=== PATIENT | female | born 1965 | race Caucasian/White ===

== ENCOUNTER → 2016-10-09 | Outpatient (CLI) | payer MEDICARE ==
[~2016-10-09] MED LIST: ACET500C OR; ASPI81TA3 OR; ATARAX OR; CALCI50TA PO; CALCTAB7 PO; CLAR1TAB2 PO; DULO30CA PO; ENDOCET OR; FIOR1CAP PO; FIORCAP3; FIORCAP3 OR; FIORICET; FIORICET PO; FIORTAB PO; FLEXERIL; FLEXERIL OR; FLEXERIL PO; KEFL250C6 PO; LASI20TA OR; MAXA10TA17; OMEP40CA2 PO; OXYC-208 PO; OXYC15TA76 PO; OXYC1SOL PO; PARO40TA87 PO; PAXI40TA OR; PERC10TA17 PO; PERC5TAB8; PERC7.5T PO; PHEN 25 OR; PRIL40CA OR; ROBA750T OR; SIMV40TA2 OR; SIMV80TA PO; SLEEP AIDE PO; THERGRAN OR; TIZA4TAB; TOPI25TA2 OR; TRAM50TA2 OR; TYL325; TYLENOL PM OR; Tricor OR; VITA-171 PO; VITA100066 PO; VITA500046 PO; VITA50TA12 OR; XANA1TAB2; XANA1TAB2 OR; XANA1TAB2 PO; ZANA4CAP; ZANT150T PO; ZITHTAB2 OR; [UNRECOGNIZED DRUG - OTHER]; [UNRECOGNIZED DRUG - OTHER] OR; [UNRECOGNIZED DRUG - OTHER] PO; augmentin PO; caltrate OR; claritan PO; endocet; flexeril OR
--- NOTE | 2016-10-20 01:10 | ECWPNPC ---
PATIENT NAME: FEDERICO MCFARLAND : 1965 GENDER: FEMALE VISIT DATE: 10/09/2016 DISCHARGE DATE: 10/09/16 1110 VISIT LOCKED DATE TIME: PHYSICIAN: SHANDA TSANG RESOURCE: SHANDA TSANG REASON FOR APPOINTMENT 1. BACK HISTORY OF PRESENT ILLNESS HISTORY OF PRESENT ILLNESS: PAIN THE PATIENT DESCRIBES THE PAIN... FALL RISK SCREENING: SCREENING :NO FALLS IN THE PAST YEAR TODAY'S VISIT: NOTES: RATES PAIN TODAY 8/10. DESCRIBES PAIN ACHING, BURNING, SHARP AND STABBING, TENDER, THROBBING AND SHOOTING AND SORE.IS REPORTING HAVING LOTS OF PAIN IN NECK AND SHOULDERS AND RADIATING DOWN SPINE. HAD A FEW BAD HEADACHES BUT BUT NOT MANY BEFORE. HAS ABLE TO WALK EVERY 2 HOURS ON RECENT TRIP. STATES HAS STARTED SMOKING AGAIN DUE TO PAIN. WANTS TO QUIT SMOKING. HAS NOTED SIGNIFICANT IMPROVEMENT IN HEADACHES SINCE STOPPING SIMVASTATIN. CURRENT MEDICATIONS TAKING XANAX 1 MG TABLET 1 TABLET ORALLY TID TAKING CLARITIN 10 MG TABLET 1 TABLET ORALLY ONCE A DAY TAKING OMEPRAZOLE 40 MG CAPSULE DELAYED RELEASE 1 CAPSULE ORALLY BID TAKING OYSTER SHELL CALCIUM 625 MG TABLET ORALLY BID TAKING PAXIL 40 MG TABLET 1 TABLET IN THE MORNING ORALLY ONCE A DAY TAKING GABAPENTIN 300 MG CAPSULE 1 CAPSULE ORALLY BID TAKING BUSPAR 15 MG TABLET ORALLY BID TAKING TIZANIDINE HCL 4 MG TABLET 1/2 -1 TABLET ORALLY EVERY 8 HRS TAKING TRAZODONE HCL 50 MG TABLET 1 -2 TABLET AT BEDTIME NEEDED ORALLY ONCE A DAY TAKING PHENERGAN 25 MG TABLET 1 TABLET ORALLY Q 8 HRS PRN NAUSEA TAKING HYSINGLA ER 30 MG TABLET ER 24 HOUR ABUSE-DETERRENT 1 TABLET ORALLY ONCE A DAY MDD 1 CHRONIC PAIN NOT-TAKING SIMVASTATIN 80 MG TABLET 1 TABLET IN THE EVENING ORALLY ONCE A DAY NOT-TAKING TESSALON PERLES 100 MG CAPSULE 1 CAPSULE NEEDED ORALLY THREE TIMES A DAY NOT-TAKING DRISDOL 98436 UNIT CAPSULE 1 CAPSULE ORALLY WEEKLY NOT-TAKING TRICOR 145 MG TABLET 1 TABLET ORALLY ONCE A DAY NOT-TAKING CYCLOBENZAPRINE HCL 10 MG TABLET 1 TABLET ORALLY THREE TIMES A DAY NOT-TAKING SLEEP AID 50 MG CAPSULE 1 CAPSULE AT BEDTIME ORALLY ONCE A DAY NOT-TAKING FIORICET 50-300-40 MG CAPSULE 1 CAPSULE NEEDED ORALLY EVERY 4 HRS PRN MIGRAINE MDD=2 UNKNOWN GABAPENTIN 300 MG CAPSULE 1 CAPSULE ORALLY BID MEDICATION LIST REVIEWED AND RECONCILED WITH THE PATIENT ALLERGIES CODEINE SULFATE: RASH: ALLERGY PENICILLIN (FOR ALLERGIES USE ONLY): RASH: ALLERGY FENTANYL: NAUSEA/VOMITING: ALLERGY TRAMADOL: HEADACHE: ALLERGY QUINOLONES: N/V AND LEG CRAMPS: ALLERGY NSAIDS: ANAPHYLAXIS: ALLERGY VARENICLINE TARTRATE: NAUSEA: ALLERGY CYMBALTA: ANXIETY/ALT MENTAL STATUS: SIDE EFFECTS MORPHINE SULFATE: RASH NAUSEA: ALLERGY SOCIAL HISTORY TOBACCO USE ARE YOU A:NONSMOKER LEARNING BARRIERS / SPECIAL NEEDS ORIENTED TO PLAN OF CARE: PATIENT, PAIN MANAGEMENT PATIENT, ORIENTED TO PLAN OF CARE: PATIENT, PAIN MANAGEMENT PATIENT. NEW PATIENT PAIN DIARY TODAY'S VISITNOTES FROM 0-10, WHAT LEVEL IS YOUR PAIN TODAY?0 PAIN CLINIC PFS, CLERGY, PUBLIC HEALTH REFERRALS PFS REFERRAL NEEDED?NO CLERGY REFERRAL NEEDED?NO PUBLIC HEALTH REFERRAL NEEDED?NO WAS THE PROVIDER NOTIFIED OF ANY PERTINENT INFO?NO PFS REFERRAL NEEDED?NO CLERGY REFERRAL NEEDED?NO PUBLIC HEALTH REFERRAL NEEDED?NO WAS THE PROVIDER NOTIFIED OF ANY PERTINENT INFO?NO REVIEW OF SYSTEMS CONSTITUTIONAL: ANY CHANGE IN YOUR MEDICAL CONDITION? NO . CHILLS NO . FEVER NO . INFECTION: DO YOU HAVE NEW INFECTIONS? NO . DO YOU HAVE HISTORY OF MRSA? NO . MUSCULOSKELETAL: ANY NEW PATTERNS OF PAIN OR NUMBNESS? NO . GASTROENTEROLOGY: GENERAL IS TAKING PHENERGAN DAILY FOR NAUSEA. BOWELS IMPROVED WITH DAILY EVACUATION. . ANY NEW CHANGE IN BOWEL CONTROL? NO . GENITOURINARY: ANY NEW CHANGE IN BLADDER CONTROL? NO . IS THERE A CHANCE YOU COULD BE ? NO . HEMATOLOGY/LYMPH: DO YOU TAKE ANY BLOOD THINNERS? (FOR EXAMPLE- COUMADIN, PLAVIX, AGGRENOX, PLATEL, PRADAXA, OR XARELTO) NO . WHEN WAS YOUR LAST DOSE? DATE: TIME: . NEUROLOGY: HAVE YOU FALLEN IN THE PAST 6 MONTHS? NO . ANY NEW EXTREMITY NUMBNESS OR WEAKNESS? NO . CARDIOLOGY: DO YOU HAVE A PACEMAKER OR DEFIBRILLATOR? NO . RESPIRATORY: HAVE YOU BEEN SICK IN THE PAST WEEK? NO . FEVER NO . FLU LIKE SYMPTOMS? NO . COUGH NO . INTEGUMENTARY: DO YOU HAVE ANY RASHES OR OPEN SORES? NO . ALLERGIC/IMMUNO: ARE YOU ALLERGIC TO SHELLFISH OR IV DYE? NO . ANY NEW ALLERGIES? NO . PSYCHIATRIC: DO YOU HAVE THOUGHTS OF HURTING YOURSELF OR SOMEONE ELSE? NO . ARE YOU ABUSED, NEGLECTED, OR IN AN UNSAFE ENVIRONMENT? NO . ENDOCRINOLOGY: ARE YOU DIABETIC? NO . OTHER: DO YOU NEED ANY PRESCRIPTIONS? NO . IF YES, PLEASE LIST: ____ . ANY NEW PROBLEMS WITH YOUR MEDICATIONS? NO . WHEN DID YOU LAST EAT? ____ . WHEN DID YOU LAST DRINK? ____ . WHAT DID YOU LAST DRINK? ____ . NAME OF PERSON DRIVING YOU HOME? ____ . DO YOU HAVE ANY OTHER QUESTIONS OR CONCERNS NO . PSYCHOLOGY: ANXIETY CONTINUES TO TREAT WITH XANAX NEEDED . SLEEP DISTURBANCES IMPROVING WITH TRZADONE AND TIZANIDINE . REVIEWED BY: PROVIDER: SHANDA GALAVIZ . VITAL SIGNS WT 237 LBS, HT 68 IN, BMI 36.03 INDEX, BP 138/79 MM HG, HR 93 /MIN, RR 18 /MIN, TEMP 98.0 F, OXYGEN SAT % 97%, NA INITIALS SC 10:24, REVIEWED BY: KG. EXAMINATION GENERAL EXAMINATION: PSYCHALERT , ORIENTED X 3 LESS ANXIOUS THAN AT LAST VISIT. LUNGS:CLEAR TO AUSCULTATION BILATERALLY. INTERMITTANT HARSH DRY COUGH WITHOUT PRODUCTION. HEART:HEART RATE REGULAR. MUSCULOSKELETAL:TENDER FROM BASE OF NECK TO SACRUM., WELL OVER ARMS. ABLE TO RISE EASILY TO STANDING POSITION. POSTURE UPRIGHT, GAIT NONANTALGIC. MUSCLE STRENGTH 5/5 DISTALLY AND PROXIMALLY IN UPPER AND LOWER EXTREMITIES. ASSESSMENTS DISC DISPLACEMENT, CERVICAL - M50.20 (PRIMARY) CHRONIC PRESCRIPTION OPIATE USE - Z79.899 MYALGIA - M79.1 CHRONIC PRESCRIPTION OPIATE USE - Z79.891 TREATMENT DISC DISPLACEMENT, CERVICAL LAB: COMPREHENSIVE METABOLIC PROFILE GLUCOSE 94 (70-105 - MG/DL) BUN 8 (7-18 - MG/DL) CREATININE 0.78 (0.55-1.02 - MG/DL) GLOMERULAR FILTRATION RATE > 60.0 (>58 - ) SODIUM 137 (136-145 - MEQ/L) POTASSIUM 4.7 (3.5-5.1 - MEQ/L) CHLORIDE 103 (98-107 - MEQ/L) CARBON DIOXIDE 25 (21-32 - MEQ/L) CALCIUM 8.7 (8.5-10.1 - MG/DL) AST/SGOT 10 (15-37 - U/L) ALT/SGPT 19 (12-78 - U/L) ALK PHOS 88 (45-117 - U/L) BILIRUBIN,TOTAL 0.2 (0.2-1.0 - MG/DL) TOTAL PROTEIN 7.1 (6.4-8.2 - GM/DL) ALBUMIN 3.8 (3.2-5.2 - GM/DL) ALB/GLOB RATIO 1.15 (1.00-1.93 - ) LAB: VITAMIN D 25-HYDROXY VITAMIN D 25 OH 10.9 (30.0-100.0 - NG/ML) LAB: LIPID PANEL (CARDIAC RISK) TRIGLYCERIDES 298 (<150 - MG/DL) CHOLESTEROL 271 (<200 - MG/DL) HDL CHOLESTEROL 43 (>40 - MG/DL) LDL CHOLESTEROL 168.4 (<100 - MG/DL) DWJ-[id number] 228 ( - MG/DL) CHOL/HDL RATIO 6.302 (<5 - ) NOTES: KEEP WALKING. REST WHEN NEEDED.START PHYSICAL THERAPY.CONTINUE CURRENT MEDS. CLINICAL NOTES: ISTOP REGISTRY REVIEWED AND DEMNOSTRATES COMPLLIANCE. BRINGS IN MEDICATIONS WHICH IS APPROPRIATE FOR WHAT WAS DISPENSED. RECENT URINE TOXICOLOGY REVIEWED. NO UNAUTHORIZED MEDICATIONS. NO ILLICIT SUBSTANCES AND PRESCRIBED MEDICATIONS WERE PRESENT. , REVIEWED WITH PATIENT THE POTENTIAL RISK OF INCREASED SEDATION, RESPIRATORY SUPPRESSION AND WITH THE COMBINATION OF BENZODIAZAPINE AND OPIOD MEDICATIONS. PATIENT STATES HE UNDERSTANDS THIS RISK AND WISHES TO CONTINUE WITH THERAPY. FOLLOW UP 26-28 DAYS ELECTRONICALLY SIGNED BY ARLIN DUARTE ON 10/19/2016 AT 10:52 AM EST DISCLAIMER : THIS IS A VISIT SUMMARY EXTRACTED FROM THE [employer] CHART. IT IS NOT A COPY OF THE [employer] PROGRESS NOTE. MANI
== END ==
LOC: M PAIN 10:20
PROVIDERS: ATTEND Nurse Practitioner Family
DX: Z09 Encounter for follow-up examination after completed treatment for conditions other than malignant neoplasm (principal); M50.20 Other cervical disc displacement, unspecified cervical region; M79.1 Myalgia; F17.200 Nicotine dependence, unspecified, uncomplicated; Z79.891 Long term (current) use of opiate analgesic; Z79.899 Other long term (current) drug therapy

== ENCOUNTER → 2016-10-09 | Outpatient (CLI) | payer OTHER ==
[2016-10-09 14:05] LABS: ALBUMIN 3.8 GM/DL (3.2-5.2); ALBUMIN/GLOBULIN RATIO 1.15 (1.00-1.93); ALKALINE PHOSPHATASE 88 U/L (45-117); ALT/SGPT 19 U/L (12-78); ANION GAP 9 MEQ/L (8-16); AST/SGOT 10 U/L (15-37); BILIRUBIN,TOTAL 0.2 MG/DL (0.2-1.0); BLOOD UREA NITROGEN 8 MG/DL (7-18); CALCIUM LEVEL 8.7 MG/DL (8.5-10.1); CARBON DIOXIDE LEVEL 25 MEQ/L (21-32); CHLORIDE LEVEL 103 MEQ/L (98-107); CHOLESTEROL LEVEL 271 MG/DL (<200); CREATININE FOR GFR 0.78 MG/DL (0.55-1.02); GLOMERULAR FILTRATION RATE > 60.0 (>58); GLUCOSE, FASTING 94 MG/DL (70-105); POTASSIUM SERUM 4.7 MEQ/L (3.5-5.1); SODIUM LEVEL 137 MEQ/L (136-145); TOTAL PROTEIN 7.1 GM/DL (6.4-8.2); TRIGLYCERIDES LEVEL 298 MG/DL (<150)
== END ==
LOC: M LAB 11:52
PROVIDERS: ATTEND Nurse Practitioner Family
DX: M50.20 Other cervical disc displacement, unspecified cervical region (principal)

== ENCOUNTER → 2016-12-06 | Outpatient (CLI) | payer MEDICARE ==
--- NOTE | 2016-12-06 23:21 | ECWPNPC ---
PATIENT NAME: FEDERICO MCFARLAND : 1965 GENDER: FEMALE VISIT DATE: 12/06/2016 DISCHARGE DATE: 12/06/16 1508 VISIT LOCKED DATE TIME: PHYSICIAN: SHANDA TSANG RESOURCE: SHANDA TSANG REASON FOR APPOINTMENT 1. BACK/NECK HISTORY OF PRESENT ILLNESS HISTORY OF PRESENT ILLNESS: PAIN THE PATIENT DESCRIBES THE PAIN... FALL RISK SCREENING: SCREENING :NO FALLS IN THE PAST YEAR TODAY'S VISIT: NOTES: RATES PAIN TODAY 8-9/10. STATES HAS HAD THE GI BUG AND HAD REALLY BAD FALL DOWN STEPS 3-4 WEEKS AGO. (5 STEPS). HAD LOTS OF BRUISES. NO APPARENT FRACTURES. STATES NECK HURTS MORE THAN BEFORE SURERY. ALL JOINTS ARE HURTING. . CURRENT MEDICATIONS TAKING XANAX 1 MG TABLET 1 TABLET ORALLY TID TAKING CLARITIN 10 MG TABLET 1 TABLET ORALLY ONCE A DAY TAKING OMEPRAZOLE 40 MG CAPSULE DELAYED RELEASE 1 CAPSULE ORALLY BID TAKING OYSTER SHELL CALCIUM 625 MG TABLET ORALLY BID TAKING PAXIL 40 MG TABLET 1 TABLET IN THE MORNING ORALLY ONCE A DAY TAKING GABAPENTIN 300 MG CAPSULE 1 CAPSULE ORALLY BID TAKING BUSPAR 15 MG TABLET ORALLY BID TAKING PHENERGAN 25 MG TABLET 1 TABLET ORALLY Q 8 HRS PRN NAUSEA TAKING TIZANIDINE HCL 4 MG TABLET 1/2 -1 TABLET ORALLY EVERY 8 HRS TAKING TRAZODONE HCL 50 MG TABLET 1 -2 TABLET AT BEDTIME NEEDED ORALLY ONCE A DAY TAKING HYSINGLA ER 30 MG TABLET ER 24 HOUR ABUSE-DETERRENT 1 TABLET ORALLY ONCE A DAY MDD 1 CHRONIC PAIN NOT-TAKING SIMVASTATIN 80 MG TABLET 1 TABLET IN THE EVENING ORALLY ONCE A DAY NOT-TAKING TESSALON PERLES 100 MG CAPSULE 1 CAPSULE NEEDED ORALLY THREE TIMES A DAY NOT-TAKING DRISDOL 20091 UNIT CAPSULE 1 CAPSULE ORALLY WEEKLY NOT-TAKING TRICOR 145 MG TABLET 1 TABLET ORALLY ONCE A DAY NOT-TAKING CYCLOBENZAPRINE HCL 10 MG TABLET 1 TABLET ORALLY THREE TIMES A DAY NOT-TAKING SLEEP AID 50 MG CAPSULE 1 CAPSULE AT BEDTIME ORALLY ONCE A DAY NOT-TAKING FIORICET 50-300-40 MG CAPSULE 1 CAPSULE NEEDED ORALLY EVERY 4 HRS PRN MIGRAINE MDD=2 UNKNOWN GABAPENTIN 300 MG CAPSULE 1 CAPSULE ORALLY BID MEDICATION LIST REVIEWED AND RECONCILED WITH THE PATIENT ALLERGIES CODEINE SULFATE: RASH: ALLERGY PENICILLIN (FOR ALLERGIES USE ONLY): RASH: ALLERGY FENTANYL: NAUSEA/VOMITING: ALLERGY TRAMADOL: HEADACHE: ALLERGY QUINOLONES: N/V AND LEG CRAMPS: ALLERGY NSAIDS: ANAPHYLAXIS: ALLERGY VARENICLINE TARTRATE: NAUSEA: ALLERGY CYMBALTA: ANXIETY/ALT MENTAL STATUS: SIDE EFFECTS MORPHINE SULFATE: RASH NAUSEA: ALLERGY SOCIAL HISTORY GENERAL: TOBACCO USE ARE YOU A:NONSMOKER LEARNING BARRIERS / SPECIAL NEEDS ORIENTED TO PLAN OF CARE: PATIENT, PAIN MANAGEMENT PATIENT, ORIENTED TO PLAN OF CARE: PATIENT, PAIN MANAGEMENT PATIENT. NEW PATIENT PAIN DIARY TODAY'S VISITNOTES FROM 0-10, WHAT LEVEL IS YOUR PAIN TODAY?0 PAIN CLINIC PFS, CLERGY, PUBLIC HEALTH REFERRALS PFS REFERRAL NEEDED?NO CLERGY REFERRAL NEEDED?NO PUBLIC HEALTH REFERRAL NEEDED?NO WAS THE PROVIDER NOTIFIED OF ANY PERTINENT INFO?NO PFS REFERRAL NEEDED?NO CLERGY REFERRAL NEEDED?NO PUBLIC HEALTH REFERRAL NEEDED?NO WAS THE PROVIDER NOTIFIED OF ANY PERTINENT INFO?NO REVIEW OF SYSTEMS CONSTITUTIONAL: ANY CHANGE IN YOUR MEDICAL CONDITION? PAIN IS BEEN INCREASING . CHILLS NO . FEVER NO . INFECTION: DO YOU HAVE NEW INFECTIONS? NO . DO YOU HAVE HISTORY OF MRSA? NO . MUSCULOSKELETAL: ANY NEW PATTERNS OF PAIN OR NUMBNESS? YES PAIN IS INCREASING . GASTROENTEROLOGY: ANY NEW CHANGE IN BOWEL CONTROL? YES DIARRHEA . GENITOURINARY: ANY NEW CHANGE IN BLADDER CONTROL? NO . IS THERE A CHANCE YOU COULD BE ? NO . HEMATOLOGY/LYMPH: DO YOU TAKE ANY BLOOD THINNERS? (FOR EXAMPLE- COUMADIN, PLAVIX, AGGRENOX, PLATEL, PRADAXA, OR XARELTO) NO . WHEN WAS YOUR LAST DOSE? DATE: TIME: . NEUROLOGY: HAVE YOU FALLEN IN THE PAST 6 MONTHS? NO . ANY NEW EXTREMITY NUMBNESS OR WEAKNESS? NO . CARDIOLOGY: DO YOU HAVE A PACEMAKER OR DEFIBRILLATOR? NO . RESPIRATORY: HAVE YOU BEEN SICK IN THE PAST WEEK? NO . FEVER NO . FLU LIKE SYMPTOMS? NO . COUGH NO . INTEGUMENTARY: DO YOU HAVE ANY RASHES OR OPEN SORES? NO . ALLERGIC/IMMUNO: ARE YOU ALLERGIC TO SHELLFISH OR IV DYE? NO . ANY NEW ALLERGIES? NO . PSYCHIATRIC: DO YOU HAVE THOUGHTS OF HURTING YOURSELF OR SOMEONE ELSE? NO . ARE YOU ABUSED, NEGLECTED, OR IN AN UNSAFE ENVIRONMENT? NO . ENDOCRINOLOGY: ARE YOU DIABETIC? NO . OTHER: DO YOU NEED ANY PRESCRIPTIONS? YES DO NOT FEEL THE MEDICATION IS HELPING WITH THE PAIN . IF YES, PLEASE LIST: ____ . ANY NEW PROBLEMS WITH YOUR MEDICATIONS? NO . WHEN DID YOU LAST EAT? ____ . WHEN DID YOU LAST DRINK? ____ . WHAT DID YOU LAST DRINK? ____ . NAME OF PERSON DRIVING YOU HOME? ____ . DO YOU HAVE ANY OTHER QUESTIONS OR CONCERNS NO . PSYCHOLOGY: ANXIETY ASSOCIATED WITH FAMILY ISSUES, PAIN . REVIEWED BY: PROVIDER: SHANDA GALAVIZ . VITAL SIGNS WT 248.0 LBS, HT 68 IN, BMI 37.70 INDEX, BP 140/82 MM HG, HR 85 /MIN, RR 16 /MIN, TEMP 97.7 F, OXYGEN SAT % 98, NA INITIALS TL 1411, REVIEWED BY: KG. EXAMINATION GENERAL EXAMINATION: PSYCHALERT , ORIENTED X 3 LESS ANXIOUS THAN AT LAST VISIT. LUNGS:CLEAR TO AUSCULTATION BILATERALLY.NO WHEEZES, RALES OR RHONCHI. HEART:HEART RATE REGULAR. MUSCULOSKELETAL:TENDER FROM BASE OF NECK TO SACRUM., WELL OVER ARMS. ABLE TO RISE EASILY TO STANDING POSITION. POSTURE UPRIGHT, GAIT NONANTALGIC. MUSCLE STRENGTH 5/5 DISTALLY AND PROXIMALLY IN UPPER AND LOWER EXTREMITIES. ASSESSMENTS DISC DISPLACEMENT, CERVICAL - M50.20 (PRIMARY) CHRONIC PRESCRIPTION OPIATE USE - Z79.899 MYALGIA - M79.1 CHRONIC PRESCRIPTION OPIATE USE - Z79.891 TREATMENT DISC DISPLACEMENT, CERVICAL STOP HYSINGLA ER TABLET ER 24 HOUR ABUSE-DETERRENT, 30 MG, 1 TABLET, ORALLY, ONCE A DAY MDD 1 CHRONIC PAIN START OXYCODONE HCL TABLET, 5 MG, 1 TABLET, ORALLY, EVERY 8-12 HOURS PRN PAIN MDD=2, 30 DAY(S), 60, REFILLS 0 REFILL PHENERGAN TABLET, 25 MG, 1 TABLET, ORALLY, Q 8 HRS PRN NAUSEA, 30 DAYS, 30, REFILLS 5 START TRAZODONE HCL TABLET, 150 MG, 1 TABLET AT BEDTIME NEEDED, ORALLY, ONCE A DAY, 30 DAY(S), 30, REFILLS 2 NOTES: CALL FOR APPOINTMENT WITH DR JOSELYN FREEMAN [phone] START PHYSICAL THERAPY, REVIEWED WITH PATIENT THE POTENTIAL RISK OF INCREASED SEDATION, RESPIRATORY SUPPRESSION AND WITH THE COMBINATION OF BENZODIAZAPINE AND OPIOD MEDICATIONS. PATIENT STATES HE UNDERSTANDS THIS RISK AND WISHES TO CONTINUE WITH THERAPY. CLINICAL NOTES: ISTOP REGISTRY REVIEWED AND DEMNOSTRATES COMPLLIANCE. BRINGS IN MEDICATIONS WHICH IS APPROPRIATE FOR WHAT WAS DISPENSED. RECENT URINE TOXICOLOGY REVIEWED. NO UNAUTHORIZED MEDICATIONS. NO ILLICIT SUBSTANCES AND PRESCRIBED MEDICATIONS WERE PRESENT. PROCEDURE CODES FA211 ESTABILISHED PATIENT [facility] CHARGE DISPOSITION & COMMUNICATION FOLLOW UP 1 MONTH ELECTRONICALLY SIGNED BY ARLIN DUARTE ON 12/06/2016 AT 05:20 PM EST DISCLAIMER : THIS IS A VISIT SUMMARY EXTRACTED FROM THE [facility] CHART. IT IS NOT A COPY OF THE [employer] PROGRESS NOTE. MTDD
== END ==
LOC: M PAIN 14:20
PROVIDERS: ATTEND Nurse Practitioner Family
DX: Z09 Encounter for follow-up examination after completed treatment for conditions other than malignant neoplasm (principal); G89.29 Other chronic pain; M50.20 Other cervical disc displacement, unspecified cervical region; M79.1 Myalgia; R19.7 Diarrhea, unspecified; Z88.5 Allergy status to narcotic agent; Z88.0 Allergy status to penicillin; Z88.8 Allergy status to other drugs, medicaments and biological substances; Z88.6 Allergy status to analgesic agent; Z79.891 Long term (current) use of opiate analgesic; Z79.899 Other long term (current) drug therapy

== ENCOUNTER → 2017-01-04 | Outpatient (CLI) | payer MEDICARE ==
--- NOTE | 2017-01-18 00:09 | ECWPNPC ---
PATIENT NAME: FEDERICO MCFARLAND : 1965 GENDER: FEMALE VISIT DATE: 01/04/2017 DISCHARGE DATE: 01/04/17 1316 VISIT LOCKED DATE TIME: PHYSICIAN: SHANDA TSANG RESOURCE: SHANDA TSANG REASON FOR APPOINTMENT 1. NECK,BACK HISTORY OF PRESENT ILLNESS HISTORY OF PRESENT ILLNESS: PAIN THE PATIENT DESCRIBES THE PAIN... FALL RISK SCREENING: SCREENING :NO FALLS IN THE PAST YEAR TODAY'S VISIT: NOTES: RATES PAIN TODAY 8/10. REPORTS SHE CAN NOT TOLERATE THE PAIN.IS HOPING TO GET PT STARTED SOON. HAS SHOOTING PAINS ACROSS BACK OF NECK TO SHOULDER BLADES.. CURRENT MEDICATIONS TAKING XANAX 1 MG TABLET 1 TABLET ORALLY TID TAKING CLARITIN 10 MG TABLET 1 TABLET ORALLY ONCE A DAY TAKING OMEPRAZOLE 40 MG CAPSULE DELAYED RELEASE 1 CAPSULE ORALLY BID TAKING OYSTER SHELL CALCIUM 625 MG TABLET ORALLY BID TAKING PAXIL 40 MG TABLET 1 TABLET IN THE MORNING ORALLY ONCE A DAY TAKING GABAPENTIN 300 MG CAPSULE 1 CAPSULE ORALLY BID TAKING BUSPAR 15 MG TABLET ORALLY BID TAKING TIZANIDINE HCL 4 MG TABLET 1/2 -1 TABLET ORALLY EVERY 8 HRS TAKING OXYCODONE HCL 5 MG TABLET 1 TABLET ORALLY EVERY 8-12 HOURS PRN PAIN MDD=2 TAKING TRAZODONE HCL 150 MG TABLET 1 TABLET AT BEDTIME NEEDED ORALLY ONCE A DAY TAKING PHENERGAN 25 MG TABLET 1 TABLET ORALLY Q 8 HRS PRN NAUSEA NOT-TAKING SLEEP AID 50 MG CAPSULE 1 CAPSULE AT BEDTIME ORALLY ONCE A DAY DISCONTINUED TRAZODONE HCL 50 MG TABLET 1 -2 TABLET AT BEDTIME NEEDED ORALLY ONCE A DAY DISCONTINUED SIMVASTATIN 80 MG TABLET 1 TABLET IN THE EVENING ORALLY ONCE A DAY DISCONTINUED TESSALON PERLES 100 MG CAPSULE 1 CAPSULE NEEDED ORALLY THREE TIMES A DAY DISCONTINUED DRISDOL 07376 UNIT CAPSULE 1 CAPSULE ORALLY WEEKLY DISCONTINUED TRICOR 145 MG TABLET 1 TABLET ORALLY ONCE A DAY DISCONTINUED CYCLOBENZAPRINE HCL 10 MG TABLET 1 TABLET ORALLY THREE TIMES A DAY DISCONTINUED FIORICET 50-300-40 MG CAPSULE 1 CAPSULE NEEDED ORALLY EVERY 4 HRS PRN MIGRAINE MDD=2 DISCONTINUED GABAPENTIN 300 MG CAPSULE 1 CAPSULE ORALLY BID MEDICATION LIST REVIEWED AND RECONCILED WITH THE PATIENT ALLERGIES CODEINE SULFATE: RASH: ALLERGY PENICILLIN (FOR ALLERGIES USE ONLY): RASH: ALLERGY FENTANYL: NAUSEA/VOMITING: ALLERGY TRAMADOL: HEADACHE: ALLERGY QUINOLONES: N/V AND LEG CRAMPS: ALLERGY NSAIDS: ANAPHYLAXIS: ALLERGY VARENICLINE TARTRATE: NAUSEA: ALLERGY CYMBALTA: ANXIETY/ALT MENTAL STATUS: SIDE EFFECTS MORPHINE SULFATE: RASH NAUSEA: ALLERGY SOCIAL HISTORY GENERAL: PAIN CLINIC PFS, CLERGY, PUBLIC HEALTH REFERRALS CLERGY REFERRAL NEEDED?NO WAS THE PROVIDER NOTIFIED OF ANY PERTINENT INFO?NO PFS REFERRAL NEEDED?NO PUBLIC HEALTH REFERRAL NEEDED?NO PATIENT: ____. REVIEW OF SYSTEMS CONSTITUTIONAL: ANY CHANGE IN YOUR MEDICAL CONDITION? NO . CHILLS NO . FEVER NO . INFECTION: DO YOU HAVE NEW INFECTIONS? NO . DO YOU HAVE HISTORY OF MRSA? NO . MUSCULOSKELETAL: ANY NEW PATTERNS OF PAIN OR NUMBNESS? NO . GASTROENTEROLOGY: ANY NEW CHANGE IN BOWEL CONTROL? NO . GENITOURINARY: ANY NEW CHANGE IN BLADDER CONTROL? NO . IS THERE A CHANCE YOU COULD BE ? NO . HEMATOLOGY/LYMPH: DO YOU TAKE ANY BLOOD THINNERS? (FOR EXAMPLE- COUMADIN, PLAVIX, AGGRENOX, PLATEL, PRADAXA, OR XARELTO) NO . WHEN WAS YOUR LAST DOSE? DATE: TIME: . NEUROLOGY: HAVE YOU FALLEN IN THE PAST 6 MONTHS? NO . ANY NEW EXTREMITY NUMBNESS OR WEAKNESS? NO . CARDIOLOGY: DO YOU HAVE A PACEMAKER OR DEFIBRILLATOR? NO . CHEST PAIN PATIENT DENIES . RESPIRATORY: HAVE YOU BEEN SICK IN THE PAST WEEK? NO . FEVER NO . FLU LIKE SYMPTOMS? NO . COUGH NO . INTEGUMENTARY: DO YOU HAVE ANY RASHES OR OPEN SORES? NO . ALLERGIC/IMMUNO: ARE YOU ALLERGIC TO SHELLFISH OR IV DYE? NO . ANY NEW ALLERGIES? NO . PSYCHIATRIC: DO YOU HAVE THOUGHTS OF HURTING YOURSELF OR SOMEONE ELSE? NO . ARE YOU ABUSED, NEGLECTED, OR IN AN UNSAFE ENVIRONMENT? NO . ENDOCRINOLOGY: ARE YOU DIABETIC? NO . OTHER: DO YOU NEED ANY PRESCRIPTIONS? YES . IF YES, PLEASE LIST: WHAT EVER YOU ARE GOING TO GIVE ME FOR PAIN. TIZANIDINE ALSO . ANY NEW PROBLEMS WITH YOUR MEDICATIONS? NO . WHEN DID YOU LAST EAT? ____ . WHEN DID YOU LAST DRINK? ____ . WHAT DID YOU LAST DRINK? ____ . NAME OF PERSON DRIVING YOU HOME? ____ . DO YOU HAVE ANY OTHER QUESTIONS OR CONCERNS NEED SOMETHING MORE FOR PAIN.&QUOT; PAIN IS SO BAD I CAN'T STAND IT&QUOT;&NBSP;. REVIEWED BY: PROVIDER: SHANDA GALAVIZ . VITAL SIGNS WT 248 LBS, HT 68 IN, BMI 37.70 INDEX, BP 159/79 MM HG, HR 67 /MIN, RR 16 /MIN, TEMP 98.3 F, OXYGEN SAT % 97%, REVIEWED BY: MELINDA. EXAMINATION GENERAL EXAMINATION: PSYCHALERT , ORIENTED X 3 LESS ANXIOUS THAN AT LAST VISIT. LUNGS:CLEAR TO AUSCULTATION BILATERALLY.NO WHEEZES, RALES OR RHONCHI. HEART:HEART RATE REGULAR. MUSCULOSKELETAL:TENDER FROM BASE OF NECK TO SACRUM., WELL OVER ARMS. ABLE TO RISE EASILY TO STANDING POSITION. POSTURE UPRIGHT, GAIT NONANTALGIC. MUSCLE STRENGTH 5/5 DISTALLY AND PROXIMALLY IN UPPER AND LOWER EXTREMITIES. ASSESSMENTS DISC DISPLACEMENT, CERVICAL - M50.20 (PRIMARY) CHRONIC PRESCRIPTION OPIATE USE - Z79.899 MYALGIA - M79.1 CHRONIC PRESCRIPTION OPIATE USE - Z79.891 TREATMENT DISC DISPLACEMENT, CERVICAL REFILL TIZANIDINE HCL TABLET, 4 MG, 1/2 -1 TABLET, ORALLY, EVERY 8 HRS, 30 DAY(S), 90, REFILLS 2 REFILL OXYCODONE HCL TABLET, 5 MG, 1 TABLET, ORALLY, EVERY 8-12 HOURS PRN PAIN MDD=2, 30 DAY(S), 60, REFILLS 0 REFILL GABAPENTIN CAPSULE, 400 MG, 1 CAPSULE, ORALLY, BID, 30 DAYS, 60, REFILLS 5 CLINICAL NOTES: ISTOP REGISTRY REVIEWED AND DEMNOSTRATES COMPLLIANCE. BRINGS IN MEDICATIONS WHICH IS APPROPRIATE FOR WHAT WAS DISPENSED. RECENT URINE TOXICOLOGY REVIEWED. NO UNAUTHORIZED MEDICATIONS. NO ILLICIT SUBSTANCES AND PRESCRIBED MEDICATIONS WERE PRESENT. PROCEDURE CODES FA211 ESTABILISHED PATIENT [facility] CHARGE DISPOSITION & COMMUNICATION FOLLOW UP 6 WEEKS ELECTRONICALLY SIGNED BY ARLIN DUARTE ON 01/16/2017 AT 06:29 PM EDT DISCLAIMER : THIS IS A VISIT SUMMARY EXTRACTED FROM THE [employer] CHART. IT IS NOT A COPY OF THE [employer] PROGRESS NOTE. MANI
== END ==
LOC: M PAIN 11:20
PROVIDERS: ATTEND Nurse Practitioner Family
DX: Z09 Encounter for follow-up examination after completed treatment for conditions other than malignant neoplasm (principal); G89.29 Other chronic pain; M50.20 Other cervical disc displacement, unspecified cervical region; M79.1 Myalgia; Z88.5 Allergy status to narcotic agent; Z88.0 Allergy status to penicillin; Z88.8 Allergy status to other drugs, medicaments and biological substances; Z88.6 Allergy status to analgesic agent; Z79.891 Long term (current) use of opiate analgesic; Z79.899 Other long term (current) drug therapy

== ENCOUNTER → 2017-01-16 | Outpatient (CLI) | payer OTHER ==
[2017-01-16 10:11] LABS: BASO % 0.5 % (0.0-1.0); EOS # 0.2 K/mm3 (0.0-0.50); EOS % 3.3 % (0.0-3.0); LYMPH # 2.4 K/mm3 (1.5-4.5); LYMPH % 32.9 % (24.0-44.0); MEAN CORPUSCULAR HEMOGLOBIN 27.2 pg (27.0-33.0); MEAN CORPUSCULAR HGB CONC 31.9 g/dl (32.0-36.5); MEAN CORPUSCULAR VOLUME 85.3 fl (80.0-96.0); MONO # 0.3 K/mm3 (0.0-0.8); MONO % 4.6 % (0.0-5.0); NEUTROPHILS # 4.2 K/mm3 (1.8-7.7); NEUTROPHILS % 57.9 % (36.0-66.0); RED CELL DISTRIBUTION WIDTH 14.8 % (11.5-14.5); WHITE BLOOD COUNT 7.2 K/mm3 (4.0-10.0)
[2017-01-16 10:49] LABS: ALBUMIN 3.6 GM/DL (3.2-5.2); ALBUMIN/GLOBULIN RATIO 1.06 (1.00-1.93); ALKALINE PHOSPHATASE 88 U/L (45-117); ALT/SGPT 15 U/L (12-78); ANION GAP 8 MEQ/L (8-16); AST/SGOT 8 U/L (15-37); BILIRUBIN,TOTAL 0.2 MG/DL (0.2-1.0); BLOOD UREA NITROGEN 7 MG/DL (7-18); CALCIUM LEVEL 8.9 MG/DL (8.5-10.1); CARBON DIOXIDE LEVEL 29 MEQ/L (21-32); CHLORIDE LEVEL 103 MEQ/L (98-107); CHOLESTEROL LEVEL 232 MG/DL (<200); CREATININE FOR GFR 0.69 MG/DL (0.55-1.02); GLOMERULAR FILTRATION RATE > 60.0 (>51); GLUCOSE, FASTING 105 MG/DL (70-105); POTASSIUM SERUM 4.4 MEQ/L (3.5-5.1); SODIUM LEVEL 140 MEQ/L (136-145); TRIGLYCERIDES LEVEL 320 MG/DL (<150)
== END ==
LOC: M LAB 09:25
PROVIDERS: ATTEND Physician Assistant Medical
DX: E78.2 Mixed hyperlipidemia (principal); F41.1 Generalized anxiety disorder; E55.9 Vitamin D deficiency, unspecified

== ENCOUNTER → 2017-01-22 | Outpatient (CLI) | payer OTHER ==
--- NOTE | 2017-01-22 14:26 | REPMRS ---
Patient History The patient states she has not had a clinical breast exam in over a year. Family history of ovarian cancer in sister at age 30, colorectal cancer in 2 maternal aunts, and colorectal cancer in brother at age 39. Digital Mammo Screening Bilat: January 22, 2017 - Exam #: [id number] Bilateral CC and MLO view(s) were taken. Technologist: Lashaun Post, Technologist FINDINGS: There are scattered fibroglandular densities. There is no evidence of dominant mass, architectural distortion, or clustered microcalcification typical of malignancy. ASSESSMENT: BI-RADS/ACR category 1 mammogram. Negative. Recommendation Routine screening mammogram of both breasts in 1 year (for women over age 40). This mammogram was interpreted with the aid of an FDA-approved computer-aided dectection system. Electronically Signed By: Emmett Hardwick MD 01/22/17 9422
== END ==
LOC: M RAD 13:07
PROVIDERS: ATTEND Physician Assistant Medical
DX: Z12.31 Encounter for screening mammogram for malignant neoplasm of breast (principal)

== ENCOUNTER → 2017-02-28 | Outpatient (CLI) | payer OTHER ==
[~2017-02-28] MED LIST changes: +GASTROGRAFIN SOLUTION 30ML (Q9963) As Ordered ONE; +ISOVUE-370 76% 100ML VIAL (Q9967) As Ordered ONE
--- NOTE | 2017-02-28 15:59 | REP ---
Clinical: Abdominal pain. Technique: Axial contrast enhanced images from the lung bases to the pubic symphysis using oral oral and 100 ml Isovue 370 intravenous contrast material with precontrast images of the abdomen as well as coronal and sagittal re-formations. Findings: Lung bases are clear. Visualized heart and pericardium are normal. Liver, spleen, pancreas, bilateral adrenal glands and kidneys are normal. The patient is status post cholecystectomy. The enteric system is without obstruction or acute inflammatory process and a normal terminal ileum and appendix are identified in the right lower quadrant. 1 cm fat containing periumbilical hernia noted. Pelvis demonstrates normal bladder and age-appropriate uterus/adnexa. No free air. No free fluid. No significant adenopathy. Vasculature is normal. Surrounding musculoskeletal structures demonstrate age-related degenerative changes without focal osseous abnormality. Impression: 1. 1 cm fat containing periumbilical hernia. 2. Otherwise normal abdominopelvic CT. Signed by Alex Álvarez MD 02/28/2017 03:51 P
== END ==
LOC: M RAD 13:28
PROVIDERS: ATTEND Physician Assistant Medical
DX: K42.9 Umbilical hernia without obstruction or gangrene (principal)
CPT/HCPCS: 74178; Q9963; Q9967

== ENCOUNTER → 2017-04-05 | Outpatient (CLI) | payer MEDICAID, MEDICARE, OTHER ==
[~2017-04-05] MED LIST changes: -GASTROGRAFIN SOLUTION 30ML (Q9963) As Ordered ONE; -ISOVUE-370 76% 100ML VIAL (Q9967) As Ordered ONE; +KEFL250C11 PO; -KEFL250C6 PO; +PARO40TA3 PO; -PARO40TA87 PO; -PERC10TA17 PO; +PERC10TA26 PO
--- NOTE | 2017-04-17 00:15 | ECWPNPC ---
PATIENT NAME: FEDERICO MCFARLAND : 1965 GENDER: FEMALE VISIT DATE: 04/05/2017 DISCHARGE DATE: 04/05/17 1106 VISIT LOCKED DATE TIME: PHYSICIAN: SHANDA TSANG RESOURCE: SHANDA TSANG REASON FOR APPOINTMENT 1. BACK HISTORY OF PRESENT ILLNESS HISTORY OF PRESENT ILLNESS: PAIN THE PATIENT DESCRIBES THE PAIN... FALL RISK SCREENING: SCREENING :NO FALLS IN THE PAST YEAR TODAY'S VISIT: NOTES: RATES PAIN TODAY 8-9/10. DESCRIBES PAIN CONSTANT, ACHING, BURNING, SHARP AND STABBING, SHOOTING TENDER AND THROBBING. IS NOTING PAIN FROM TOP OF HEAD TO LOW BACK AND BOTH HIPS WELL AT KNEES. NOTES CONSTANTANT THROBBING MIGRAINOUS HEADACHE WITH ASSOCIATED NAUEA AND OCCASIONAL VOMITING. HEAACHES HAVE BEEN PERSISTANT FOR MORE THAN 10 YEARS AND SEEM TO BE WORSE LATELY. INTENSE HEADACHE CAN LAST MORE THAN 24 HOURS AND RECURRS ALMOST DAILY. HAS USED MANY MEDS FOR HEADPAIN OVER THE YEARS WITH NO EFFECT. HEADACHE MEDS USED HAVE BEEN SUMATRIPTAN (ADVERSE EFFECT.NO EFFECT), FIORICET/SUBOPTIMAL EFFECT, TOPAMAX/ADVERSE EFFECT, AMITRIPTYLINE/ADVERSE EFECT, GABAPENTIN/ADVERSE EFFECT, CYMBALTA/ADVERSE EFFECT, MULTIPLE NSAIDS INCLUDING NAPROXEN, IBUPROPHEN/ADVERSE AND SUBOPTIMAL EFFECT. CURRENT MEDICATIONS TAKING XANAX 1 MG TABLET 1 TABLET ORALLY TID, NOTES: 04/05/17 AT 0800 TAKING CLARITIN 10 MG TABLET 1 TABLET ORALLY ONCE A DAY TAKING OMEPRAZOLE 40 MG CAPSULE DELAYED RELEASE 1 CAPSULE ORALLY BID TAKING OYSTER SHELL CALCIUM 625 MG TABLET ORALLY BID TAKING PAXIL 40 MG TABLET 1 TABLET IN THE MORNING ORALLY ONCE A DAY TAKING BUSPAR 15 MG TABLET ORALLY BID TAKING PHENERGAN 25 MG TABLET 1 TABLET ORALLY Q 8 HRS PRN NAUSEA TAKING GABAPENTIN 400 MG CAPSULE 1 CAPSULE ORALLY BID, NOTES: 04/05/17 AT 0800 TAKING TIZANIDINE HCL 4 MG TABLET 1/2 -1 TABLET ORALLY EVERY 8 HRS TAKING TRAZODONE HCL 150 MG TABLET 1 TABLET AT BEDTIME NEEDED ORALLY ONCE A DAY TAKING OXYCODONE HCL 5 MG TABLET 1 TABLET ORALLY EVERY 8-12 HOURS PRN PAIN MDD=2, NOTES: 04/04/17 AT 1400 TAKING ZOCOR 40 MG TABLET 1 TABLET IN THE EVENING ORALLY ONCE A DAY NOT-TAKING SLEEP AID 50 MG CAPSULE 1 CAPSULE AT BEDTIME ORALLY ONCE A DAY MEDICATION LIST REVIEWED AND RECONCILED WITH THE PATIENT ALLERGIES CODEINE SULFATE: RASH: ALLERGY PENICILLIN (FOR ALLERGIES USE ONLY): RASH: ALLERGY FENTANYL: NAUSEA/VOMITING: ALLERGY TRAMADOL: HEADACHE: ALLERGY QUINOLONES: N/V AND LEG CRAMPS: ALLERGY NSAIDS: ANAPHYLAXIS: ALLERGY VARENICLINE TARTRATE: NAUSEA: ALLERGY CYMBALTA: ANXIETY/ALT MENTAL STATUS: SIDE EFFECTS MORPHINE SULFATE: RASH NAUSEA: ALLERGY SOCIAL HISTORY GENERAL: PAIN CLINIC PFS, CLERGY, PUBLIC HEALTH REFERRALS PFS REFERRAL NEEDED?NO CLERGY REFERRAL NEEDED?NO PUBLIC HEALTH REFERRAL NEEDED?NO WAS THE PROVIDER NOTIFIED OF ANY PERTINENT INFO?NO HAS THE PATIENT BEEN EDUCATED REGARDING HIS/HER PLAN OF CARE?YES HAS THE PATIENT BEEN EDUCATED REGARDING PAIN, THE RISK FOR PAIN, THE IMPORTANCE OF EFFECTIVE PAIN MANAGEMENT, AND THE PAIN ASSESSMENT PROCESS?YES PATIENT: ____. REVIEW OF SYSTEMS REVIEWED BY: PROVIDER: SHANDA GALAVIZ . CONSTITUTIONAL: ANY CHANGE IN YOUR MEDICAL CONDITION? NO . CHILLS NO . FEVER NO . INFECTION: DO YOU HAVE NEW INFECTIONS? NO - REPORTS HAD "FLU" FOR 7 WEEKS. WHOLE FAMILY WAS SICK. THIS HAS RESOLVED BUT STILL CONGESTED IN AM. . DO YOU HAVE HISTORY OF MRSA? NO . MUSCULOSKELETAL: ANY NEW PATTERNS OF PAIN OR NUMBNESS? YES, INCREASED PAIN . GASTROENTEROLOGY: ANY NEW CHANGE IN BOWEL CONTROL? NO . GENITOURINARY: ANY NEW CHANGE IN BLADDER CONTROL? YES . IS THERE A CHANCE YOU COULD BE ? NO . HEMATOLOGY/LYMPH: DO YOU TAKE ANY BLOOD THINNERS? (FOR EXAMPLE- COUMADIN, PLAVIX, AGGRENOX, PLATEL, PRADAXA, OR XARELTO) NO . WHEN WAS YOUR LAST DOSE? DATE: TIME: . NEUROLOGY: HAVE YOU FALLEN IN THE PAST 6 MONTHS? YES . ANY NEW EXTREMITY NUMBNESS OR WEAKNESS? NO . DIZZINESS STOOD, HAD WEAKNESS OF LEGS, SEVERE DIZZINESS AND LOSS OF CONSCIOUSNESS. . HEADACHE MARKED INCREASED FREQ IN HEADACHES OVER THE LAST SEVVERAL WEEKS. PCP DID CT OF BRAIN. . CARDIOLOGY: DO YOU HAVE A PACEMAKER OR DEFIBRILLATOR? NO . RESPIRATORY: HAVE YOU BEEN SICK IN THE PAST WEEK? YES . FEVER NO . FLU LIKE SYMPTOMS? NO . COUGH NO . INTEGUMENTARY: DO YOU HAVE ANY RASHES OR OPEN SORES? NO . ALLERGIC/IMMUNO: ARE YOU ALLERGIC TO SHELLFISH OR IV DYE? NO . ANY NEW ALLERGIES? NO . PSYCHIATRIC: DO YOU HAVE THOUGHTS OF HURTING YOURSELF OR SOMEONE ELSE? NO . ARE YOU ABUSED, NEGLECTED, OR IN AN UNSAFE ENVIRONMENT? NO . ENDOCRINOLOGY: ARE YOU DIABETIC? NO . OTHER: DO YOU NEED ANY PRESCRIPTIONS? YES . IF YES, PLEASE LIST: ____ . ANY NEW PROBLEMS WITH YOUR MEDICATIONS? NO . WHEN DID YOU LAST EAT? ____ . WHEN DID YOU LAST DRINK? ____ . WHAT DID YOU LAST DRINK? ____ . NAME OF PERSON DRIVING YOU HOME? ____ . DO YOU HAVE ANY OTHER QUESTIONS OR CONCERNS NO . VITAL SIGNS WT 226 LBS, HT 68 IN, BMI 34.36 INDEX, BP 150/74 MM HG, HR 86 /MIN, RR 16 /MIN, TEMP 97.8 F, OXYGEN SAT % 96%, NA INITIALS AW 1000, REVIEWED BY: CS. EXAMINATION GENERAL EXAMINATION: PSYCHALERT , ORIENTED X 3 LESS ANXIOUS THAN AT LAST VISIT. LUNGS:CLEAR TO AUSCULTATION BILATERALLY.NO WHEEZES, RALES OR RHONCHI. HEART:HEART RATE REGULAR. MUSCULOSKELETAL:TENDER FROM BASE OF NECK TO SACRUM., WELL OVER ARMS. ABLE TO RISE EASILY TO STANDING POSITION. POSTURE UPRIGHT, GAIT NONANTALGIC. MUSCLE STRENGTH 5/5 DISTALLY AND PROXIMALLY IN UPPER AND LOWER EXTREMITIES. EXQUISITE TENDERENSS OVER BILATERAL TEMPLES, OCCIPITAL NOTCH REGION. NEUROLOGIC EXAM:EOM'S INTACT WITH FEW BEATS NYSTAGMUS WITH RIGHT GAZE. GAZE DISCONJUGATE WITH RIGHT GAZE. SPEACH NONDYSARTHRIC. TONGUE PROTRUDES AT MIDLINE. FINGER TO FINGER COORDINATION NONDYSMETRIC. NO ATAXIA. HYPERSENSITIVITY TO NECK, UPPER SHOULDERS TO LIGHT TOUCH.. ASSESSMENTS DISC DISPLACEMENT, CERVICAL - M50.20 (PRIMARY) CHRONIC PRESCRIPTION OPIATE USE - Z79.899 MYALGIA - M79.1 CHRONIC PRESCRIPTION OPIATE USE - Z79.891 TREATMENT DISC DISPLACEMENT, CERVICAL REFILL OXYCODONE HCL TABLET, 5 MG, 1 TABLET, ORALLY, EVERY 8-12 HOURS PRN PAIN MDD=2, 30 DAY(S), 60, REFILLS 0 REFILL PHENERGAN TABLET, 25 MG, 1 TABLET, ORALLY, Q 8 HRS PRN NAUSEA, 30 DAYS, 30, REFILLS 5 START SOMA TABLET, 350 MG, 1 TABLET NEEDED, ORALLY, BID, 30 DAY(S), 60 TABLET, REFILLS 1 [facility] MRI SPINE, CERVICAL WITH [id number],SUSAN M 04/05/2017 10:40:01 AM > POST CERVICAL FUSION WITH CONTINUED PAIN CHEMODENERVATION (BOTOX) MISC-MIGRAINE HEADACHES NOTES: UTOX TODAY. PREVENTIVE MEDICINE PAIN CLINIC TEACHING: MEDICATIONS SOMA TEACHING DONE.. PROCEDURE TEACHING PRE-PROCEDURE INSTRUCTIONS DONE. QUESTIONS ANSWERED AND PATIENT VERBALIZES UNDERSTANDING.. PROCEDURE CODES FA211 ESTABILISHED PATIENT FORMERLY [facility] CHARGE DISPOSITION & COMMUNICATION FOLLOW UP 1 MONTH (REASON: CHECK AUTH FOR MRI W CONTRAT CERVICAL SPINR AND BOTOX) ELECTRONICALLY SIGNED BY ARLIN DUARTE ON 04/16/2017 AT 09:02 AM EDT DISCLAIMER : THIS IS A VISIT SUMMARY EXTRACTED FROM THE [employer] CHART. IT IS NOT A COPY OF THE [employer] PROGRESS NOTE. MANI
== END ==
LOC: M PAIN 10:00
PROVIDERS: ATTEND Nurse Practitioner Family
DX: G89.29 Other chronic pain (principal); M50.20 Other cervical disc displacement, unspecified cervical region; M79.1 Myalgia; Z88.5 Allergy status to narcotic agent; Z88.0 Allergy status to penicillin; Z88.6 Allergy status to analgesic agent; Z88.8 Allergy status to other drugs, medicaments and biological substances; Z79.891 Long term (current) use of opiate analgesic; Z79.899 Other long term (current) drug therapy

== ENCOUNTER → 2017-05-06 | Outpatient (CLI) | payer OTHER ==
--- NOTE | 2017-05-06 15:44 | REP ---
MR CERVICAL SPINE WITHOUT AND WITH CONTRAST: HISTORY: Neck pain. CONTRAST: ProHance 18 mL. COMPARISON: 10/14/2015. A disc bugle is present at the C3-4 level. There is mild effacement of the thecal sac without spinal cord compression. Bilateral uncinate process and left facet hypertrophy are present. These findings produce mild and minimal narrowing of the right and left C3 neural foramina respectively. A disc bulge and small central disc extrusion are present at the C4-5 level. There is inferior migration of disc material. There is minimal spinal cord compression. Uncinate process hypertrophy is present on the left. This produces mild narrowing of the left C4 neural foramen. The right C4 neural foramen is patent. The patient is status post C5-7 anterior spinal fusion. A fixation plate and bone graft material are present. Posterior osteophytes are present at the C5-6 level. There is moderate effacement of the thecal sac without spinal cord compression. Bilateral uncinate process hypertrophy is present. This produces moderate and mild narrowing of the right and left C5 neural foramina respectively. Posterior osteophytes are present at the C6-7 level. There is mild effacement of the thecal sac without spinal cord compression. Bilateral uncinate process hypertrophy is present. This produces minimal narrowing of the C6 neural foramina. A disc bulge is present at the T1-2 level. There is minimal effacement of the thecal sac without spinal cord compression. The T1 neural foramina are patent on sagittal images. A small central disc protrusion is present at the T3-4 level. There is minimal effacement of the thecal sac without spinal cord compression. The T3 neural foramina are patent on sagittal images. There is no other disc bulge or herniation. The remaining neural foramen are patent. The spinal cord is small in size at the C5-6 level. A small focus of increased signal intensity is present in the spinal cord. These findings are consistent with myelomalacia. The C4-5 through C6-7 intervertebral discs are decreased in height consistent with disc degeneration. Normal signal intensity is present in the cervical vertebral bodies. There is no subluxation. IMPRESSION: 1. The patient is status post C5 to 7 anterior spinal fusion. There is anatomic alignment of the cervical spine. 2. There is cervical spondylolisthesis at the C3-4 through C7-T1 levels, most significant at the C4-5 level where there is mild spinal cord compression. The disc protrusion at the C4-5 level is increased in size. The degree of spinal cord compression at this level has progressed. There is no other significant change. Signed by Mayito Major MD 05/06/2017 03:52 P
== END ==
LOC: M RAD 13:36
PROVIDERS: ATTEND Nurse Practitioner Family
DX: M50.20 Other cervical disc displacement, unspecified cervical region (principal); Z98.1 Arthrodesis status; M43.12 Spondylolisthesis, cervical region; M48.02 Spinal stenosis, cervical region

== ENCOUNTER → 2017-05-14 | Outpatient (CLI) | payer OTHER, MEDICAID ==
--- NOTE | 2017-06-01 23:20 | ECWPNPC ---
PATIENT NAME: FEDERICO MCFARLAND : 1965 GENDER: FEMALE VISIT DATE: 05/14/2017 DISCHARGE DATE: 05/14/17 1407 VISIT LOCKED DATE TIME: PHYSICIAN: SHANDA TSANG RESOURCE: SHANDA TSANG REASON FOR APPOINTMENT 1. BACK HISTORY OF PRESENT ILLNESS HISTORY OF PRESENT ILLNESS: PAIN THE PATIENT DESCRIBES THE PAIN... FALL RISK SCREENING: SCREENING :NO FALLS IN THE PAST YEAR TODAY'S VISIT: NOTES: RATES PAIN TODAY 8/10, PAIN ICENTERED AT BASE OF NECK AND DRADIATES UP OVER THE BACK OF THE HEAD AND ALL THE WAY DOWN SPINE . GENERALLY DOES NOT FEEL WELL. CURRENT MEDICATIONS TAKING XANAX 1 MG TABLET 1 TABLET ORALLY TID, NOTES: 04/05/17 AT 0800 TAKING CLARITIN 10 MG TABLET 1 TABLET ORALLY ONCE A DAY TAKING OMEPRAZOLE 40 MG CAPSULE DELAYED RELEASE 1 CAPSULE ORALLY BID TAKING OYSTER SHELL CALCIUM 625 MG TABLET ORALLY BID TAKING PAXIL 40 MG TABLET 1 TABLET IN THE MORNING ORALLY ONCE A DAY TAKING BUSPAR 15 MG TABLET ORALLY BID TAKING GABAPENTIN 400 MG CAPSULE 1 CAPSULE ORALLY BID, NOTES: 04/05/17 AT 0800 TAKING TRAZODONE HCL 150 MG TABLET 1 TABLET AT BEDTIME NEEDED ORALLY ONCE A DAY TAKING ZOCOR 40 MG TABLET 1 TABLET IN THE EVENING ORALLY ONCE A DAY TAKING PHENERGAN 25 MG TABLET 1 TABLET ORALLY Q 8 HRS PRN NAUSEA TAKING SOMA 350 MG TABLET 1 TABLET NEEDED ORALLY BID TAKING OXYCODONE HCL 5 MG TABLET 1 TABLET ORALLY EVERY 8-12 HOURS PRN PAIN MDD=2 NOT-TAKING TIZANIDINE HCL 4 MG TABLET 1/2 -1 TABLET ORALLY EVERY 8 HRS NOT-TAKING PROMETHAZINE HCL 25 MG TABLET 1 TABLET NEEDED ORALLY EVERY 12 HRS NOT-TAKING SLEEP AID 50 MG CAPSULE 1 CAPSULE AT BEDTIME ORALLY ONCE A DAY MEDICATION LIST REVIEWED AND RECONCILED WITH THE PATIENT ALLERGIES CODEINE SULFATE: RASH: ALLERGY PENICILLIN (FOR ALLERGIES USE ONLY): RASH: ALLERGY FENTANYL: NAUSEA/VOMITING: ALLERGY TRAMADOL: HEADACHE: ALLERGY QUINOLONES: N/V AND LEG CRAMPS: ALLERGY NSAIDS: ANAPHYLAXIS: ALLERGY VARENICLINE TARTRATE: NAUSEA: ALLERGY CYMBALTA: ANXIETY/ALT MENTAL STATUS: SIDE EFFECTS MORPHINE SULFATE: RASH NAUSEA: ALLERGY REVIEW OF SYSTEMS REVIEWED BY: PROVIDER: SHANDA TSANG ALTERATION TAILOR APPRENTICE . CONSTITUTIONAL: ANY CHANGE IN YOUR MEDICAL CONDITION? NO . CHILLS NO . FEVER NO . INFECTION: DO YOU HAVE NEW INFECTIONS? NO . DO YOU HAVE HISTORY OF MRSA? NO . MUSCULOSKELETAL: ANY NEW PATTERNS OF PAIN OR NUMBNESS? NO . GASTROENTEROLOGY: ANY NEW CHANGE IN BOWEL CONTROL? NO . GENITOURINARY: ANY NEW CHANGE IN BLADDER CONTROL? NO . IS THERE A CHANCE YOU COULD BE ? NO . HEMATOLOGY/LYMPH: DO YOU TAKE ANY BLOOD THINNERS? (FOR EXAMPLE- COUMADIN, PLAVIX, AGGRENOX, PLATEL, PRADAXA, OR XARELTO) NO . WHEN WAS YOUR LAST DOSE? DATE: TIME: . NEUROLOGY: HAVE YOU FALLEN IN THE PAST 6 MONTHS? NO . ANY NEW EXTREMITY NUMBNESS OR WEAKNESS? NO . CARDIOLOGY: DO YOU HAVE A PACEMAKER OR DEFIBRILLATOR? NO . RESPIRATORY: HAVE YOU BEEN SICK IN THE PAST WEEK? NO . FEVER NO . FLU LIKE SYMPTOMS? NO . COUGH NO . INTEGUMENTARY: DO YOU HAVE ANY RASHES OR OPEN SORES? NO . ALLERGIC/IMMUNO: ARE YOU ALLERGIC TO SHELLFISH OR IV DYE? NO . ANY NEW ALLERGIES? NO . PSYCHIATRIC: DO YOU HAVE THOUGHTS OF HURTING YOURSELF OR SOMEONE ELSE? NO . ARE YOU ABUSED, NEGLECTED, OR IN AN UNSAFE ENVIRONMENT? NO . ENDOCRINOLOGY: ARE YOU DIABETIC? NO . OTHER: DO YOU NEED ANY PRESCRIPTIONS? NO . IF YES, PLEASE LIST: ____ . ANY NEW PROBLEMS WITH YOUR MEDICATIONS? NO . WHEN DID YOU LAST EAT? ____ . WHEN DID YOU LAST DRINK? ____ . WHAT DID YOU LAST DRINK? ____ . NAME OF PERSON DRIVING YOU HOME? ____ . DO YOU HAVE ANY OTHER QUESTIONS OR CONCERNS NO . VITAL SIGNS WT 250.8 LBS, HT 68 IN, BMI 38.13 INDEX, BP 147/73 MM HG, HR 107 /MIN, RR 16 /MIN, TEMP 98.7 F, OXYGEN SAT % 95%, NA INITIALS AW 1325. EXAMINATION GENERAL EXAMINATION: PSYCHALERT , ORIENTED X 3 LESS ANXIOUS THAN AT LAST VISIT. LUNGS:CLEAR TO AUSCULTATION BILATERALLY.NO WHEEZES, RALES OR RHONCHI. HEART:HEART RATE REGULAR. MUSCULOSKELETAL:TENDER FROM BASE OF NECK TO SACRUM., WELL OVER ARMS. ABLE TO RISE EASILY TO STANDING POSITION. POSTURE UPRIGHT, GAIT NONANTALGIC. MUSCLE STRENGTH 5/5 DISTALLY AND PROXIMALLY IN UPPER AND LOWER EXTREMITIES. EXQUISITE TENDERENSS OVER BILATERAL TEMPLES, OCCIPITAL NOTCH REGION. NEUROLOGIC EXAM:EOM'S INTACT WITH FEW BEATS NYSTAGMUS WITH RIGHT GAZE. GAZE DISCONJUGATE WITH RIGHT GAZE. SPEACH NONDYSARTHRIC. TONGUE PROTRUDES AT MIDLINE. FINGER TO FINGER COORDINATION NONDYSMETRIC. NO ATAXIA. HYPERSENSITIVITY TO NECK, UPPER SHOULDERS TO LIGHT TOUCH.. ASSESSMENTS DISC DISPLACEMENT, CERVICAL - M50.20 (PRIMARY) CERVICAL RADICULOPATHY - M54.12 CERVICAL POST-LAMINECTOMY SYNDROME - M96.1 TREATMENT DISC DISPLACEMENT, CERVICAL REFILL OXYCODONE HCL TABLET, 5 MG, 1-2 TABLET, ORALLY, EVERY 6-8 HOURS PRN PAIN MDD=2, 30 DAY(S), 150, REFILLS 0 REFILL SOMA TABLET, 350 MG, 1 TABLET NEEDED, ORALLY, BID, 30 DAY(S), 60 TABLET, REFILLS 1 REFILL TRAZODONE HCL TABLET, 150 MG, 1 TABLET AT BEDTIME NEEDED, ORALLY, ONCE A DAY, 30 DAY(S), 30, REFILLS 2 NOTES: OK TO MOW LAWN WITH TRACTOR. CONSIDER FORWARD WITH BOTOX FOR MIGRAINE PREVENTION. CLINICAL NOTES: ISTOP REGISTRY REVIEWED AND DEMNOSTRATES COMPLLIANCE. BRINGS IN MEDICATIONS WHICH IS APPROPRIATE FOR WHAT WAS DISPENSED. RECENT URINE TOXICOLOGY REVIEWED. NO UNAUTHORIZED MEDICATIONS. NO ILLICIT SUBSTANCES AND PRESCRIBED MEDICATIONS WERE PRESENT. REFERRAL TO:JEREMY MCCARTNEY ([facility])NEUROSURGERY REASON:INCREASED CERVICAL CORD COMPRESSION AT C4-5 AND SPONDYLOLITHESIS PROCEDURE CODES FA211 ESTABILISHED PATIENT [facility] FACILITY CHARGE DISPOSITION & COMMUNICATION FOLLOW UP SCHED FOR BOTOX FOR MIGRAINE AND F/U EARLY JUN (REASON: NECK PAIN) ELECTRONICALLY SIGNED BY ARLIN DUARTE ON 06/01/2017 AT 04:03 PM EDT DISCLAIMER : THIS IS A VISIT SUMMARY EXTRACTED FROM THE [employer] CHART. IT IS NOT A COPY OF THE [employer] PROGRESS NOTE. MANI
== END ==
LOC: M PAIN 13:30
PROVIDERS: ATTEND Nurse Practitioner Family
DX: M96.1 Postlaminectomy syndrome, not elsewhere classified (principal); M50.20 Other cervical disc displacement, unspecified cervical region; M54.12 Radiculopathy, cervical region; Z88.5 Allergy status to narcotic agent; Z88.0 Allergy status to penicillin; Z88.6 Allergy status to analgesic agent; Z88.8 Allergy status to other drugs, medicaments and biological substances; Z79.891 Long term (current) use of opiate analgesic; Z79.899 Other long term (current) drug therapy

== ENCOUNTER → 2017-06-11 | Outpatient (CLI) | payer MEDICAID, OTHER ==
[~2017-06-11] MED LIST changes: +BOTULINUM INJ 100 UNITS (J0585) IM ONE; +BUSP15TA47 PO; +CARI350T PO; +GABA-283 PO; +OXYC-403 PO; +diazePAM 5 MG TAB As Ordered ONE; +oxyCODONE 5MG TAB As Ordered ONE
--- NOTE | 2017-06-12 01:06 | ECWPNPC ---
PATIENT NAME: FEDERICO MCFARLAND : 1965 GENDER: FEMALE VISIT DATE: 06/11/2017 DISCHARGE DATE: 06/11/17 1541 VISIT LOCKED DATE TIME: PHYSICIAN: SOUMYA KRISHNA RESOURCE: SOUMYA KRISHNA REASON FOR APPOINTMENT 1. BOTOX HISTORY OF PRESENT ILLNESS HISTORY OF PRESENT ILLNESS: PAIN THE PATIENT DESCRIBES THE PAIN... FALL RISK SCREENING: SCREENING :NO FALLS IN THE PAST YEAR CURRENT MEDICATIONS TAKING XANAX 1 MG TABLET 1 TABLET ORALLY TID, NOTES: 06/11/17 1340 TAKING CLARITIN 10 MG TABLET 1 TABLET ORALLY ONCE A DAY, NOTES: 06/10/17 08 TAKING OMEPRAZOLE 40 MG CAPSULE DELAYED RELEASE 1 CAPSULE ORALLY BID, NOTES: 06/10/171999 TAKING OYSTER SHELL CALCIUM 625 MG TABLET ORALLY BID, NOTES: 06/10/17 08 TAKING PAXIL 40 MG TABLET 1 TABLET IN THE MORNING ORALLY ONCE A DAY, NOTES: 06/10/17799 TAKING BUSPAR 15 MG TABLET ORALLY BID, NOTES: 06/10/171999 TAKING GABAPENTIN 400 MG CAPSULE 1 CAPSULE ORALLY BID, NOTES: 06/10/171999 TAKING ZOCOR 40 MG TABLET 1 TABLET IN THE EVENING ORALLY ONCE A DAY, NOTES: 06/10/171999 TAKING PHENERGAN 25 MG TABLET 1 TABLET ORALLY Q 8 HRS PRN NAUSEA, NOTES: 06/10/171999 TAKING SOMA 350 MG TABLET 1 TABLET NEEDED ORALLY BID, NOTES: 2 WEEKS AGO TAKING TRAZODONE HCL 150 MG TABLET 1 TABLET AT BEDTIME NEEDED ORALLY ONCE A DAY, NOTES: 06/10/171999 TAKING OXYCODONE HCL 5 MG TABLET 1-2 TABLET ORALLY 1-2 TAB Q6-8H PRN MDD5, NOTES: 06/10/171999 NOT-TAKING TIZANIDINE HCL 4 MG TABLET 1/2 -1 TABLET ORALLY EVERY 8 HRS NOT-TAKING PROMETHAZINE HCL 25 MG TABLET 1 TABLET NEEDED ORALLY EVERY 12 HRS NOT-TAKING SLEEP AID 50 MG CAPSULE 1 CAPSULE AT BEDTIME ORALLY ONCE A DAY MEDICATION LIST REVIEWED AND RECONCILED WITH THE PATIENT PAST MEDICAL HISTORY ANXIETY DEPRESSION GERD ENVIRONMENTAL ALLERGIES ALLERGIES CODEINE SULFATE: RASH: ALLERGY PENICILLIN (FOR ALLERGIES USE ONLY): RASH: ALLERGY FENTANYL: NAUSEA/VOMITING: ALLERGY TRAMADOL: HEADACHE: ALLERGY QUINOLONES: N/V AND LEG CRAMPS: ALLERGY NSAIDS: ANAPHYLAXIS: ALLERGY VARENICLINE TARTRATE: NAUSEA: ALLERGY CYMBALTA: ANXIETY/ALT MENTAL STATUS: SIDE EFFECTS MORPHINE SULFATE: RASH NAUSEA: ALLERGY SURGICAL HISTORY TUBAL LIGATION CHOLECYSTECTOMY BILAT CARPAL TUNNEL RELEASE CERVICAL DISCECTOMY 2016 REVIEW OF SYSTEMS REVIEWED BY: PROVIDER: SOUMYA KRISHNA MD . CONSTITUTIONAL: ANY CHANGE IN YOUR MEDICAL CONDITION? NO . CHILLS NO . FEVER NO . INFECTION: DO YOU HAVE NEW INFECTIONS? NO . DO YOU HAVE HISTORY OF MRSA? NO . MUSCULOSKELETAL: ANY NEW PATTERNS OF PAIN OR NUMBNESS? NO . GASTROENTEROLOGY: ANY NEW CHANGE IN BOWEL CONTROL? NO . GENITOURINARY: ANY NEW CHANGE IN BLADDER CONTROL? NO . IS THERE A CHANCE YOU COULD BE ? NO . HEMATOLOGY/LYMPH: DO YOU TAKE ANY BLOOD THINNERS? (FOR EXAMPLE- COUMADIN, PLAVIX, AGGRENOX, PLATEL, PRADAXA, OR XARELTO) NO . WHEN WAS YOUR LAST DOSE? DATE: TIME: . NEUROLOGY: HAVE YOU FALLEN IN THE PAST 6 MONTHS? NO . ANY NEW EXTREMITY NUMBNESS OR WEAKNESS? NO . CARDIOLOGY: DO YOU HAVE A PACEMAKER OR DEFIBRILLATOR? NO . RESPIRATORY: HAVE YOU BEEN SICK IN THE PAST WEEK? NO . FEVER NO . FLU LIKE SYMPTOMS? NO . COUGH NO . INTEGUMENTARY: DO YOU HAVE ANY RASHES OR OPEN SORES? NO . ALLERGIC/IMMUNO: ARE YOU ALLERGIC TO SHELLFISH OR IV DYE? NO . ANY NEW ALLERGIES? NO . PSYCHIATRIC: DO YOU HAVE THOUGHTS OF HURTING YOURSELF OR SOMEONE ELSE? NO . ARE YOU ABUSED, NEGLECTED, OR IN AN UNSAFE ENVIRONMENT? NO . ENDOCRINOLOGY: ARE YOU DIABETIC? NO . OTHER: DO YOU NEED ANY PRESCRIPTIONS? NO . IF YES, PLEASE LIST: ____ . ANY NEW PROBLEMS WITH YOUR MEDICATIONS? NO . WHEN DID YOU LAST EAT? 02-07-17 EVENING . WHEN DID YOU LAST DRINK? 06-11-17 1100 . WHAT DID YOU LAST DRINK? SPRITE . NAME OF PERSON DRIVING YOU HOME? SISTER- NICOLETTE . DO YOU HAVE ANY OTHER QUESTIONS OR CONCERNS NO . VITAL SIGNS WT 254.8 LBS, HT 68 IN, BMI 38.74 INDEX, BP 135/60 MM HG, HR 94 /MIN, RR 18 /MIN, TEMP 98.6 F, OXYGEN SAT % 96%, NA INITIALS CM 1338. ASSESSMENTS CHRONIC MIGRAINE WITHOUT AURA, NOT INTRACTABLE, WITHOUT STATUS MIGRAINOSUS - G43.709 (PRIMARY) PROCEDURES PN BOTOX INJECTIONS FIRST INJECTION PRE PROCEDURE DIAGNOSIS CHRONIC MIGRAINE HEADACHES POST PROCEDURE DIAGNOSIS CHRONIC MIGRAINE HEADACHES PROCEDURE BOTOX INJECTION AT THE HEAD AND SHOULDERS SURGEON DR. SOUMYA KRISHNA MANAGER OF FINANCIAL PLANNING NONE ANESTHESIA NONE PRE PROCEDURE NOTE THE PATIENT WITH HISTORY OF CHRONIC MIGRAINE HEADACHES. I EVALUATE THE PATIENT AND REVIEWED THE CHART. I WENT OVER THE RISKS, ALTERNATIVES, AND BENEFITS ASSOCIATED WITH THIS PROCEDURE. THE PATIENT WOULD LIKE TO PROCEED AND GIVE CONSENT TO PERFORMED THE PROCEDURE. THE PATIENT DENIES UNEXPLAINABLE WEIGHT LOSS, FEVER, CHILLS, OR NEW CHANGES IN URINARY OR BOWEL CONTROL. THE PATIENT EXPRESSED SUFFERING OF HEADACHES 30 DAYS OF THE MONTH. THESE HEADACHES LAST MORE THAN 4 HOURS PER DAY. THE PATIENT HAS USED THE MEDICATIONS LISTED IN THE CHART TO TREAT THE HEADACHES FOR MANY MONTHS AND THE HEADACHES PERSIST DESCRIBED ABOVE DESCRIPTION OF PROCEDURE THE PATIENTS WAS BROUGHT TO THE PROCEDURE ROOM AND PLACED IN THE SUPINE POSITION. I CHECKED LATERALITY AND THE AREAS WHERE THE PROCEDURE WAS GOING TO BE PERFORMED WITH THE PATIENT AND THE SUPPORTING STAFF AT THE MOMENT OF THE TIME OUT IN THE PROCEDURE ROOM. FOR THE PROCEDURE I USED A SOLUTION OF 5 UNITS OF BOTOX PER EACH 0.1 ML OF THE SOLUTION. I USED A 30-GAUGE NEEDLE TO INJECT THE SOLUTION AT THE SELECTED LOCATIONS. I INJECTED FIRST THE RIGHT AND LEFT STRINGS TEACHER MUSCLES. THE LANDMARK FOR BOTH INJECTIONS WAS APPROXIMATELY 1 CM ABOVE THE SUPERIOR MEDIAL EDGE OF THE EYEBROW. AFTER THESE TWO INJECTIONS, I INJECTED THE PROCERUS MUSCLE AT THE MIDLINE POINT BETWEEN THESE FIRST TWO INJECTIONS. THEN I PROCEEDED TO INJECT THE RIGHT AND LEFT FRONTALIS MUSCLE. TWO INJECTIONS WERE DONE IN EACH SIDE. THE FIRST INJECTION WAS DONE APPROXIMATELY 2 CM ABOVE THE FIRST INJECTION OF THE STRINGS TEACHER. THE SECOND INJECTION WAS DONE APPROXIMATELY 1.5 CM LATERAL TO THIS FIST INJECTION OF THE FRONTALIS OF EACH SIDE. AFTER THE INJECTIONS OVER THE FOREHEAD WERE DONE, THE PATIENT'S HEAD WAS TURNED TO THE LEFT SIDE AND WE STARTED TO WORK WITH THE RIGHT TEMPORALIS MUSCLE. FIRST INJECTION WAS DONE IN A VERTICAL LINE OF THE TRAGUS APPROXIMATELY 3 CM ABOVE THE TRAGUS. THE SECOND INJECTION WAS DONE APPROXIMATELY 2 CM ABOVE THE FIRST INJECTION. THE THIRD INJECTION WAS DONE APPROXIMATELY 1 CM FRONT MOSER FROM THIS VERTICAL LINE CREATED AT THE LEVEL OF THE TRAGUS, INTERMEDIATE BETWEEN THESE TWO INJECTIONS. THE FOURTH INJECTION WAS DONE APPROXIMATELY 1.5 CM BACK FROM THE SECOND INJECTION TO THE TEMPORALIS IN LINE TO THE MIDPORTION OF THE EAR. THEN, WE PROCEEDED TO INJECT THE LEFT TEMPORALIS MUSCLE. WE CLEANED THE AREA WITH ALCOHOL AND PROCEEDED TO PERFORM THE SAME FOR INJECTIONS DESCRIBED ABOVE BUT IN THE LEFT TEMPORALIS MUSCLE USING THE SAME LANDMARKS. AFTER THESE INJECTIONS WERE DONE, THE PATIENT WAS SEATED. FIRST, WE STARTED TO INJECT THE LEFT AND RIGHT OCCIPITALIS MUSCLE. I INJECTED AT THE FOLLOWING PLACES IN THE RIGHT AND LEFT MUSCLE. THE FIRST INJECTION WAS DONE AT THE MIDPOINT POSITION BETWEEN THE MASTOID PROCESS AND THE INION OF THE OCCIPITAL PROTUBERANCE. THE SECOND INJECTION WAS DONE APPROXIMATELY 1.5 CM SUPERIOR AND LATERAL OF THIS POINT. THE THIRD INJECTION WAS DONE APPROXIMATELY 1.5 CM SUPERIOR AND MEDIAL TO THIS FIRST INJECTION. THEN, I PROCEEDED TO INJECT THE RIGHT AND LEFT PARASPINAL MUSCLES. LANDMARK OF THE INJECTION WERE APPROXIMATELY: FIRST INJECTION 3 CM BELOW THE INION AND 1 CM LATERAL TO THE MIDLINE AND SECOND INJECTION AT EACH SIDE WAS DONE APPROXIMATELY 1.5 CM SUPERIOR AND LATERAL OF THE FIRST INJECTION. THE LAST GROUP OF INJECTIONS WAS DONE OVER THE RIGHT AND LEFT TRAPEZIUS MUSCLE OVER THE SHOULDERS AREA. THE FIRST INJECTION WAS DONE AT THE MIDPOINT BETWEEN THE INFLECTION POINT BETWEEN THE NECK AND SHOULDER AND THE ACROMION. THE SECOND AND THIRD INJECTIONS WERE DONE APPROXIMATELY 2.5 CM LATERAL AND MEDIAL FROM THIS FIRST INJECTION. SAME TARGETS WERE USED IN THE RIGHT AND LEFT SIDE. IN TOTAL, I INJECTED 155 UNITS OF BOTOX. PROCEDURE WAS DONE WITHOUT EVIDENCE OF PARESTHESIA, PNEUMOTHORAX, OR ANY COMPLICATIONS. THE PATIENT TOLERATED THE PROCEDURE VERY WELL. THE PATIENT WAS SENT TO THE RECOVERY ROOM FOR OBSERVATIONS. INJECTIONS WERE DONE AFTER CLEANING WITH ALCOHOL, USING ASEPTIC TECHNIQUES POST PROCEDURE NOTE THE PROCEDURE DONE WAS DISCUSSED WITH THE PATIENT. THE PATIENT WILL BE SEEN IN A FOLLOW UP IN THE NEXT FEW WEEKS. INSTRUCTIONS WERE GIVEN, QUESTIONS WERE ANSWERED, AND THE PATIENT EXPRESSED UNDERSTANDING AND AGREES WITH THE PLAN. I, BELTRAN HUTCHISON, DOCUMENTED THE ABOVE INFORMATION ACTING A SCRIBE FOR DR. KRISHNA. I HAVE REVIEWED THE ABOVE DOCUMENT, WRITTEN BY BELTRAN YAÑEZ AND I VERIFY THAT IT IS ACCURATE. PROCEDURE CODES 98492 [facility] [facility] [place] & COMMUNICATION FOLLOW UP 3 WEEKS ELECTRONICALLY SIGNED BY SOUMYA KRISHNA MD ON 06/11/2017 AT 07:01 PM EDT DISCLAIMER : THIS IS A VISIT SUMMARY EXTRACTED FROM THE [employer] CHART. IT IS NOT A COPY OF THE [employer] PROGRESS NOTE. MTDD
== END ==
LOC: M PAIN 13:00
PROVIDERS: ATTEND Anesthesiology
DX: G43.709 Chronic migraine without aura, not intractable, without status migrainosus (principal); F41.9 Anxiety disorder, unspecified; F32.9 Major depressive disorder, single episode, unspecified; K21.9 Gastro-esophageal reflux disease without esophagitis; J30.2 Other seasonal allergic rhinitis; Z88.5 Allergy status to narcotic agent; Z88.0 Allergy status to penicillin; Z88.8 Allergy status to other drugs, medicaments and biological substances; Z88.6 Allergy status to analgesic agent; Z79.891 Long term (current) use of opiate analgesic; Z79.899 Other long term (current) drug therapy
CPT/HCPCS: 64615; J0585

== ENCOUNTER → 2017-07-17 | Outpatient (CLI) | payer OTHER, MEDICAID ==
[~2017-07-17] MED LIST changes: -BOTULINUM INJ 100 UNITS (J0585) IM ONE; -diazePAM 5 MG TAB As Ordered ONE; -oxyCODONE 5MG TAB As Ordered ONE
--- NOTE | 2017-07-17 23:53 | ECWPNPC ---
PATIENT NAME: FEDERICO MCFARLAND : 1965 GENDER: FEMALE VISIT DATE: 07/17/2017 DISCHARGE DATE: 07/17/17 1212 VISIT LOCKED DATE TIME: PHYSICIAN: SHANDA TSANG RESOURCE: SHANDA TSANG REASON FOR APPOINTMENT 1. POST BOTOX HISTORY OF PRESENT ILLNESS HISTORY OF PRESENT ILLNESS: PAIN THE PATIENT DESCRIBES THE PAIN... FALL RISK SCREENING: SCREENING :NO FALLS IN THE PAST YEAR TODAY'S VISIT: NOTES: RATES PAIN TODAY . IS S/P BOTOX FOR CHRONIC MIGRAINE COMPLETED ON 06/11/17. HAS HAD NO MIGRAINES SINCE THE INJECTION AND THE PRESSURE ACROSS THE SHOULDERS WAS RELIEVED AT 100% IMMED AND THIS HAS STAYED UNDER GOOD CONTROL. REPORTS THE EXPERIENCE WAS VERY PAINFUL AND SHE DOES NOT WANT O DO THIS AGAIN UNLESS THE HEADACHES RETURN EXTREMELY SEVERELY. . CURRENT MEDICATIONS TAKING PROMETHAZINE HCL 25 MG TABLET 1 TABLET NEEDED ORALLY EVERY 12 HRS TAKING XANAX 1 MG TABLET 1 TABLET ORALLY TID TAKING CLARITIN 10 MG TABLET 1 TABLET ORALLY ONCE A DAY TAKING OMEPRAZOLE 40 MG CAPSULE DELAYED RELEASE 1 CAPSULE ORALLY BID TAKING OYSTER SHELL CALCIUM 625 MG TABLET ORALLY BID TAKING PAXIL 40 MG TABLET 1 TABLET IN THE MORNING ORALLY ONCE A DAY TAKING BUSPAR 15 MG TABLET ORALLY BID TAKING GABAPENTIN 400 MG CAPSULE 1 CAPSULE ORALLY BID TAKING ZOCOR 40 MG TABLET 1 TABLET IN THE EVENING ORALLY ONCE A DAY TAKING PHENERGAN 25 MG TABLET 1 TABLET ORALLY Q 8 HRS PRN NAUSEA TAKING SOMA 350 MG TABLET 1 TABLET NEEDED ORALLY BID TAKING TRAZODONE HCL 150 MG TABLET 1 TABLET AT BEDTIME NEEDED ORALLY ONCE A DAY TAKING OXYCODONE HCL 5 MG TABLET 1-2 TABLET ORALLY 1-2 TAB Q6-8H PRN MDD5 TAKING SLEEP AID 50 MG CAPSULE 1 CAPSULE AT BEDTIME ORALLY ONCE A DAY DISCONTINUED TIZANIDINE HCL 4 MG TABLET 1/2 -1 TABLET ORALLY EVERY 8 HRS MEDICATION LIST REVIEWED AND RECONCILED WITH THE PATIENT PAST MEDICAL HISTORY ANXIETY DEPRESSION GERD ENVIRONMENTAL ALLERGIES ALLERGIES CODEINE SULFATE: RASH: ALLERGY PENICILLIN (FOR ALLERGIES USE ONLY): RASH: ALLERGY FENTANYL: NAUSEA/VOMITING: ALLERGY TRAMADOL: HEADACHE: ALLERGY QUINOLONES: N/V AND LEG CRAMPS: ALLERGY NSAIDS: ANAPHYLAXIS: ALLERGY VARENICLINE TARTRATE: NAUSEA: ALLERGY CYMBALTA: ANXIETY/ALT MENTAL STATUS: SIDE EFFECTS MORPHINE SULFATE: RASH NAUSEA: ALLERGY SOCIAL HISTORY GENERAL: TOBACCO USE ARE YOU A:CURRENT SMOKER ARE YOU INTERESTED IN QUITTING?THINKING ABOUT QUITTING COUNSELED THE PATIENT ON SMOKING CESSATION, EDUCATION [id number]/11/2017 PATIENT COUNSELED ON THE DANGERS OF TOBACCO USE AND URGED TO QUIT:07/17/2017 ALCOHOL SCREENING POINTS0 INTERPRETATIONNEGATIVE RECREATIONAL DRUG USE DRUG USE?NO CAFFEINE CAFFEINE USE?YES HOW OFTEN AND HOW MUCH? DAILY PAIN CLINIC PFS, CLERGY, PUBLIC HEALTH REFERRALS PFS REFERRAL NEEDED?NO CLERGY REFERRAL NEEDED?NO PUBLIC HEALTH REFERRAL NEEDED?NO WAS THE PROVIDER NOTIFIED OF ANY PERTINENT INFO?NO HAS THE PATIENT BEEN EDUCATED REGARDING HIS/HER PLAN OF CARE?YES HAS THE PATIENT BEEN EDUCATED REGARDING PAIN, THE RISK FOR PAIN, THE IMPORTANCE OF EFFECTIVE PAIN MANAGEMENT, AND THE PAIN ASSESSMENT PROCESS?YES PATIENT: ____. REVIEW OF SYSTEMS FOLLOW-UP ROS: GASTROENTEROLOGY: CONTINUES TO HAVE PERSISTANT NAUSEA, GI BLOATING AND DISCOMFORT. TO SEE DR MOORE . REVIEWED BY: PROVIDER: SHANDA GALAVIZ . CONSTITUTIONAL: ANY CHANGE IN YOUR MEDICAL CONDITION? NO . CHILLS NO . FEVER NO . INFECTION: DO YOU HAVE NEW INFECTIONS? NO - HAD RECENT INFLUENZA WITH HEADACHE(NOT MIGRAINE), FEVER, CHILLS AND BODY ACHES . DO YOU HAVE HISTORY OF MRSA? NO . MUSCULOSKELETAL: ANY NEW PATTERNS OF PAIN OR NUMBNESS? YES, BOTH FEET AND LOWER LEGS HAVE SWELLING. LEFT GREATER THAN RIGHT. . GASTROENTEROLOGY: ANY NEW CHANGE IN BOWEL CONTROL? NO . GENITOURINARY: ANY NEW CHANGE IN BLADDER CONTROL? NO . IS THERE A CHANCE YOU COULD BE ? NO . HEMATOLOGY/LYMPH: DO YOU TAKE ANY BLOOD THINNERS? (FOR EXAMPLE- COUMADIN, PLAVIX, AGGRENOX, PLATEL, PRADAXA, OR XARELTO) NO . WHEN WAS YOUR LAST DOSE? DATE: TIME: . NEUROLOGY: HAVE YOU FALLEN IN THE PAST 6 MONTHS? NO . ANY NEW EXTREMITY NUMBNESS OR WEAKNESS? NO . CARDIOLOGY: DO YOU HAVE A PACEMAKER OR DEFIBRILLATOR? NO . RESPIRATORY: HAVE YOU BEEN SICK IN THE PAST WEEK? YES, BAD COLD . FEVER NO . FLU LIKE SYMPTOMS? NO . COUGH NO . INTEGUMENTARY: DO YOU HAVE ANY RASHES OR OPEN SORES? NO . ALLERGIC/IMMUNO: ARE YOU ALLERGIC TO SHELLFISH OR IV DYE? NO . ANY NEW ALLERGIES? NO . PSYCHIATRIC: DO YOU HAVE THOUGHTS OF HURTING YOURSELF OR SOMEONE ELSE? NO . ARE YOU ABUSED, NEGLECTED, OR IN AN UNSAFE ENVIRONMENT? NO . ENDOCRINOLOGY: ARE YOU DIABETIC? NO . OTHER: DO YOU NEED ANY PRESCRIPTIONS? YES . IF YES, PLEASE LIST: GABAPENTIN, PROMETHAZINE, OXYCODONE . ANY NEW PROBLEMS WITH YOUR MEDICATIONS? NO . WHEN DID YOU LAST EAT? ____ . WHEN DID YOU LAST DRINK? ____ . WHAT DID YOU LAST DRINK? ____ . NAME OF PERSON DRIVING YOU HOME? ____ . DO YOU HAVE ANY OTHER QUESTIONS OR CONCERNS NO . VITAL SIGNS WT 252 LBS, HT 68 IN, BMI 38.31 INDEX, BP 143/65 MM HG, HR 91 /MIN, RR 18 /MIN, TEMP 97.7 F, OXYGEN SAT % 95%, NA INITIALS SC 11:34, REVIEWED BY: CM. EXAMINATION GENERAL EXAMINATION: PSYCHALERT , ORIENTED X 3 , APPROPRIATE MOOD AND AFFECT , GOOD EYE CONTACT, SMILING. LUNGS:CLEAR TO AUSCULTATION BILATERALLY. HEART:HEART RATE REGULAR. MUSCULOSKELETAL:FEW , TRIGGER POINTS AND TIGHT FIBROUS BANDS OVER TRAPEZIUS MUSCLES AND ALNG THE THORACIC AND LUMBAR PARAVERTEBRAL MUSCLES. IMPROVED NECK ROTATION, FLEXION AND EXTENSION, MUSCLE STRENGTH TESTING 5/5 BILATERAL UPPER AND LOWER ETREMITIES. EXTREMITIES:1+ BILATERAL LOWER EXTREMITY EDEMA. NEUROLOGIC EXAM:CN'S II-XII GROSSLY INTACT. EOM'S INTACT WITHOUT NYSTAGMUS. TONGUE PROTRUDES AT MIDLINE.. ASSESSMENTS CHRONIC MIGRAINE WITHOUT AURA, NOT INTRACTABLE, WITHOUT STATUS MIGRAINOSUS - G43.709 (PRIMARY) DISC DISPLACEMENT, CERVICAL - M50.20 (PRIMARY) CERVICAL RADICULOPATHY - M54.12 CERVICAL POST-LAMINECTOMY SYNDROME - M96.1 TREATMENT CHRONIC MIGRAINE WITHOUT AURA, NOT INTRACTABLE, WITHOUT STATUS MIGRAINOSUS REFILL GABAPENTIN CAPSULE, 400 MG, 1 CAPSULE, ORALLY, BID, 30 DAYS, 60, REFILLS 5 REFILL PHENERGAN TABLET, 25 MG, 1 TABLET, ORALLY, Q 8 HRS PRN NAUSEA, 30 DAYS, 30, REFILLS 0 REFILL OXYCODONE HCL TABLET, 5 MG, 1-2 TABLET, ORALLY, 1-2 TAB Q6-8H PRN MDD5, 30 DAY(S), 150, REFILLS 0 NOTES: FOLLOW UP WITH JORGE A BREWSTER FOR LEG SWELLING. NO FURTHER PHERGAN FROM OUR CLINIC - NEEDS TO GET FURTHER WORKUP FOR CHRONIC NAUSEAWALK EVERY DAYUSE PAIN MEDS INFREQUENTLY. CLINICAL NOTES: [employer] REGISTRY REVIEWED AND DEMNOSTRATES COMPLLIANCE. (REF # [id number]) BRINGS IN MEDICATIONS WHICH IS APPROPRIATE FOR WHAT WAS DISPENSED. RECENT URINE TOXICOLOGY REVIEWED. NO UNAUTHORIZED MEDICATIONS. NO ILLICIT SUBSTANCES AND PRESCRIBED MEDICATIONS WERE PRESENT. PROCEDURE CODES FA211 ESTABILISHED PATIENT [facility] FAC[facility] CHARGE DISPOSITION & COMMUNICATION FOLLOW UP 1 MONTHS (REASON: BACK/NECK/MIGRAINES) ELECTRONICALLY SIGNED BY ARLIN DUARTE ON 07/17/2017 AT 01:31 PM EDT DISCLAIMER : THIS IS A VISIT SUMMARY EXTRACTED FROM THE [employer] CHART. IT IS NOT A COPY OF THE [employer] PROGRESS NOTE. MAIN
== END ==
LOC: M PAIN 11:15
PROVIDERS: ATTEND Nurse Practitioner Family
DX: G43.709 Chronic migraine without aura, not intractable, without status migrainosus (principal); M50.20 Other cervical disc displacement, unspecified cervical region; M54.12 Radiculopathy, cervical region; M96.1 Postlaminectomy syndrome, not elsewhere classified; F41.9 Anxiety disorder, unspecified; F32.9 Major depressive disorder, single episode, unspecified; K21.9 Gastro-esophageal reflux disease without esophagitis; J30.89 Other allergic rhinitis; F17.200 Nicotine dependence, unspecified, uncomplicated; Z88.1 Allergy status to other antibiotic agents; Z88.0 Allergy status to penicillin; Z88.5 Allergy status to narcotic agent; Z88.8 Allergy status to other drugs, medicaments and biological substances; Z88.6 Allergy status to analgesic agent; Z79.891 Long term (current) use of opiate analgesic; Z79.899 Other long term (current) drug therapy

== ENCOUNTER → 2017-07-31 | Outpatient (REF) | payer OTHER ==
[2017-07-31 12:32] LABS: BASO % 0.6 % (0.0-1.0); EOS # 0.1 10^3/uL (0.0-0.50); EOS % 1.8 % (0.0-3.0); IMMATURE GRANULOCYTE % 0.1 % (0-0); LYMPH # 2.1 10^3/uL (1.5-4.5); LYMPH % 31.2 % (24.0-44.0); MEAN CORPUSCULAR HEMOGLOBIN 27.8 pg (27.0-33.0); MEAN CORPUSCULAR HGB CONC 31.5 g/dl (32.0-36.5); MEAN CORPUSCULAR VOLUME 88.4 fl (80.0-96.0); MONO # 0.4 10^3/uL (0.0-0.8); MONO % 5.1 % (0.0-5.0); NEUTROPHILS # 4.2 10^3/uL (1.8-7.7); NEUTROPHILS % 61.2 % (36.0-66.0); PLATELET COUNT, AUTOMATED 394 10^3/uL (150-450); RED CELL DISTRIBUTION WIDTH 15.9 % (11.5-14.5); WHITE BLOOD COUNT 6.8 10^3/uL (4.0-10.0)
[2017-07-31 13:20] LABS: ALBUMIN 3.8 GM/DL (3.2-5.2); ALBUMIN/GLOBULIN RATIO 1.19 (1.00-1.93); ALKALINE PHOSPHATASE 80 U/L (45-117); ALT/SGPT 23 U/L (12-78); ANION GAP 8 MEQ/L (8-16); AST/SGOT 15 U/L (15-37); BILIRUBIN,TOTAL 0.2 MG/DL (0.2-1.0); BLOOD UREA NITROGEN 8 MG/DL (7-18); CALCIUM LEVEL 8.6 MG/DL (8.5-10.1); CARBON DIOXIDE LEVEL 28 MEQ/L (21-32); CHLORIDE LEVEL 101 MEQ/L (98-107); CHOLESTEROL LEVEL 200 MG/DL (<200); CREATININE FOR GFR 0.68 MG/DL (0.55-1.02); GLOMERULAR FILTRATION RATE > 60.0 (>51); GLUCOSE, FASTING 120 MG/DL (70-105); POTASSIUM SERUM 4.2 MEQ/L (3.5-5.1); SODIUM LEVEL 137 MEQ/L (136-145); TRIGLYCERIDES LEVEL 438 MG/DL (<150)
== END ==
LOC: M LABDRWAD 12:03
PROVIDERS: ATTEND Physician Assistant Medical
DX: E78.2 Mixed hyperlipidemia (principal); F41.1 Generalized anxiety disorder; E55.9 Vitamin D deficiency, unspecified

== ENCOUNTER → 2017-09-17 | Outpatient (CLI) | payer OTHER, MEDICAID | LOC: M PAIN 10:30 | DX: G89.29 Other chronic pain (principal); G43.709 Chronic migraine without aura, not intractable, without status migrainosus; M50.20 Other cervical disc displacement, unspecified cervical region; F41.9 Anxiety disorder, unspecified; F32.9 Major depressive disorder, single episode, unspecified; K21.9 Gastro-esophageal reflux disease without esophagitis; J30.89 Other allergic rhinitis; F17.210 Nicotine dependence, cigarettes, uncomplicated; Z79.891 Long term (current) use of opiate analgesic; Z79.899 Other long term (current) drug therapy; Z88.0 Allergy status to penicillin; Z88.5 Allergy status to narcotic agent; Z88.1 Allergy status to other antibiotic agents; Z88.8 Allergy status to other drugs, medicaments and biological substances | CPT/HCPCS: G0463 ==

== ENCOUNTER → 2017-10-15 | Outpatient (REF) | payer OTHER | LOC: M LAB REF 19:03 | DX: R19.7 Diarrhea, unspecified (principal) ==

== ENCOUNTER 2017-10-18 11:58 | Day surgery (SDC) | payer OTHER ==
[2017-10-18] MEDS ORDERED: NS 1,000 ML IV (12:15)
[2017-10-18] MEDS ORDERED: LIDOCAINE 2% INJ 100 MG/5 ML SDV (FOR ANES.) As Ordered (12:49)
[2017-10-18] MEDS ORDERED: PROPOFOL 200 MG/20 ML VIAL As Ordered ×3 (12:49)
== END 2017-10-18 13:40 | disposition home or self-care (01) ==
LOC: M OPP 11:58
DX: R10.84 Generalized abdominal pain (principal); R19.7 Diarrhea, unspecified; K59.00 Constipation, unspecified; D12.3 Benign neoplasm of transverse colon; R11.0 Nausea; E78.5 Hyperlipidemia, unspecified; R00.2 Palpitations; K21.9 Gastro-esophageal reflux disease without esophagitis; R12 Heartburn; R06.02 Shortness of breath; M54.2 Cervicalgia; M54.89 Other dorsalgia; F41.9 Anxiety disorder, unspecified; G43.909 Migraine, unspecified, not intractable, without status migrainosus; G62.9 Polyneuropathy, unspecified; J44.9 Chronic obstructive pulmonary disease, unspecified; M79.1 Myalgia; F17.210 Nicotine dependence, cigarettes, uncomplicated; Z91.041 Radiographic dye allergy status; Z88.5 Allergy status to narcotic agent; Z88.8 Allergy status to other drugs, medicaments and biological substances; Z88.0 Allergy status to penicillin; Z79.899 Other long term (current) drug therapy; Z80.0 Family history of malignant neoplasm of digestive organs
CPT/HCPCS: 45385

== ENCOUNTER 2017-11-08 10:51 | Day surgery (SDC) | payer OTHER ==
[2017-11-08] MEDS: NS 1,000 ML IV (12:30)
[2017-11-08] MEDS ORDERED: PROPOFOL 200 MG/20 ML VIAL As Ordered ×2 (12:57→13:05)
== END 2017-11-08 14:10 | disposition home or self-care (01) ==
LOC: M OPP 10:51
DX: Z12.11 Encounter for screening for malignant neoplasm of colon (principal); Z86.010 Personal history of colon polyps; D12.5 Benign neoplasm of sigmoid colon; D12.3 Benign neoplasm of transverse colon; E78.5 Hyperlipidemia, unspecified; R00.2 Palpitations; R12 Heartburn; K21.9 Gastro-esophageal reflux disease without esophagitis; R06.02 Shortness of breath; M79.1 Myalgia; M54.2 Cervicalgia; M54.89 Other dorsalgia; M51.9 Unspecified thoracic, thoracolumbar and lumbosacral intervertebral disc disorder; F41.0 Panic disorder [episodic paroxysmal anxiety]; G43.909 Migraine, unspecified, not intractable, without status migrainosus; G62.9 Polyneuropathy, unspecified; J44.9 Chronic obstructive pulmonary disease, unspecified; F17.210 Nicotine dependence, cigarettes, uncomplicated; Z91.041 Radiographic dye allergy status; Z88.5 Allergy status to narcotic agent; Z88.8 Allergy status to other drugs, medicaments and biological substances; Z88.0 Allergy status to penicillin; Z79.899 Other long term (current) drug therapy; Z80.0 Family history of malignant neoplasm of digestive organs
CPT/HCPCS: 45385

== ENCOUNTER → 2017-12-02 | Outpatient (CLI) | payer OTHER, MEDICAID | LOC: M PAIN 09:30 | DX: G89.29 Other chronic pain (principal); G43.709 Chronic migraine without aura, not intractable, without status migrainosus; M50.20 Other cervical disc displacement, unspecified cervical region; M79.1 Myalgia; Z79.899 Other long term (current) drug therapy; F41.9 Anxiety disorder, unspecified; F32.9 Major depressive disorder, single episode, unspecified; K21.9 Gastro-esophageal reflux disease without esophagitis; J30.9 Allergic rhinitis, unspecified; F17.210 Nicotine dependence, cigarettes, uncomplicated; Z79.891 Long term (current) use of opiate analgesic; Z88.5 Allergy status to narcotic agent; Z88.1 Allergy status to other antibiotic agents; Z88.6 Allergy status to analgesic agent; Z88.8 Allergy status to other drugs, medicaments and biological substances | CPT/HCPCS: G0463 ==

== ENCOUNTER → 2018-02-03 | Outpatient (CLI) | payer OTHER, MEDICAID | LOC: M PAIN 10:45 | DX: G89.29 Other chronic pain (principal); G43.709 Chronic migraine without aura, not intractable, without status migrainosus; M50.20 Other cervical disc displacement, unspecified cervical region; M79.1 Myalgia; Z79.899 Other long term (current) drug therapy; F41.9 Anxiety disorder, unspecified; F32.9 Major depressive disorder, single episode, unspecified; K21.9 Gastro-esophageal reflux disease without esophagitis; J30.9 Allergic rhinitis, unspecified; F17.210 Nicotine dependence, cigarettes, uncomplicated; Z79.891 Long term (current) use of opiate analgesic; Z88.0 Allergy status to penicillin; Z88.5 Allergy status to narcotic agent; Z88.6 Allergy status to analgesic agent; Z88.1 Allergy status to other antibiotic agents | CPT/HCPCS: G0463 ==

== ENCOUNTER → 2018-03-17 | Outpatient (CLI) | payer OTHER, MEDICAID ==
[2018-03-17 17:13] LABS: TOTAL 25(OH) VITAMIN D 19.9 NG/ML (30.0-100.0)
[2018-03-17 17:14] LABS: ESTIMATED AVERAGE GLUCOSE 157 MG/DL (60-110); HEMOGLOBIN A1c 7.1 %
[2018-03-17 17:26] LABS: ALBUMIN/GLOBULIN RATIO 1.29 (1.00-1.93); ALKALINE PHOSPHATASE 87 U/L (45-117); ALT/SGPT 18 U/L (12-78); ANION GAP 8 MEQ/L (8-16); AST/SGOT 8 U/L (7-37); BILIRUBIN,TOTAL 0.2 MG/DL (0.2-1.0); BLOOD UREA NITROGEN 6 MG/DL (7-18); CALCIUM LEVEL 8.9 MG/DL (8.5-10.1); CARBON DIOXIDE LEVEL 25 MEQ/L (21-32); CHLORIDE LEVEL 105 MEQ/L (98-107); CHOLESTEROL LEVEL 283 MG/DL (<200); CHOLESTEROL RISK RATIO 7.256 (<5); CREATININE FOR GFR 0.77 MG/DL (0.55-1.30); GLOMERULAR FILTRATION RATE > 60.0 (>51); GLUCOSE, FASTING 98 MG/DL (70-100); HDL CHOLESTEROL 39 MG/DL (>40); IRON (FE) 39 UG/DL (50-170); LDL CHOLESTEROL 196.4 MG/DL (<100); NON-HDL-C 244 MG/DL; PERCENT SATURATION 7.5 % (13.2-45.0); SODIUM LEVEL 138 MEQ/L (136-145); TOTAL IRON BINDING CAPACITY 520 UG/DL (250-450); TOTAL PROTEIN 7.1 GM/DL (6.4-8.2); TRIGLYCERIDES LEVEL 238 MG/DL (<150)
[2018-03-17 18:46] LABS: HEMATOCRIT 36.2 % (36.0-47.0); HEMOGLOBIN 11.3 g/dl (12.0-15.5); MEAN CORPUSCULAR HEMOGLOBIN 26.6 pg (27.0-33.0); MEAN CORPUSCULAR HGB CONC 31.2 g/dl (32.0-36.5); MEAN CORPUSCULAR VOLUME 85.2 fl (80.0-96.0); PLATELET COUNT, AUTOMATED 377 10^3/uL (150-450); RED BLOOD COUNT 4.25 10^6/uL (4.00-5.40); RED CELL DISTRIBUTION WIDTH 16.6 % (11.5-14.5); WHITE BLOOD COUNT 7.9 10^3/uL (4.0-10.0)
== END ==
LOC: M ADAMS 15:28
DX: D64.9 Anemia, unspecified (principal); R53.83 Other fatigue; E03.9 Hypothyroidism, unspecified
CPT/HCPCS: 83550

== ENCOUNTER → 2018-04-24 | Outpatient (CLI) | payer OTHER, MEDICAID | LOC: M PAIN 14:15 | DX: G43.709 Chronic migraine without aura, not intractable, without status migrainosus (principal); M50.20 Other cervical disc displacement, unspecified cervical region; M79.1 Myalgia; Z79.899 Other long term (current) drug therapy; F41.9 Anxiety disorder, unspecified; F32.9 Major depressive disorder, single episode, unspecified; K21.9 Gastro-esophageal reflux disease without esophagitis; J30.9 Allergic rhinitis, unspecified; F17.210 Nicotine dependence, cigarettes, uncomplicated; Z79.891 Long term (current) use of opiate analgesic; Z88.5 Allergy status to narcotic agent; Z88.0 Allergy status to penicillin; Z88.8 Allergy status to other drugs, medicaments and biological substances; Z88.6 Allergy status to analgesic agent | CPT/HCPCS: G0463 ==

== ENCOUNTER → 2019-02-02 | Outpatient (CLI) | payer OTHER, MEDICAID ==
[~2019-02-02] MED LIST changes: +CARI1TAB7 PO; -CARI350T PO; -DULO30CA PO; +DULO30CA9 PO; -GABA-283 PO; +GABA-845 PO; -SIMV80TA PO; +SIMV80TA13 PO; +TRAZ1TAB14 PO; +[UNRECOGNIZED DRUG - CODE] OR; -[UNRECOGNIZED DRUG - OTHER] OR
[2019-02-02 14:07] LABS: HEMATOCRIT 39.1 % (36.0-47.0); HEMOGLOBIN 12.9 g/dl (12.0-15.5); MEAN CORPUSCULAR HEMOGLOBIN 30.6 pg (27.0-33.0); MEAN CORPUSCULAR VOLUME 92.7 fl (80.0-96.0); PLATELET COUNT, AUTOMATED 321 10^3/uL (150-450); RED BLOOD COUNT 4.22 10^6/uL (4.00-5.40); WHITE BLOOD COUNT 8.2 10^3/uL (4.0-10.0)
[2019-02-02 14:29] LABS: HEMOGLOBIN A1c 6.1 %
[2019-02-02 14:39] LABS: ALBUMIN 3.6 GM/DL (3.2-5.2); ALT/SGPT 19 U/L (12-78); BILIRUBIN,TOTAL 0.3 MG/DL (0.2-1.0); BLOOD UREA NITROGEN 10 MG/DL (7-18); CALCIUM LEVEL 8.3 MG/DL (8.5-10.1); CARBON DIOXIDE LEVEL 25 MEQ/L (21-32); CHLORIDE LEVEL 107 MEQ/L (98-107); CHOLESTEROL LEVEL 320 MG/DL (<200); CHOLESTEROL RISK RATIO 7.441 (<5); CREATININE FOR GFR 0.77 MG/DL (0.55-1.30); GLOMERULAR FILTRATION RATE > 60.0 (>51); GLUCOSE, FASTING 98 MG/DL (70-100); HDL CHOLESTEROL 43 MG/DL (>40); IRON (FE) 94 UG/DL (50-170); LDL CHOLESTEROL 231 MG/DL (<100); NON-HDL-C 277 MG/DL; PERCENT SATURATION 20.3 % (13.2-45.0); POTASSIUM SERUM 4.1 MEQ/L (3.5-5.1); SODIUM LEVEL 137 MEQ/L (136-145); TOTAL IRON BINDING CAPACITY 462 UG/DL (250-450); TOTAL PROTEIN 7.1 GM/DL (6.4-8.2); TRIGLYCERIDES LEVEL 232 MG/DL (<150)
[2019-02-02 14:41] LABS: TOTAL 25(OH) VITAMIN D 21.4 NG/ML (30.0-100.0); VITAMIN B12 LEVEL 363 PG/ML (247-911)
== END ==
LOC: M LAB 13:28
PROVIDERS: ATTEND Family Medicine
DX: D64.9 Anemia, unspecified (principal); R53.83 Other fatigue; E03.9 Hypothyroidism, unspecified

== ENCOUNTER → 2019-07-27 | Outpatient (REF) | payer OTHER ==
[~2019-07-27] MED LIST changes: +OMEP40CA97 PO
[2019-07-30 14:10] LABS: HPV HYBRID CAPTURE II Negative (Negative)
== END ==
LOC: M LAB REF 13:03
PROVIDERS: ATTEND Obstetrics & Gynecology
DX: Z12.4 Encounter for screening for malignant neoplasm of cervix (principal)

== ENCOUNTER → 2019-09-22 | Outpatient (REF) | payer OTHER, MEDICAID | LOC: M SFHCWAGY 17:59 | PROVIDERS: ATTEND Obstetrics & Gynecology | DX: N93.9 Abnormal uterine and vaginal bleeding, unspecified (principal); N84.0 Polyp of corpus uteri ==

== ENCOUNTER → 2019-10-29 | Outpatient (CLI) | payer OTHER ==
--- NOTE | 2019-10-30 03:29 | REP ---
Clinical: Abnormal uterine bleeding. Technique: Transabdominal pelvic ultrasound followed by transvaginal examination for better evaluation of the endometrium and adnexa with color Doppler evaluation of the ovaries. Findings: Bladder is normal and measures 7.4 x 7.6 x 5.0 cm. Heterogeneous retroverted uterus measures 7.9 x 4.6 x 4.8 cm. Endometrial complex measures 7.9 mm thickness with punctate calcification likely chronic and incidental. No significant focal uterine or endometrial abnormality identified. The bilateral ovaries are normal in vascularity without torsion. Right ovary measures 3.9 x 2.7 x 2.7 cm (RI 0.45) and includes 2.8 x 1.6 x 2.0 cm cyst. Left ovary measures 4.4 x 2.2 x 2.4 cm (RI 0.61) with small scattered echogenic foci possibly calcifications. No pelvic fluid or adnexal mass lesion. Impression: Right ovarian cyst. Otherwise relatively presumed insignificant and chronic changes. Electronically Signed by Alex Álvarez MD 10/30/2019 03:21 A
== END ==
LOC: M RAD 11:37
PROVIDERS: ATTEND Obstetrics & Gynecology
DX: N93.9 Abnormal uterine and vaginal bleeding, unspecified (principal)

== ENCOUNTER → 2019-11-25 | Outpatient (CLI) | payer OTHER ==
[~2019-11-25] MED LIST changes: +LORA5SOL12 PO; +SIMV10TA21 PO
[2019-11-25 12:18] LABS: HEMATOCRIT 35.2 % (36.0-47.0); HEMOGLOBIN 11.2 g/dl (12.0-15.5); MEAN CORPUSCULAR HEMOGLOBIN 28.2 pg (27.0-33.0); MEAN CORPUSCULAR HGB CONC 31.8 g/dl (32.0-36.5); MEAN CORPUSCULAR VOLUME 88.7 fl (80.0-96.0); PLATELET COUNT, AUTOMATED 327 10^3/uL (150-450); RED BLOOD COUNT 3.97 10^6/uL (4.00-5.40)
--- NOTE | 2019-11-25 12:24 | REP ---
Clinical: Preoperative assessment . Comparison: 02/27/2016 . Technique: PA and lateral. Findings: The mediastinum and cardiac silhouette are normal. The lung szymanski are clear and without acute consolidation, effusion, or pneumothorax. The skeletal structures are intact and normal. Impression: 1. No acute cardiopulmonary process. Electronically Signed by Alex Álvarez MD 11/25/2019 12:16 P
[2019-11-25 12:27] LABS: INR 1.08; PROTHROMBIN TIME 13.7 SECONDS (11.8-14.0)
[2019-11-25 12:39] LABS: HEMOGLOBIN A1c 6.1 %
[2019-11-25 12:57] LABS: ALBUMIN 3.4 GM/DL (3.2-5.2); ALT/SGPT 16 U/L (12-78); BILIRUBIN,TOTAL 0.3 MG/DL (0.2-1.0); BLOOD UREA NITROGEN 5 MG/DL (7-18); CALCIUM LEVEL 8.6 MG/DL (8.5-10.1); CARBON DIOXIDE LEVEL 29 MEQ/L (21-32); CHLORIDE LEVEL 106 MEQ/L (98-107); CHOLESTEROL LEVEL 237 MG/DL (<200); CHOLESTEROL RISK RATIO 5.266 (<5); CREATININE FOR GFR 0.76 MG/DL (0.55-1.30); GLOMERULAR FILTRATION RATE > 60.0 (>51); GLUCOSE, FASTING 130 MG/DL (70-100); HDL CHOLESTEROL 45 MG/DL (>40); LDL CHOLESTEROL 145 MG/DL (<100); NON-HDL-C 192 MG/DL; POTASSIUM SERUM 3.7 MEQ/L (3.5-5.1); SODIUM LEVEL 137 MEQ/L (136-145); TOTAL PROTEIN 6.7 GM/DL (6.4-8.2); TRIGLYCERIDES LEVEL 236 MG/DL (<150)
--- NOTE | 2019-11-26 22:00 | ECGEPIP ---
[facility] Test Date: 2019-11-25 Pat Name: FEDERICO MCFARLAND Department: Room: - Gender: Female Assistant Restaurant General Manager: NEHAL : 1965 Requested By: Radha Leone Order Number: [id number] Reading MD: Juan Daniel Lozano Measurements Intervals [place] Rate: 93 P: 68 GA: 168 QRS: 52 QRSD: 82 T: 61 QT: 342 QTc: 427 Interpretive Statements SINUS RHYTHM NONSPECIFIC ST & T-WAVE ABNORMALITY Decreased heart rate compared with 02/27/2016. Electronically Signed on 11-26-2019 22:00:02 EST by Juan Daniel Lozano
== END ==
LOC: M LAB 11:33
PROVIDERS: ATTEND Family Medicine
DX: Z01.818 Encounter for other preprocedural examination (principal); D64.9 Anemia, unspecified; K21.9 Gastro-esophageal reflux disease without esophagitis

== ENCOUNTER → 2020-03-06 | Outpatient (CLI) | payer OTHER ==
[~2020-03-06] MED LIST changes: +AMBI10TA PO; +CYCL-707 PO; +DIBU10OI TOP; +DIFL150T PO; +DOCU100C16 PO; +IBUP-1114 PO; +OXYC-1 PO; -OXYC15TA76 PO; +PERCOCET PO; +ROPI4TAB3 PO; +ZOFR8TAB24 PO
== END ==
LOC: M LABSMTC 10:53
PROVIDERS: ATTEND Anesthesiology
DX: Z01.818 Encounter for other preprocedural examination (principal); Z11.59 Encounter for screening for other viral diseases
CPT/HCPCS: C9803; U0003

== ENCOUNTER 2020-03-09 11:29 | Day surgery (SDC) | payer OTHER ==
[~2020-03-09] VITALS: Ht 175.3 cm; Wt 106.6 kg
[2020-03-09] VITALS (7 sets, daily range): BP systolic 129–147; BP diastolic 63–77
[~2020-03-09 11:29] MED LIST changes: -DIBU10OI TOP; -DIFL150T PO; -DOCU100C16 PO; +LIDOCAINE 1% MDV 20ML VIAL SQ PRN; +LIDOCAINE 2% 100MG/5ML SDV (FOR ANES.) As Ordered ONE; +LR 1,000 ML IV ONE; +MIDAZOLAM INJ 2MG/2ML VIAL (J2250 PER 1MG) As Ordered ONE; +ONDANSETRON 4MG/2ML VIAL As Ordered ONE; -PERCOCET PO; +ROCURONIUM BROMIDE 50 MG/5 ML VIAL As Ordered ONE; +SUGAMMADEX SODIUM 500 MG/5 ML VIAL (BRIDION) As Ordered ONE; +ceFAZolin SOD 2 GM in IV 1 EA IV ONE; +dexameTHASONE 4 MG/ML 1ML VIAL (J1100 PER 1MG) As Ordered ONE; +fentaNYL 250 MCG/5 ML INJECTION (J3010) As Ordered ONE; +propofoL 200 MG/20 ML VIAL As Ordered ONE
[2020-03-09] MEDS ORDERED: BUPIVACAINE HCL 0.25% 30ML VIAL As Ordered ONE (12:02)
[2020-03-09] MEDS ORDERED: VASOPRESSIN INJ 20 UNITS/ML VIAL As Ordered ONE (12:02)
[2020-03-09] MEDS ORDERED: METHYLENE BLUE 0.5% (5MG/ML) 10 ML AMP (PROVAYBLUE)(Q9968 PER 1MG) As Ordered ONE (12:03)
[2020-03-09 12:13] LABS: HEMATOCRIT 35.7 % (36.0-47.0); HEMOGLOBIN 11.5 g/dl (12.0-15.5); MEAN CORPUSCULAR HEMOGLOBIN 27.6 pg (27.0-33.0); MEAN CORPUSCULAR HGB CONC 32.2 g/dl (32.0-36.5); MEAN CORPUSCULAR VOLUME 85.8 fl (80.0-96.0); PLATELET COUNT, AUTOMATED 381 10^3/uL (150-450); RED BLOOD COUNT 4.16 10^6/uL (4.00-5.40)
[2020-03-09] MEDS ORDERED: HYDROmorphone HCL 2 MG/ML 1ML VIAL (J1170) As Ordered ONE (12:50)
[2020-03-09] MEDS ORDERED: ACETAMINOPHEN 1000MG 100ML IV BTL (OFIRMEV) (J0131 PER 10MG) As Ordered ONE ×2 (13:13→15:26)
[2020-03-09] MEDS ORDERED: ROCURONIUM BROMIDE 50 MG/5 ML VIAL As Ordered ONE (13:39)
[2020-03-09] MEDS ORDERED: METOCLOPRAMIDE INJ 10MG/2ML VIAL (J2765 PER 1) As Ordered ONE (15:00)
[2020-03-09] MEDS ORDERED: LR 1,000 ML IV SCH ×2 (15:56→16:30)
[2020-03-09] MEDS ORDERED: CYCLOBENZAPRINE 10MG TABLET PO PRN (16:00)
[2020-03-09] MEDS ORDERED: ONDANSETRON 4MG/2ML VIAL IV PRN ×2 (16:00→16:30)
[2020-03-09] MEDS: KETOROLAC 30 MG/ML 1ML VIAL IV SCH ×2 (16:00→21:14)
[2020-03-09] MEDS: ALPRAZolam 0.5 MG TAB PO SCH ×2 (16:00→21:11)
[2020-03-09] MEDS ORDERED: PROMETHAZINE INJ 25 MG/ML VIAL (J2550) IV PRN (16:00)
[2020-03-09] MEDS ORDERED: oxyCODONE 5MG TAB PO PRN (16:30)
[2020-03-09] MEDS ORDERED: HYDROMORPHONE HCL 0.5 MG/ 0.5 ML SYRINGE (J1170 PER 1) IV PRN (16:30)
[2020-03-09] MEDS ORDERED: fentaNYL 100 MCG/2 ML INJECTION (J3010) IV PRN (16:30)
[2020-03-09] MEDS ORDERED: DOCU100C16 PO (16:50)
[2020-03-09] MEDS ORDERED: PERCOCET PO (16:50)
[2020-03-09] MEDS ORDERED: ALPRAZolam 0.5 MG TAB PO SCH (17:45)
[2020-03-09] MEDS: OMEPRAZOLE 20 MG CAP PO SCH (21:11)
[2020-03-09] MEDS: rOPINIRole 2MG TAB PO SCH (21:11)
[2020-03-09] MEDS: SIMVASTATIN 10 MG TAB PO SCH (21:12)
[2020-03-09] MEDS: zolPIDEM TARTRATE 5 MG TAB PO SCH (21:12)
[2020-03-09] MEDS: DOCUSATE SODIUM 100 MG CAP PO SCH (21:12)
[2020-03-09] MEDS: GABAPENTIN 400 MG CAP PO SCH (21:13)
[2020-03-09] MEDS: PERCOCET 5MG/325MG TAB PO PRN (23:58)
[2020-03-10] MEDS: KETOROLAC 30 MG/ML 1ML VIAL IV SCH ×2 (03:24→09:38)
[2020-03-10 04:00] VITALS: BP 113/56
[2020-03-10] MEDS: PERCOCET 5MG/325MG TAB PO PRN ×4 (04:19→21:06)
[2020-03-10 07:02] LABS: BASO % 0.3 % (0.0-1.0); EOS # 0.1 10^3/uL (0.0-0.5); EOS % 0.8 % (0.0-3.0); HEMATOCRIT 30.7 % (36.0-47.0); HEMOGLOBIN 9.6 g/dl (12.0-15.5); LYMPH # 3.3 10^3/uL (1.5-5.0); MEAN CORPUSCULAR HEMOGLOBIN 27.3 pg (27.0-33.0); MEAN CORPUSCULAR HGB CONC 31.3 g/dl (32.0-36.5); MEAN CORPUSCULAR VOLUME 87.2 fl (80.0-96.0); MONO # 0.6 10^3/uL (0.0-0.8); MONO % 5.8 % (0.0-5.0); NEUTROPHILS # 6.6 10^3/uL (1.5-8.5); NEUTROPHILS % 61.8 % (36.0-66.0); PLATELET COUNT, AUTOMATED 296 10^3/uL (150-450); RED BLOOD COUNT 3.52 10^6/uL (4.00-5.40); WHITE BLOOD COUNT 10.7 10^3/uL (4.0-10.0)
[2020-03-10 08:00] VITALS: BP 136/81
[2020-03-10] MEDS: GABAPENTIN 400 MG CAP PO SCH ×2 (08:38→20:35)
[2020-03-10] MEDS: DOCUSATE SODIUM 100 MG CAP PO SCH ×2 (08:38→20:36)
[2020-03-10] MEDS: PARoxetine 20 MG TAB PO SCH (08:39)
[2020-03-10] MEDS: ALPRAZolam 0.5 MG TAB PO SCH ×3 (08:40→20:35)
[2020-03-10] MEDS: OMEPRAZOLE 20 MG CAP PO SCH ×2 (08:41→20:34)
[2020-03-10] MEDS ORDERED: LORATADINE 10 MG TAB PO ONE (09:00)
[2020-03-10] MEDS ORDERED: rOPINIRole 2MG TAB PO ONE (13:00)
[2020-03-10] MEDS ORDERED: diphenhydrAMINE 50MG CAP PO ONE (13:00)
[2020-03-10 16:00] VITALS: BP 133/70
[2020-03-10] MEDS ORDERED: IBUPROFEN 800 MG TAB PO SCH (18:00)
[2020-03-10] MEDS ORDERED: diphenhydrAMINE 25MG CAP PO PRN (19:15)
[2020-03-10 20:00] VITALS: BP 140/67
[2020-03-10] MEDS: SIMVASTATIN 10 MG TAB PO SCH (20:34)
[2020-03-10] MEDS: zolPIDEM TARTRATE 5 MG TAB PO SCH (20:36)
[2020-03-10] MEDS: rOPINIRole 2MG TAB PO SCH (20:37)
[2020-03-10] MEDS: IBUPROFEN 800 MG TAB PO PRN (23:31)
[2020-03-11] VITALS: BP 160/84
[2020-03-11 01:00] VITALS: BP 145/76
[2020-03-11] MEDS ORDERED: IBUPROFEN 800 MG TAB PO PRN (02:00)
[2020-03-11] MEDS: PERCOCET 5MG/325MG TAB PO PRN ×3 (03:10→13:45)
[2020-03-11] MEDS ORDERED: SIMETHICONE 80 MG CHEW TAB PO PRN (03:15)
[2020-03-11 04:00] VITALS: BP 141/65
[2020-03-11 08:00] VITALS: BP 143/70
[2020-03-11] MEDS: ALPRAZolam 0.5 MG TAB PO SCH (09:00)
[2020-03-11] MEDS: GABAPENTIN 400 MG CAP PO SCH (09:00)
[2020-03-11] MEDS: PARoxetine 20 MG TAB PO SCH (09:00)
[2020-03-11] MEDS ORDERED: DOCUSATE SODIUM 100 MG CAP PO SCH (09:00)
[2020-03-11] MEDS: OMEPRAZOLE 20 MG CAP PO SCH (09:04)
[2020-03-11] MEDS: IBUPROFEN 800 MG TAB PO PRN (10:07)
[2020-03-11 15:00] VITALS: BP 137/78
[2020-03-14] MEDS ORDERED: DIBU10OI TOP (15:57)
[2020-03-14] MEDS ORDERED: DIFL150T PO (15:58)
== END 2020-03-11 15:05 | disposition home or self-care (01) ==
LOC: M SDC 11:29 → M PED 18:25 → M SDC 03-11 15:05
PROVIDERS: ATTEND Obstetrics & Gynecology
DX: N92.0 Excessive and frequent menstruation with regular cycle (principal); N81.6 Rectocele; R10.2 Pelvic and perineal pain; G43.909 Migraine, unspecified, not intractable, without status migrainosus; J44.9 Chronic obstructive pulmonary disease, unspecified; K21.9 Gastro-esophageal reflux disease without esophagitis; F32.9 Major depressive disorder, single episode, unspecified; F41.0 Panic disorder [episodic paroxysmal anxiety]; Z79.899 Other long term (current) drug therapy
CPT/HCPCS: 36415; 57250; 58571; 85025; 85027; 86850; 86900; 86901; 88302; 88307; 96374; 96376; J0131; J0690; J1100; J1170; J1885; J2250; J2405; J2765; J3010; Q9968

== ENCOUNTER → 2020-12-08 | Outpatient (CLI) | payer OTHER, MEDICAID ==
[~2020-12-08] MED LIST changes: +DIBU10OI TOP; +DIFL150T PO; +DOCU100C16 PO; -LIDOCAINE 1% MDV 20ML VIAL SQ PRN; -LIDOCAINE 2% 100MG/5ML SDV (FOR ANES.) As Ordered ONE; -LORA5SOL12 PO; +LORA5SOL44 PO; -LR 1,000 ML IV ONE; -MIDAZOLAM INJ 2MG/2ML VIAL (J2250 PER 1MG) As Ordered ONE; -ONDANSETRON 4MG/2ML VIAL As Ordered ONE; +PERCOCET PO; -ROCURONIUM BROMIDE 50 MG/5 ML VIAL As Ordered ONE; -SUGAMMADEX SODIUM 500 MG/5 ML VIAL (BRIDION) As Ordered ONE; -ceFAZolin SOD 2 GM in IV 1 EA IV ONE; -dexameTHASONE 4 MG/ML 1ML VIAL (J1100 PER 1MG) As Ordered ONE; -fentaNYL 250 MCG/5 ML INJECTION (J3010) As Ordered ONE; -propofoL 200 MG/20 ML VIAL As Ordered ONE
== END ==
LOC: M ADAMS 15:38
PROVIDERS: ATTEND Nurse Practitioner Family
DX: M79.644 Pain in right finger(s) (principal); Z53.8 Procedure and treatment not carried out for other reasons

== ENCOUNTER → 2021-05-02 | Outpatient (CLI) | payer OTHER ==
[~2021-05-02] MED LIST changes: -DIBU10OI TOP; +DIBU28OI2 TOP; +GABA-283 PO; -GABA-845 PO; +ISOVUE-370 76% 100ML VIAL As Ordered ONE; +OMEP40CA4 PO; -OMEP40CA97 PO
--- NOTE | 2021-05-03 08:42 | REP ---
INDICATION: NACROSIS OF FINGERS. COMPARISON: None. TECHNIQUE: Helical scanning is acquired following the intravenous injection of 100 mL of Isovue 370. 3 mm axial images re-formatted. Coronal and sagittal MPR images are generated. Cyst 3D surface rendered images of the right upper extremity arterial tree are provided. FINDINGS: The right upper extremity arterial tree is included beginning proximally at the distal subclavian artery. Proximal subclavian and innominate artery and arch are not included in the field of view. The subclavian arterial segment is widely patent. Right axillary artery is widely patent. The brachial artery is unremarkable in the upper arm. In the antecubital fossa, there is some irregularity and possible intraluminal filling defect in the brachial artery. Distal to the the distal to the elbow, the radial artery is quite small. I do not resolved radial artery opacification beyond the distal forearm level.. Ulnar artery is patent to the wrist. The carpal arches are not visualized well enough to comment on. There is some dorsal venous opacification in the wrist and forearm region. 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 The carpal arch and digital arteries are not resolved well enough to comment on by this study. Catheter angiography could be considered. <Electronically signed by Emmett Hardwick > 05/03/21 9828
== END ==
LOC: M RAD 18:00
PROVIDERS: ATTEND Nurse Practitioner Family
DX: I96 Gangrene, not elsewhere classified (principal); L08.9 Local infection of the skin and subcutaneous tissue, unspecified; R52 Pain, unspecified
CPT/HCPCS: 73206; Q9967

== ENCOUNTER → 2022-01-22 | Outpatient (CLI) | payer OTHER ==
[~2022-01-22] MED LIST changes: -ISOVUE-370 76% 100ML VIAL As Ordered ONE
[2022-01-22 17:33] LABS: HEMOGLOBIN 12.3 g/dl (12.0-15.5); MEAN CORPUSCULAR HEMOGLOBIN 28.3 pg (27.0-33.0); MEAN CORPUSCULAR HGB CONC 32.4 g/dl (32.0-36.5); MEAN CORPUSCULAR VOLUME 87.4 fl (80.0-96.0); PLATELET COUNT, AUTOMATED 403 10^3/uL (150-450); RED BLOOD COUNT 4.35 10^6/uL (4.00-5.40)
[2022-01-22 17:53] LABS: HEMOGLOBIN A1c 5.9 %
[2022-01-22 18:11] LABS: ALBUMIN 3.7 GM/DL (3.2-5.2); ALT/SGPT 25 U/L (12-78); BILIRUBIN,TOTAL 0.2 MG/DL (0.2-1.0); BLOOD UREA NITROGEN 9 MG/DL (7-18); CALCIUM LEVEL 9.2 MG/DL (8.5-10.1); CARBON DIOXIDE LEVEL 26 MEQ/L (21-32); CHLORIDE LEVEL 106 MEQ/L (98-107); CHOLESTEROL LEVEL 301 MG/DL (<200); CHOLESTEROL RISK RATIO 6.543 (<5); CREATININE FOR GFR 0.84 MG/DL (0.55-1.30); GLOMERULAR FILTRATION RATE > 60.0 (>51); GLUCOSE, FASTING 120 MG/DL (70-100); HDL CHOLESTEROL 46 MG/DL (>40); LDL CHOLESTEROL 185 MG/DL (<100); NON-HDL-C 255 MG/DL; POTASSIUM SERUM 4.4 MEQ/L (3.5-5.1); SODIUM LEVEL 137 MEQ/L (136-145); TOTAL 25(OH) VITAMIN D 30.2 NG/ML (30.0-100.0); TRIGLYCERIDES LEVEL 352 MG/DL (<150)
== END ==
LOC: M RAD 15:13
PROVIDERS: ATTEND Family Medicine
DX: J44.9 Chronic obstructive pulmonary disease, unspecified (principal); R53.83 Other fatigue; I10 Essential (primary) hypertension

== ENCOUNTER → 2022-04-30 | Outpatient (CLI) | payer OTHER | LOC: M WHC 12:44 | PROVIDERS: ATTEND Family Medicine | DX: M79.604 Pain in right leg (principal) ==

== ENCOUNTER 2023-01-06 15:45 | Inpatient (IN) | payer OTHER ==
[~2023-01-06] VITALS: Ht 175.3 cm; Wt 127.2 kg
[~2023-01-06 15:45] MED LIST changes: -OXYC-403 PO; +OXYC-673 PO
[2023-01-06] MEDS ORDERED: ONDANSETRON 4MG 2ML VIAL IV ONE (17:25)
[2023-01-06] MEDS ORDERED: HYDROMORPHONE HCL 0.5 MG/ 0.5 ML SYRINGE IV PRN ×2 (17:25→19:35)
[2023-01-06] MEDS ORDERED: NS 500 ML IV ONE (17:25)
[2023-01-06 18:15] LABS: BASO # 0.1 10^3/uL (0.0-0.2); BASO % 0.8 % (0.0-1.0); EOS # 0.3 10^3/uL (0.0-0.5); HEMATOCRIT 41.1 % (36.0-47.0); HEMOGLOBIN 13.1 g/dl (12.0-15.5); LYMPH # 3.8 10^3/uL (1.5-5.0); LYMPH % 36.3 % (24.0-44.0); MEAN CORPUSCULAR HEMOGLOBIN 28.4 pg (27.0-33.0); MEAN CORPUSCULAR HGB CONC 31.9 g/dl (32.0-36.5); MONO # 0.7 10^3/uL (0.0-0.8); MONO % 6.7 % (2.0-8.0); NEUTROPHILS # 5.6 10^3/uL (1.5-8.5); PLATELET COUNT, AUTOMATED 461 10^3/uL (150-450); RED BLOOD COUNT 4.62 10^6/uL (4.00-5.40); WHITE BLOOD COUNT 10.5 10^3/uL (4.0-10.0)
[2023-01-06 18:21] LABS: ERYTHROCYTE SEDIMENTATION RATE 60 mm/hr (0-30)
[2023-01-06] MEDS ORDERED: VANCOMYCIN HCL 2,000 MG in D5W 500 ML IV ONE (18:45)
[2023-01-06] MEDS ORDERED: VANCOMYCIN HCL 1,000 MG, VIAL MATE ADAPTER 1 EACH in NS 250 ML IV ONE ×6 (18:55)
[2023-01-06] MEDS ORDERED: POTA1TAB21 PO (19:34)
[2023-01-06] MEDS ORDERED: GABA-283 PO (19:34)
[2023-01-06] MEDS ORDERED: ERGO500029 PO (19:34)
[2023-01-06] MEDS ORDERED: OMEP40CA5 PO (19:34)
[2023-01-06] MEDS ORDERED: ALPR1TAB3 PO (19:34)
[2023-01-06] MEDS ORDERED: ONDA4TAB6 SL (19:34)
[2023-01-06] MEDS ORDERED: LORA-674 PO (19:34)
[2023-01-06] MEDS ORDERED: ACETAMINOPHEN TAB 650MG DOSE (2X325MG) PO PRN (19:35)
[2023-01-06] MEDS ORDERED: CYCL-707 PO (19:35)
[2023-01-06] MEDS ORDERED: NS 1,000 ML IV ONE (19:35)
[2023-01-06] MEDS ORDERED: VANCOMYCIN HCL 1,000 MG, VIAL MATE ADAPTER 1 EACH in NS 250 ML IV SCH (19:35)
[2023-01-06] MEDS ORDERED: OXYC1TAB23 PO (19:36)
[2023-01-06] MEDS ORDERED: ACET-1349 PO (19:37)
[2023-01-06] MEDS ORDERED: HOME MED LIST COMPLETE! XX SCH (19:40)
[2023-01-06] MEDS ORDERED: ISOVUE-370 76% 100ML VIAL As Ordered ONE (19:42)
[2023-01-06] MEDS ORDERED: NICOTINE POLACRILEX 2 MG GUM PO PRN (19:55)
[2023-01-06] MEDS: HYDROMORPHONE HCL 0.5 MG/ 0.5 ML SYRINGE IV PRN (20:47)
[2023-01-06] MEDS: OMEPRAZOLE 20MG CAP PO SCH (22:37)
[2023-01-06] MEDS: DOCUSATE SODIUM 100MG CAPSULE PO SCH (22:37)
[2023-01-06 23:09] VITALS: BP 181/92
[2023-01-07 00:07] VITALS: BP 168/76
[2023-01-07] MEDS: ONDANSETRON 4MG 2ML VIAL IV PRN ×3 (00:14→17:27)
[2023-01-07] MEDS: HYDROMORPHONE HCL 0.5 MG/ 0.5 ML SYRINGE IV PRN ×7 (00:15→20:53)
[2023-01-07 00:27] VITALS: BP 168/80
[2023-01-07] MEDS ORDERED: HYDROMORPHONE HCL 0.5 MG/ 0.5 ML SYRINGE IV ONE (01:20)
[2023-01-07] MEDS: ALPRAZolam 0.5 MG TAB PO PRN ×3 (01:33→17:39)
[2023-01-07 06:04] LABS: HEMOGLOBIN 11.5 g/dl (12.0-15.5); MEAN CORPUSCULAR HEMOGLOBIN 28.6 pg (27.0-33.0); MEAN CORPUSCULAR HGB CONC 31.9 g/dl (32.0-36.5); MEAN CORPUSCULAR VOLUME 89.6 fl (80.0-96.0); PLATELET COUNT, AUTOMATED 428 10^3/uL (150-450); RED BLOOD COUNT 4.02 10^6/uL (4.00-5.40); WHITE BLOOD COUNT 11.5 10^3/uL (4.0-10.0)
[2023-01-07 06:34] LABS: BLOOD UREA NITROGEN 9 MG/DL (9-23); CALCIUM LEVEL 8.8 MG/DL (8.5-10.1); CARBON DIOXIDE LEVEL 25 MMOL/L (20-31); CHLORIDE LEVEL 104 MMOL/L (98-107); CREATININE FOR GFR 0.77 MG/DL (0.55-1.30); GLOMERULAR FILTRATION RATE > 60.0 (>51); GLUCOSE, FASTING 103 MG/DL (60-100); MAGNESIUM LEVEL 1.7 MG/DL (1.8-2.4); POTASSIUM SERUM 4.4 MMOL/L (3.5-5.1); SODIUM LEVEL 136 MMOL/L (136-145)
[2023-01-07 06:47] VITALS: BP 168/80
[2023-01-07] MEDS: DOCUSATE SODIUM 100MG CAPSULE PO SCH ×2 (08:13→20:54)
[2023-01-07] MEDS: OMEPRAZOLE 20MG CAP PO SCH (08:13)
[2023-01-07] MEDS: GABAPENTIN 400MG CAP PO SCH ×2 (08:13→20:54)
[2023-01-07] MEDS: LORATADINE 10 MG TAB PO SCH (08:13)
[2023-01-07] MEDS: PARoxetine 20MG TABLET PO SCH (08:13)
[2023-01-07] MEDS: POTASSIUM CHLORIDE 10MEQ SR TABLET PO SCH (08:14)
[2023-01-07] MEDS: VANCOMYCIN HCL 750 MG, VIAL MATE ADAPTER 1 EACH in D5W 250 ML IV SCH ×2 (09:38→20:53)
[2023-01-07] MEDS ORDERED: CLOPIDOGREL 300 MG TAB (PLAVIX) PO STA (10:56)
[2023-01-07] MEDS ORDERED: ASPIRIN 81MG CHEW TABLET PO ONE (11:00)
[2023-01-07] MEDS: VANCOMYCIN HCL 500 MG in D5W MINI-BAG PLUS 100 ML IV SCH ×2 (11:22→21:43)
[2023-01-07] MEDS ORDERED: HEPARIN SOD (PORCINE) 5000UNITS/ML 1ML VIAL/SYRINGE IV PRN (12:25)
[2023-01-07] MEDS ORDERED: HEPARIN SOD (PORCINE) 5000UNITS/ML 1ML VIAL/SYRINGE IV ONE (13:10)
[2023-01-07 14:00] VITALS: BP 118/72
[2023-01-07] MEDS: LR 1,000 ML IV SCH ×3 (14:52→21:44)
[2023-01-07] MEDS: HEPARIN DRIP 25,000 UNITS in IV 1 EA IV SCH (15:06)
[2023-01-07 18:59] LABS: PROTHROMBIN TIME 13.4 SECONDS (12.5-14.5)
[2023-01-07 19:33] LABS: PARTIAL THROMBOPLASTIN TIME 145.4 SECONDS (24.8-34.2)
[2023-01-07 20:08] VITALS: BP 198/94
[2023-01-08] VITALS (9 sets, daily range): BP systolic 140–186; BP diastolic 66–90
[2023-01-08] MEDS: HYDROMORPHONE HCL 0.5 MG/ 0.5 ML SYRINGE IV PRN ×4 (00:23→20:10)
[2023-01-08] MEDS: ALPRAZolam 0.5 MG TAB PO PRN ×2 (00:27→10:09)
[2023-01-08] MEDS: LR 1,000 ML IV SCH ×2 (05:12→16:44)
[2023-01-08 07:10] LABS: BASO # 0.1 10^3/uL (0.0-0.2); BASO % 0.6 % (0.0-1.0); EOS # 0.3 10^3/uL (0.0-0.5); HEMATOCRIT 32.2 % (36.0-47.0); HEMOGLOBIN 10.1 g/dl (12.0-15.5); LYMPH % 35.4 % (24.0-44.0); MEAN CORPUSCULAR HEMOGLOBIN 28.3 pg (27.0-33.0); MEAN CORPUSCULAR HGB CONC 31.4 g/dl (32.0-36.5); MEAN CORPUSCULAR VOLUME 90.2 fl (80.0-96.0); MONO # 0.8 10^3/uL (0.0-0.8); MONO % 8.9 % (2.0-8.0); NEUTROPHILS # 4.5 10^3/uL (1.5-8.5); NEUTROPHILS % 51.9 % (36.0-66.0); PLATELET COUNT, AUTOMATED 338 10^3/uL (150-450); RED BLOOD COUNT 3.57 10^6/uL (4.00-5.40); WHITE BLOOD COUNT 8.6 10^3/uL (4.0-10.0)
[2023-01-08 07:44] LABS: ALBUMIN 3.1 G/DL (3.2-5.2); ALKALINE PHOSPHATASE 97 U/L (46-116); ALT/SGPT 10 U/L (7.0-40); AST/SGOT 10 U/L (<34); BILIRUBIN,TOTAL < 0.2 MG/DL (0.3-1.2); BLOOD UREA NITROGEN 7 MG/DL (9-23); CALCIUM LEVEL 8.5 MG/DL (8.5-10.1); CARBON DIOXIDE LEVEL 27 MMOL/L (20-31); CHLORIDE LEVEL 106 MMOL/L (98-107); CREATININE FOR GFR 0.66 MG/DL (0.55-1.30); GLOMERULAR FILTRATION RATE > 60.0 (>51); GLUCOSE, FASTING 117 MG/DL (60-100); POTASSIUM SERUM 4.2 MMOL/L (3.5-5.1); SODIUM LEVEL 137 MMOL/L (136-145); TOTAL PROTEIN 5.7 G/DL (5.7-8.2)
[2023-01-08] MEDS ORDERED: CLOPIDOGREL 75 MG TAB PO SCH (09:00)
[2023-01-08] MEDS ORDERED: ASPIRIN 81MG CHEW TABLET PO SCH (09:00)
[2023-01-08] MEDS: PARoxetine 20MG TABLET PO SCH (09:00)
[2023-01-08] MEDS ORDERED: FAMOTIDINE 20 MG TAB PO SCH (09:00)
[2023-01-08] MEDS: amLODIPine 5 MG TAB PO SCH (09:00)
[2023-01-08] MEDS: LORATADINE 10 MG TAB PO SCH (10:09)
[2023-01-08] MEDS: VANCOMYCIN HCL 750 MG, VIAL MATE ADAPTER 1 EACH in D5W 250 ML IV SCH (10:09)
[2023-01-08] MEDS: POTASSIUM CHLORIDE 10MEQ SR TABLET PO SCH (10:10)
[2023-01-08] MEDS: OMEPRAZOLE 20MG CAP PO SCH (10:10)
[2023-01-08] MEDS: DOCUSATE SODIUM 100MG CAPSULE PO SCH ×2 (10:11→20:08)
[2023-01-08] MEDS: GABAPENTIN 400MG CAP PO SCH ×2 (10:11→20:08)
[2023-01-08] MEDS: VANCOMYCIN HCL 500 MG in D5W MINI-BAG PLUS 100 ML IV SCH (11:39)
[2023-01-08] MEDS ORDERED: ISOVUE-300 61% 100ML VIAL As Ordered ONE (12:16)
[2023-01-08] MEDS ORDERED: MIDAZOLAM INJ 2MG/2ML VIAL As Ordered ONE ×2 (12:16→13:58)
[2023-01-08] MEDS ORDERED: LIDOCAINE 1% MDV 20ML VIAL As Ordered ONE (12:17)
[2023-01-08] MEDS ORDERED: HEPARIN 1,000UNITS/ML 10ML VIAL (FOR RADIOLOGY & DIALYSIS ONLY) As Ordered ONE (12:17)
[2023-01-08] MEDS ORDERED: ONDANSETRON 4MG 2ML VIAL As Ordered ONE ×2 (12:36→14:48)
[2023-01-08] MEDS ORDERED: fentaNYL 100 MCG/2 ML INJECTION As Ordered ONE ×3 (12:36→14:47)
[2023-01-08] MEDS ORDERED: ALTEPLASE 2MG/2ML VIAL As Ordered ONE ×2 (13:35→14:52)
[2023-01-08] MEDS ORDERED: NITROGLYCERIN IN D5W 25MG/250ML (100MCG/ML) As Ordered ONE (13:40)
[2023-01-08] MEDS ORDERED: VERAPAMIL 5MG/2ML VIAL As Ordered ONE (14:14)
[2023-01-08 16:19] LABS: HEMATOCRIT 29.3 % (36.0-47.0); HEMOGLOBIN 9.2 g/dl (12.0-15.5); MEAN CORPUSCULAR HEMOGLOBIN 28.6 pg (27.0-33.0); MEAN CORPUSCULAR HGB CONC 31.4 g/dl (32.0-36.5); PLATELET COUNT, AUTOMATED 323 10^3/uL (150-450); RED BLOOD COUNT 3.22 10^6/uL (4.00-5.40); WHITE BLOOD COUNT 8.5 10^3/uL (4.0-10.0)
[2023-01-08 16:22] LABS: CPK CREATINE PHOSPHOKINASE 46 U/L (34-145); INR 1.04; PROTHROMBIN TIME 13.8 SECONDS (12.5-14.5)
[2023-01-08 16:36] LABS: BLOOD UREA NITROGEN < 5 MG/DL (9-23); CALCIUM LEVEL 7.5 MG/DL (8.5-10.1); CARBON DIOXIDE LEVEL 27 MMOL/L (20-31); CHLORIDE LEVEL 108 MMOL/L (98-107); CREATININE FOR GFR 0.52 MG/DL (0.55-1.30); GLOMERULAR FILTRATION RATE > 60.0 (>51); MAGNESIUM LEVEL 1.5 MG/DL (1.8-2.4); SODIUM LEVEL 141 MMOL/L (136-145)
[2023-01-08] MEDS ORDERED: ASPIRIN 325 MG TAB PO ONE (16:40)
[2023-01-08] MEDS ORDERED: MAG SULF 1GM/100ML (MAG RUN) 1 GM in IV 1 EA IV ONE (16:45)
[2023-01-08 16:49] LABS: GLUCOSE, FASTING 101 MG/DL (60-100)
[2023-01-08] MEDS: HEPARIN DRIP 25,000 UNITS in IV 1 EA IV SCH (17:18)
[2023-01-08] MEDS: ceFAZolin SOD 1 GM in D5W MINI-BAG PLUS 50 ML IV SCH (18:55)
[2023-01-08] MEDS: LACTOBACILLUS ACIDOPHILUS CAP (BACID) PO SCH (18:55)
[2023-01-08] MEDS: MAGNESIUM OXIDE 400MG TAB (MAG-OX) PO SCH (20:09)
[2023-01-09] VITALS (21 sets, daily range): BP systolic 125–178; BP diastolic 58–76; O2SAT 92–98
[2023-01-09] MEDS: HYDROMORPHONE HCL 0.5 MG/ 0.5 ML SYRINGE IV PRN ×5 (00:20→18:27)
[2023-01-09] MEDS: ALPRAZolam 0.5 MG TAB PO PRN ×4 (00:21→22:14)
[2023-01-09] MEDS: LR 1,000 ML IV SCH ×5 (02:56→19:55)
[2023-01-09] MEDS: ceFAZolin SOD 1 GM in D5W MINI-BAG PLUS 50 ML IV SCH ×3 (02:56→18:26)
[2023-01-09] MEDS: HEPARIN DRIP 25,000 UNITS in IV 1 EA IV SCH ×2 (04:05→17:49)
[2023-01-09 06:00] LABS: BASO % 0.4 % (0.0-1.0); EOS # 0.2 10^3/uL (0.0-0.5); EOS % 2.4 % (0.0-3.0); HEMOGLOBIN 9.5 g/dl (12.0-15.5); LYMPH # 2.9 10^3/uL (1.5-5.0); LYMPH % 29.9 % (24.0-44.0); MEAN CORPUSCULAR HEMOGLOBIN 28.4 pg (27.0-33.0); MEAN CORPUSCULAR HGB CONC 31.7 g/dl (32.0-36.5); MEAN CORPUSCULAR VOLUME 89.8 fl (80.0-96.0); MONO # 0.7 10^3/uL (0.0-0.8); MONO % 7.7 % (2.0-8.0); NEUTROPHILS # 5.7 10^3/uL (1.5-8.5); NEUTROPHILS % 59.3 % (36.0-66.0); PLATELET COUNT, AUTOMATED 305 10^3/uL (150-450); RED BLOOD COUNT 3.34 10^6/uL (4.00-5.40); WHITE BLOOD COUNT 9.6 10^3/uL (4.0-10.0)
[2023-01-09 06:38] LABS: INR 0.99; PROTHROMBIN TIME 13.3 SECONDS (12.5-14.5)
[2023-01-09 06:40] LABS: PARTIAL THROMBOPLASTIN TIME 89.8 SECONDS (24.8-34.2)
[2023-01-09 07:04] LABS: ALBUMIN 3.1 G/DL (3.2-5.2); ALKALINE PHOSPHATASE 103 U/L (46-116); ALT/SGPT 17 U/L (7.0-40); AST/SGOT 26 U/L (<34); BILIRUBIN,TOTAL 0.3 MG/DL (0.3-1.2); BLOOD UREA NITROGEN < 5 MG/DL (9-23); CALCIUM LEVEL 8.4 MG/DL (8.5-10.1); CARBON DIOXIDE LEVEL 29 MMOL/L (20-31); CHLORIDE LEVEL 103 MMOL/L (98-107); CREATININE FOR GFR 0.65 MG/DL (0.55-1.30); GLOMERULAR FILTRATION RATE > 60.0 (>51); GLUCOSE, FASTING 98 MG/DL (60-100); POTASSIUM SERUM 4.3 MMOL/L (3.5-5.1); SODIUM LEVEL 138 MMOL/L (136-145); TOTAL PROTEIN 5.8 G/DL (5.7-8.2)
[2023-01-09] MEDS ORDERED: ISOVUE-370 76% 100ML VIAL As Ordered ONE (07:48)
[2023-01-09] MEDS: DOCUSATE SODIUM 100MG CAPSULE PO SCH ×2 (09:00→20:53)
[2023-01-09] MEDS: LACTOBACILLUS ACIDOPHILUS CAP (BACID) PO SCH ×2 (10:00→18:26)
[2023-01-09] MEDS: ASPIRIN 81MG ENTERIC TABLET PO SCH (10:01)
[2023-01-09] MEDS: PARoxetine 20MG TABLET PO SCH (10:02)
[2023-01-09] MEDS: OMEPRAZOLE 20MG CAP PO SCH (10:03)
[2023-01-09] MEDS: POTASSIUM CHLORIDE 10MEQ SR TABLET PO SCH (10:03)
[2023-01-09] MEDS: MAGNESIUM OXIDE 400MG TAB (MAG-OX) PO SCH ×3 (10:04→20:53)
[2023-01-09] MEDS: amLODIPine 5 MG TAB PO SCH (10:05)
[2023-01-09] MEDS: LORATADINE 10 MG TAB PO SCH (10:06)
[2023-01-09] MEDS: GABAPENTIN 400MG CAP PO SCH ×2 (10:06→20:53)
[2023-01-09 13:52] LABS: URIC ACID 4.5 MG/DL (3.1-7.8)
[2023-01-09] MEDS ORDERED: ROPI2TAB3 PO (14:49)
[2023-01-09] MEDS: NITROGLYCERIN 2% OINT 1 GM *U/D* PKT TOP SCH ×2 (15:08→20:54)
[2023-01-09] MEDS: PERCOCET 5MG/325MG TAB PO PRN ×2 (15:10→22:14)
[2023-01-09] MEDS: CYCLOBENZAPRINE 10MG TABLET PO PRN (22:14)
[2023-01-10] VITALS (18 sets, daily range): BP systolic 120–147; BP diastolic 60–77; O2SAT 86–98
[2023-01-10] MEDS: HYDROMORPHONE HCL 0.5 MG/ 0.5 ML SYRINGE IV PRN ×4 (01:05→21:07)
[2023-01-10] MEDS: ceFAZolin SOD 1 GM in D5W MINI-BAG PLUS 50 ML IV SCH ×3 (03:08→18:28)
[2023-01-10] MEDS: LR 1,000 ML IV SCH ×4 (06:00→18:28)
[2023-01-10 06:09] LABS: BASO % 0.3 % (0.0-1.0); EOS # 0.3 10^3/uL (0.0-0.5); EOS % 3.6 % (0.0-3.0); HEMATOCRIT 26.5 % (36.0-47.0); HEMOGLOBIN 8.2 g/dl (12.0-15.5); LYMPH # 2.9 10^3/uL (1.5-5.0); LYMPH % 32.3 % (24.0-44.0); MEAN CORPUSCULAR HEMOGLOBIN 28.3 pg (27.0-33.0); MEAN CORPUSCULAR HGB CONC 30.9 g/dl (32.0-36.5); MEAN CORPUSCULAR VOLUME 91.4 fl (80.0-96.0); MONO # 0.9 10^3/uL (0.0-0.8); NEUTROPHILS # 4.7 10^3/uL (1.5-8.5); NEUTROPHILS % 53.3 % (36.0-66.0); PLATELET COUNT, AUTOMATED 313 10^3/uL (150-450); WHITE BLOOD COUNT 8.9 10^3/uL (4.0-10.0)
[2023-01-10 06:29] LABS: ALKALINE PHOSPHATASE 97 U/L (46-116); ALT/SGPT 13 U/L (7.0-40); AST/SGOT 13 U/L (<34); BILIRUBIN,TOTAL 0.2 MG/DL (0.3-1.2); BLOOD UREA NITROGEN 6 MG/DL (9-23); CALCIUM LEVEL 8.3 MG/DL (8.5-10.1); CARBON DIOXIDE LEVEL 31 MMOL/L (20-31); CHLORIDE LEVEL 101 MMOL/L (98-107); CREATININE FOR GFR 0.71 MG/DL (0.55-1.30); GLOMERULAR FILTRATION RATE > 60.0 (>51); GLUCOSE, FASTING 133 MG/DL (60-100); MAGNESIUM LEVEL 1.9 MG/DL (1.8-2.4); POTASSIUM SERUM 4.2 MMOL/L (3.5-5.1); SODIUM LEVEL 137 MMOL/L (136-145); TOTAL PROTEIN 5.7 G/DL (5.7-8.2)
[2023-01-10] MEDS: POTASSIUM CHLORIDE 10MEQ SR TABLET PO SCH (08:19)
[2023-01-10] MEDS: MAGNESIUM OXIDE 400MG TAB (MAG-OX) PO SCH ×3 (08:21→21:05)
[2023-01-10] MEDS: NITROGLYCERIN 2% OINT 1 GM *U/D* PKT TOP SCH ×2 (08:21→21:06)
[2023-01-10] MEDS: LACTOBACILLUS ACIDOPHILUS CAP (BACID) PO SCH ×2 (08:21→18:29)
[2023-01-10] MEDS: ASPIRIN 81MG ENTERIC TABLET PO SCH (08:21)
[2023-01-10] MEDS: OMEPRAZOLE 20MG CAP PO SCH (08:21)
[2023-01-10] MEDS: amLODIPine 5 MG TAB PO SCH (08:22)
[2023-01-10] MEDS: GABAPENTIN 400MG CAP PO SCH ×2 (08:22→21:05)
[2023-01-10] MEDS: DOCUSATE SODIUM 100MG CAPSULE PO SCH ×2 (08:22→21:05)
[2023-01-10] MEDS: PARoxetine 20MG TABLET PO SCH (08:22)
[2023-01-10] MEDS: LORATADINE 10 MG TAB PO SCH (08:22)
[2023-01-10] MEDS: PERCOCET 5MG/325MG TAB PO PRN ×2 (08:34→18:29)
[2023-01-10] MEDS: ALPRAZolam 0.5 MG TAB PO PRN (08:35)
[2023-01-10] MEDS: HEPARIN DRIP 25,000 UNITS in IV 1 EA IV SCH (21:54)
[2023-01-11] VITALS (25 sets, daily range): BP systolic 114–150; BP diastolic 59–80; O2SAT 93–96
[2023-01-11] MEDS: PERCOCET 5MG/325MG TAB PO PRN ×4 (01:08→22:27)
[2023-01-11] MEDS: ceFAZolin SOD 1 GM in D5W MINI-BAG PLUS 50 ML IV SCH ×3 (01:08→16:17)
[2023-01-11] MEDS: ALPRAZolam 0.5 MG TAB PO PRN ×4 (01:08→22:26)
[2023-01-11] MEDS: LR 1,000 ML IV SCH ×4 (01:33→20:25)
[2023-01-11] MEDS: HYDROMORPHONE HCL 0.5 MG/ 0.5 ML SYRINGE IV PRN ×4 (03:23→20:25)
[2023-01-11 06:06] LABS: BASO # 0.1 10^3/uL (0.0-0.2); BASO % 0.5 % (0.0-1.0); EOS # 0.5 10^3/uL (0.0-0.5); EOS % 4.6 % (0.0-3.0); HEMATOCRIT 27.8 % (36.0-47.0); HEMOGLOBIN 8.6 g/dl (12.0-15.5); LYMPH % 28.6 % (24.0-44.0); MEAN CORPUSCULAR HEMOGLOBIN 28.2 pg (27.0-33.0); MEAN CORPUSCULAR HGB CONC 30.9 g/dl (32.0-36.5); MEAN CORPUSCULAR VOLUME 91.1 fl (80.0-96.0); MONO # 0.9 10^3/uL (0.0-0.8); MONO % 8.7 % (2.0-8.0); NEUTROPHILS # 5.9 10^3/uL (1.5-8.5); NEUTROPHILS % 57.1 % (36.0-66.0); PLATELET COUNT, AUTOMATED 334 10^3/uL (150-450); RED BLOOD COUNT 3.05 10^6/uL (4.00-5.40); WHITE BLOOD COUNT 10.3 10^3/uL (4.0-10.0)
[2023-01-11 06:35] LABS: ALKALINE PHOSPHATASE 94 U/L (46-116); ALT/SGPT 12 U/L (7.0-40); AST/SGOT 18 U/L (<34); BILIRUBIN,TOTAL 0.3 MG/DL (0.3-1.2); BLOOD UREA NITROGEN < 5 MG/DL (9-23); CALCIUM LEVEL 8.8 MG/DL (8.5-10.1); CARBON DIOXIDE LEVEL 30 MMOL/L (20-31); CHLORIDE LEVEL 99 MMOL/L (98-107); CREATININE FOR GFR 0.69 MG/DL (0.55-1.30); GLOMERULAR FILTRATION RATE > 60.0 (>51); GLUCOSE, FASTING 129 MG/DL (60-100); POTASSIUM SERUM 4.6 MMOL/L (3.5-5.1); SODIUM LEVEL 135 MMOL/L (136-145)
[2023-01-11] MEDS: OMEPRAZOLE 20MG CAP PO SCH (08:14)
[2023-01-11] MEDS: MAGNESIUM OXIDE 400MG TAB (MAG-OX) PO SCH ×3 (08:14→20:25)
[2023-01-11] MEDS: LORATADINE 10 MG TAB PO SCH (08:14)
[2023-01-11] MEDS: PARoxetine 20MG TABLET PO SCH (08:14)
[2023-01-11] MEDS: GABAPENTIN 400MG CAP PO SCH ×2 (08:15→20:25)
[2023-01-11] MEDS: POTASSIUM CHLORIDE 10MEQ SR TABLET PO SCH (08:15)
[2023-01-11] MEDS: LACTOBACILLUS ACIDOPHILUS CAP (BACID) PO SCH ×2 (08:15→16:18)
[2023-01-11] MEDS: DOCUSATE SODIUM 100MG CAPSULE PO SCH ×2 (08:16→20:25)
[2023-01-11] MEDS: ASPIRIN 81MG ENTERIC TABLET PO SCH (08:16)
[2023-01-11] MEDS: amLODIPine 5 MG TAB PO SCH (08:16)
[2023-01-11] MEDS: NITROGLYCERIN 2% OINT 1 GM *U/D* PKT TOP SCH ×2 (08:17→20:25)
[2023-01-11] MEDS: HEPARIN DRIP 25,000 UNITS in IV 1 EA IV SCH (10:04)
[2023-01-11] MEDS ORDERED: RAMELTEON 8 MG TAB (ROZEREM) PO PRN (15:40)
[2023-01-11] MEDS: APIXABAN 5 MG TAB (ELIQUIS) PO SCH (18:38)
[2023-01-11] MEDS: ONDANSETRON 4MG 2ML VIAL IV PRN (20:25)
[2023-01-12] VITALS (14 sets, daily range): BP systolic 135–210; BP diastolic 60–112; O2SAT 92–100
[2023-01-12] MEDS: HYDROMORPHONE HCL 0.5 MG/ 0.5 ML SYRINGE IV PRN ×4 (01:29→17:23)
[2023-01-12] MEDS: ceFAZolin SOD 1 GM in D5W MINI-BAG PLUS 50 ML IV SCH ×3 (02:30→17:22)
[2023-01-12] MEDS: LR 1,000 ML IV SCH (05:30)
[2023-01-12 06:23] LABS: BASO # 0.1 10^3/uL (0.0-0.2); BASO % 0.5 % (0.0-1.0); EOS # 0.4 10^3/uL (0.0-0.5); EOS % 3.7 % (0.0-3.0); HEMATOCRIT 30.7 % (36.0-47.0); HEMOGLOBIN 9.4 g/dl (12.0-15.5); LYMPH # 2.2 10^3/uL (1.5-5.0); LYMPH % 18.9 % (24.0-44.0); MEAN CORPUSCULAR HEMOGLOBIN 28.3 pg (27.0-33.0); MEAN CORPUSCULAR HGB CONC 30.6 g/dl (32.0-36.5); MEAN CORPUSCULAR VOLUME 92.5 fl (80.0-96.0); MONO # 1.3 10^3/uL (0.0-0.8); MONO % 11.1 % (2.0-8.0); NEUTROPHILS # 7.5 10^3/uL (1.5-8.5); NEUTROPHILS % 65.3 % (36.0-66.0); PLATELET COUNT, AUTOMATED 377 10^3/uL (150-450); RED BLOOD COUNT 3.32 10^6/uL (4.00-5.40); WHITE BLOOD COUNT 11.5 10^3/uL (4.0-10.0)
[2023-01-12 06:55] LABS: ALBUMIN 3.3 G/DL (3.2-5.2); ALKALINE PHOSPHATASE 103 U/L (46-116); ALT/SGPT 15 U/L (7.0-40); AST/SGOT 19 U/L (<34); BILIRUBIN,TOTAL 0.4 MG/DL (0.3-1.2); BLOOD UREA NITROGEN 6 MG/DL (9-23); CALCIUM LEVEL 9.5 MG/DL (8.5-10.1); CARBON DIOXIDE LEVEL 32 MMOL/L (20-31); CHLORIDE LEVEL 95 MMOL/L (98-107); CREATININE FOR GFR 0.72 MG/DL (0.55-1.30); GLOMERULAR FILTRATION RATE > 60.0 (>51); GLUCOSE, FASTING 108 MG/DL (60-100); POTASSIUM SERUM 4.7 MMOL/L (3.5-5.1); SODIUM LEVEL 134 MMOL/L (136-145); TOTAL PROTEIN 6.7 G/DL (5.7-8.2)
[2023-01-12] MEDS: ALPRAZolam 0.5 MG TAB PO PRN (07:00)
[2023-01-12] MEDS: DOCUSATE SODIUM 100MG CAPSULE PO SCH ×2 (08:31→20:30)
[2023-01-12] MEDS: ASPIRIN 81MG ENTERIC TABLET PO SCH (08:31)
[2023-01-12] MEDS: NITROGLYCERIN 2% OINT 1 GM *U/D* PKT TOP SCH ×2 (08:31→20:30)
[2023-01-12] MEDS: PARoxetine 20MG TABLET PO SCH (08:31)
[2023-01-12] MEDS: amLODIPine 5 MG TAB PO SCH (08:32)
[2023-01-12] MEDS: LACTOBACILLUS ACIDOPHILUS CAP (BACID) PO SCH ×2 (08:32→17:22)
[2023-01-12] MEDS: APIXABAN 5 MG TAB (ELIQUIS) PO SCH ×2 (08:32→20:31)
[2023-01-12] MEDS: OMEPRAZOLE 20MG CAP PO SCH (08:32)
[2023-01-12] MEDS: POTASSIUM CHLORIDE 10MEQ SR TABLET PO SCH (08:32)
[2023-01-12] MEDS: GABAPENTIN 400MG CAP PO SCH ×2 (08:32→20:30)
[2023-01-12] MEDS: LORATADINE 10 MG TAB PO SCH (08:32)
[2023-01-12] MEDS: MAGNESIUM OXIDE 400MG TAB (MAG-OX) PO SCH ×3 (08:33→20:30)
[2023-01-12] MEDS: PERCOCET 5MG/325MG TAB PO PRN ×3 (08:34→20:32)
[2023-01-12] MEDS: ONDANSETRON 4MG 2ML VIAL IV PRN (08:46)
[2023-01-12] MEDS ORDERED: FUROSEMIDE 100MG/10ML VIAL IV ONE (09:35)
[2023-01-12] MEDS ORDERED: diphenhydrAMINE 25MG CAP PO PRN (09:35)
[2023-01-12] MEDS: RAMELTEON 8 MG TAB (ROZEREM) PO SCH (20:30)
[2023-01-13] MEDS: ceFAZolin SOD 1 GM in D5W MINI-BAG PLUS 50 ML IV SCH ×3 (02:23→17:34)
[2023-01-13] MEDS: PERCOCET 5MG/325MG TAB PO PRN ×4 (02:25→20:55)
[2023-01-13 03:10] VITALS: BP 127/57
[2023-01-13 05:42] LABS: BASO % 0.4 % (0.0-1.0); EOS # 0.4 10^3/uL (0.0-0.5); EOS % 3.8 % (0.0-3.0); HEMATOCRIT 27.6 % (36.0-47.0); HEMOGLOBIN 8.6 g/dl (12.0-15.5); LYMPH # 1.8 10^3/uL (1.5-5.0); LYMPH % 18.3 % (24.0-44.0); MEAN CORPUSCULAR HEMOGLOBIN 28.3 pg (27.0-33.0); MEAN CORPUSCULAR HGB CONC 31.2 g/dl (32.0-36.5); MEAN CORPUSCULAR VOLUME 90.8 fl (80.0-96.0); MONO # 0.9 10^3/uL (0.0-0.8); MONO % 9.5 % (2.0-8.0); NEUTROPHILS # 6.5 10^3/uL (1.5-8.5); NEUTROPHILS % 67.7 % (36.0-66.0); PLATELET COUNT, AUTOMATED 355 10^3/uL (150-450); RED BLOOD COUNT 3.04 10^6/uL (4.00-5.40); WHITE BLOOD COUNT 9.6 10^3/uL (4.0-10.0)
[2023-01-13] MEDS: HYDROMORPHONE HCL 0.5 MG/ 0.5 ML SYRINGE IV PRN (06:01)
[2023-01-13 06:06] LABS: ALBUMIN 2.8 G/DL (3.2-5.2); ALKALINE PHOSPHATASE 92 U/L (46-116); ALT/SGPT 12 U/L (7.0-40); AST/SGOT 13 U/L (<34); BILIRUBIN,TOTAL 0.5 MG/DL (0.3-1.2); BLOOD UREA NITROGEN 8 MG/DL (9-23); CALCIUM LEVEL 8.9 MG/DL (8.5-10.1); CARBON DIOXIDE LEVEL 32 MMOL/L (20-31); CHLORIDE LEVEL 99 MMOL/L (98-107); GLOMERULAR FILTRATION RATE > 60.0 (>51); GLUCOSE, FASTING 132 MG/DL (60-100); POTASSIUM SERUM 4.4 MMOL/L (3.5-5.1); SODIUM LEVEL 137 MMOL/L (136-145); TOTAL PROTEIN 5.9 G/DL (5.7-8.2)
[2023-01-13 08:05] VITALS: BP 134/61
[2023-01-13] MEDS: APIXABAN 5 MG TAB (ELIQUIS) PO SCH ×2 (09:10→20:56)
[2023-01-13] MEDS: POTASSIUM CHLORIDE 10MEQ SR TABLET PO SCH (09:10)
[2023-01-13] MEDS: LACTOBACILLUS ACIDOPHILUS CAP (BACID) PO SCH ×2 (09:10→17:34)
[2023-01-13] MEDS: ASPIRIN 81MG ENTERIC TABLET PO SCH (09:10)
[2023-01-13] MEDS: MAGNESIUM OXIDE 400MG TAB (MAG-OX) PO SCH ×3 (09:10→20:56)
[2023-01-13] MEDS: OMEPRAZOLE 20MG CAP PO SCH (09:11)
[2023-01-13] MEDS: amLODIPine 5 MG TAB PO SCH (09:11)
[2023-01-13] MEDS: PARoxetine 20MG TABLET PO SCH (09:11)
[2023-01-13] MEDS: GABAPENTIN 400MG CAP PO SCH ×2 (09:11→20:56)
[2023-01-13] MEDS: DOCUSATE SODIUM 100MG CAPSULE PO SCH ×2 (09:11→20:56)
[2023-01-13] MEDS: LORATADINE 10 MG TAB PO SCH (09:21)
[2023-01-13] MEDS: NITROGLYCERIN 2% OINT 1 GM *U/D* PKT TOP SCH ×2 (09:44→20:57)
[2023-01-13] MEDS: ALPRAZolam 0.5 MG TAB PO PRN ×2 (09:59→18:48)
[2023-01-13 11:12] VITALS: BP 140/67
[2023-01-13 15:28] VITALS: BP 144/59
[2023-01-13 20:05] VITALS: BP 125/72
[2023-01-13] MEDS: RAMELTEON 8 MG TAB (ROZEREM) PO SCH (20:55)
[2023-01-13] MEDS: CYCLOBENZAPRINE 10MG TABLET PO PRN (20:55)
[2023-01-14] VITALS: BP 130/62
[2023-01-14] MEDS: ALPRAZolam 0.5 MG TAB PO PRN ×3 (00:47→20:35)
[2023-01-14] MEDS: PERCOCET 5MG/325MG TAB PO PRN ×4 (00:47→20:37)
[2023-01-14] MEDS: ceFAZolin SOD 1 GM in D5W MINI-BAG PLUS 50 ML IV SCH ×2 (02:44→10:30)
[2023-01-14 04:00] VITALS: BP 116/56
[2023-01-14 06:32] LABS: HEMATOCRIT 27.1 % (36.0-47.0); HEMOGLOBIN 8.3 g/dl (12.0-15.5); MEAN CORPUSCULAR HEMOGLOBIN 28.1 pg (27.0-33.0); MEAN CORPUSCULAR HGB CONC 30.6 g/dl (32.0-36.5); MEAN CORPUSCULAR VOLUME 91.9 fl (80.0-96.0); PLATELET COUNT, AUTOMATED 380 10^3/uL (150-450); RED BLOOD COUNT 2.95 10^6/uL (4.00-5.40); WHITE BLOOD COUNT 8.9 10^3/uL (4.0-10.0)
[2023-01-14 06:57] LABS: ALBUMIN 2.7 G/DL (3.2-5.2); ALKALINE PHOSPHATASE 88 U/L (46-116); ALT/SGPT 11 U/L (7.0-40); AST/SGOT 12 U/L (<34); BILIRUBIN,TOTAL 0.3 MG/DL (0.3-1.2); BLOOD UREA NITROGEN 6 MG/DL (9-23); CALCIUM LEVEL 8.8 MG/DL (8.5-10.1); CARBON DIOXIDE LEVEL 30 MMOL/L (20-31); CHLORIDE LEVEL 100 MMOL/L (98-107); CREATININE FOR GFR 0.69 MG/DL (0.55-1.30); GLOMERULAR FILTRATION RATE > 60.0 (>51); GLUCOSE, FASTING 125 MG/DL (60-100); POTASSIUM SERUM 4.3 MMOL/L (3.5-5.1); SODIUM LEVEL 135 MMOL/L (136-145); TOTAL PROTEIN 5.9 G/DL (5.7-8.2)
[2023-01-14] MEDS ORDERED: MAGN400T2 PO (07:14)
[2023-01-14] MEDS ORDERED: ACET1TAB55 PO (07:14)
[2023-01-14] MEDS ORDERED: AMLO1TAB24 PO (07:14)
[2023-01-14] MEDS ORDERED: ASPI81TAEC PO (07:14)
[2023-01-14] MEDS ORDERED: PERCOCET PO (07:14)
[2023-01-14] MEDS ORDERED: RISATAB3 PO (07:14)
[2023-01-14] MEDS ORDERED: OXYC1TAB23 PO (07:14)
[2023-01-14] MEDS ORDERED: ELIQ5TAB PO (07:17)
[2023-01-14] MEDS ORDERED: ATOR40TA75 PO (07:27)
[2023-01-14 08:00] VITALS: BP 119/60
[2023-01-14] MEDS: ASPIRIN 81MG ENTERIC TABLET PO SCH (08:12)
[2023-01-14] MEDS: DOCUSATE SODIUM 100MG CAPSULE PO SCH ×2 (08:12→20:36)
[2023-01-14] MEDS: MAGNESIUM OXIDE 400MG TAB (MAG-OX) PO SCH ×3 (08:13→20:35)
[2023-01-14] MEDS: PARoxetine 20MG TABLET PO SCH (08:14)
[2023-01-14] MEDS: OMEPRAZOLE 20MG CAP PO SCH (08:14)
[2023-01-14] MEDS: GABAPENTIN 400MG CAP PO SCH ×2 (08:15→20:36)
[2023-01-14] MEDS: LACTOBACILLUS ACIDOPHILUS CAP (BACID) PO SCH ×2 (08:15→18:31)
[2023-01-14] MEDS: POTASSIUM CHLORIDE 10MEQ SR TABLET PO SCH (08:16)
[2023-01-14] MEDS: APIXABAN 5 MG TAB (ELIQUIS) PO SCH ×2 (08:16→20:36)
[2023-01-14] MEDS: amLODIPine 5 MG TAB PO SCH (08:17)
[2023-01-14] MEDS: LORATADINE 10 MG TAB PO SCH (08:17)
[2023-01-14] MEDS: NITROGLYCERIN 2% OINT 1 GM *U/D* PKT TOP SCH ×2 (08:18→20:35)
[2023-01-14] MEDS: CYCLOBENZAPRINE 10MG TABLET PO PRN ×2 (08:42→20:35)
[2023-01-14] MEDS: BISACODYL 10MG SUPP PR SCH ×3 (09:00→20:49)
[2023-01-14] MEDS ORDERED: KETOROLAC 30 MG/ML 1ML VIAL IV ONE (09:00)
[2023-01-14] MEDS ORDERED: MIRALAX *UNIT DOSE* 17GM PACKET PO PRN (09:05)
[2023-01-14 12:00] VITALS: BP 130/80
[2023-01-14 16:15] VITALS: BP 112/56
[2023-01-14] MEDS: RAMELTEON 8 MG TAB (ROZEREM) PO SCH (20:35)
[2023-01-14] MEDS: DOXYCYCLINE HYCLATE 100MG TABLET PO SCH (20:36)
[2023-01-14 20:54] VITALS: BP 128/59
[2023-01-14] MEDS ORDERED: SENNA 8.6 MG TAB (SENOKOT) PO SCH (21:00)
[2023-01-15 01:01] VITALS: BP 123/57
[2023-01-15] MEDS: PERCOCET 5MG/325MG TAB PO PRN ×2 (03:04→08:43)
[2023-01-15] MEDS: ALPRAZolam 0.5 MG TAB PO PRN ×2 (03:08→08:39)
[2023-01-15 05:45] VITALS: BP 139/62
[2023-01-15 07:42] VITALS: BP 124/60
[2023-01-15] MEDS: GABAPENTIN 400MG CAP PO SCH (08:38)
[2023-01-15] MEDS: LORATADINE 10 MG TAB PO SCH (08:39)
[2023-01-15] MEDS: LACTOBACILLUS ACIDOPHILUS CAP (BACID) PO SCH (08:39)
[2023-01-15] MEDS: DOCUSATE SODIUM 100MG CAPSULE PO SCH (08:40)
[2023-01-15] MEDS: PARoxetine 20MG TABLET PO SCH (08:40)
[2023-01-15] MEDS: OMEPRAZOLE 20MG CAP PO SCH (08:40)
[2023-01-15] MEDS: POTASSIUM CHLORIDE 10MEQ SR TABLET PO SCH (08:40)
[2023-01-15] MEDS: NITROGLYCERIN 2% OINT 1 GM *U/D* PKT TOP SCH (08:41)
[2023-01-15] MEDS: MAGNESIUM OXIDE 400MG TAB (MAG-OX) PO SCH (08:41)
[2023-01-15 08:42] VITALS: BP 124/60
[2023-01-15] MEDS: amLODIPine 5 MG TAB PO SCH (08:42)
[2023-01-15] MEDS: DOXYCYCLINE HYCLATE 100MG TABLET PO SCH (08:42)
[2023-01-15] MEDS: APIXABAN 5 MG TAB (ELIQUIS) PO SCH (08:42)
[2023-01-15] MEDS: ASPIRIN 81MG ENTERIC TABLET PO SCH (08:42)
[2023-01-15] MEDS: BISACODYL 10MG SUPP PR SCH (09:00)
== END 2023-01-15 16:02 | disposition home or self-care (01) | DRG 181 ==
LOC: M ED 15:45 → M ED INP 19:35 → M MSPAV 22:26 → M PCU 01-07 16:50
PROVIDERS: ADMIT Family Medicine; ATTEND Student in an Organized Health Care Education/Training Program
PROC: 04CR3ZZ Extirpation of Matter from Right Posterior Tibial Artery, Percutaneous Approach (ICD-10-PCS; 2023-01-08)
PROC: 047Y3DZ Dilation of Lower Artery with Intraluminal Device, Percutaneous Approach (ICD-10-PCS; 2023-01-08)
PROC: 047R3DZ Dilation of Right Posterior Tibial Artery with Intraluminal Device, Percutaneous Approach (ICD-10-PCS; 2023-01-08)
PROC: 04CY3ZZ Extirpation of Matter from Lower Artery, Percutaneous Approach (ICD-10-PCS; 2023-01-08)
PROC: 04CP3ZZ Extirpation of Matter from Right Anterior Tibial Artery, Percutaneous Approach (ICD-10-PCS; principal; 2023-01-08 15:00)
DX: I74.3 Embolism and thrombosis of arteries of the lower extremities (principal); I96 Gangrene, not elsewhere classified; I74.10 Embolism and thrombosis of unspecified parts of aorta; Z68.41 Body mass index [BMI] 40.0-44.9, adult; E66.01 Morbid (severe) obesity due to excess calories; L03.115 Cellulitis of right lower limb; F17.210 Nicotine dependence, cigarettes, uncomplicated; F32.A Depression, unspecified; F41.8 Other specified anxiety disorders; I10 Essential (primary) hypertension; I72.4 Aneurysm of artery of lower extremity; K21.9 Gastro-esophageal reflux disease without esophagitis; M54.9 Dorsalgia, unspecified; Z79.899 Other long term (current) drug therapy; Z79.82 Long term (current) use of aspirin; Z88.5 Allergy status to narcotic agent; Z88.8 Allergy status to other drugs, medicaments and biological substances; Z88.6 Allergy status to analgesic agent; F12.90 Cannabis use, unspecified, uncomplicated

== ENCOUNTER 2023-02-20 15:21 | Inpatient (IN) | payer OTHER ==
[~2023-02-20] VITALS: Ht 175.3 cm; Wt 110.2 kg
[~2023-02-20 15:21] MED LIST changes: +ACET-1349 PO; +ACET1TAB55 PO; +ALPR1TAB3 PO; +AMLO1TAB24 PO; +ASPI81TAEC PO; +ATOR40TA75 PO; +ELIQ5TAB PO; +ERGO500029 PO; +LORA-674 PO; +MAGN400T2 PO; +OMEP40CA5 PO; +ONDA4TAB6 SL; +OXYC1TAB23 PO; +POTA1TAB21 PO; +RISATAB3 PO; +ROPI2TAB3 PO
[2023-02-20 16:22] LABS: BASO # 0.1 10^3/uL (0.0-0.2); BASO % 0.7 % (0.0-1.0); EOS # 0.2 10^3/uL (0.0-0.5); EOS % 2.2 % (0.0-3.0); HEMATOCRIT 34.2 % (36.0-47.0); HEMOGLOBIN 10.9 g/dl (12.0-15.5); LYMPH # 2.8 10^3/uL (1.5-5.0); LYMPH % 32.4 % (24.0-44.0); MEAN CORPUSCULAR HEMOGLOBIN 27.3 pg (27.0-33.0); MEAN CORPUSCULAR HGB CONC 31.9 g/dl (32.0-36.5); MEAN CORPUSCULAR VOLUME 85.5 fl (80.0-96.0); MONO # 0.4 10^3/uL (0.0-0.8); MONO % 4.9 % (2.0-8.0); NEUTROPHILS # 5.2 10^3/uL (1.5-8.5); NEUTROPHILS % 59.6 % (36.0-66.0); PLATELET COUNT, AUTOMATED 437 10^3/uL (150-450); WHITE BLOOD COUNT 8.7 10^3/uL (4.0-10.0)
[2023-02-20 16:49] LABS: BLOOD UREA NITROGEN 7 MG/DL (9-23); CALCIUM LEVEL 9.3 MG/DL (8.5-10.1); CARBON DIOXIDE LEVEL 27 MMOL/L (20-31); CHLORIDE LEVEL 104 MMOL/L (98-107); CREATININE FOR GFR 0.74 MG/DL (0.55-1.30); GLOMERULAR FILTRATION RATE > 60.0 (>51); GLUCOSE, FASTING 110 MG/DL (60-100); POTASSIUM SERUM 4.3 MMOL/L (3.5-5.1); SODIUM LEVEL 139 MMOL/L (136-145)
[2023-02-20 16:52] LABS: RSV AMPLIFICATION NEGATIVE (NEGATIVE)
[2023-02-20 17:10] LABS: ERYTHROCYTE SEDIMENTATION RATE 66 mm/hr (0-30)
[2023-02-20] MEDS ORDERED: VANCOMYCIN HCL 750 MG, VIAL MATE ADAPTER 1 EACH in D5W 250 ML IV SCH (17:25)
[2023-02-20] MEDS: MORPHINE 2 MG/ML 1ML VIAL IV PRN ×2 (18:44→23:52)
[2023-02-20] MEDS: ACETAMINOPHEN TAB 650MG DOSE (2X325MG) PO PRN (18:45)
[2023-02-20] MEDS ORDERED: RISATAB3 PO (19:07)
[2023-02-20] MEDS ORDERED: MAGN400T2 PO (19:07)
[2023-02-20] MEDS ORDERED: ELIQ5TAB PO (19:07)
[2023-02-20] MEDS ORDERED: DOCU100C16 PO (19:07)
[2023-02-20] MEDS ORDERED: OXYC7.5T3 PO (19:07)
[2023-02-20] MEDS ORDERED: ATOR40TA75 PO (19:07)
[2023-02-20] MEDS ORDERED: ASPI81TA26 PO (19:07)
[2023-02-20] MEDS ORDERED: AMLO1TAB24 PO (19:07)
[2023-02-20] MEDS ORDERED: HOME MED LIST COMPLETE! XX SCH (19:15)
[2023-02-20] MEDS: CEFEPIME HCL 1 GM in D5W MINI-BAG PLUS 50 ML IV SCH (20:02)
[2023-02-20] MEDS: oxyCODONE 5MG TAB PO PRN (20:03)
[2023-02-20] MEDS ORDERED: VANCOMYCIN HCL 1,000 MG, VIAL MATE ADAPTER 1 EACH in D5W 250 ML IV ONE ×2 (22:00→23:00)
[2023-02-20] MEDS ORDERED: KETOROLAC 30 MG/ML 1ML VIAL IV ONE (22:00)
[2023-02-20 22:17] VITALS: BP 157/69
[2023-02-21] VITALS (8 sets, daily range): BP systolic 103–138; BP diastolic 55–81
[2023-02-21] MEDS ORDERED: CYCLOBENZAPRINE 10MG TABLET PO PRN (00:05)
[2023-02-21] MEDS: GABAPENTIN 400MG CAP PO SCH ×3 (00:23→21:17)
[2023-02-21] MEDS: ONDANSETRON 4MG ORAL DISINTEGRATING TAB SL SCH ×3 (00:24→21:17)
[2023-02-21] MEDS: OMEPRAZOLE 20MG CAP PO SCH ×3 (00:24→21:17)
[2023-02-21] MEDS: ALPRAZolam 0.5 MG TAB PO PRN ×3 (00:24→17:17)
[2023-02-21] MEDS: rOPINIRole 1MG TAB PO SCH ×2 (00:24→21:17)
[2023-02-21] MEDS: oxyCODONE 5MG TAB PO PRN ×3 (00:30→13:48)
[2023-02-21] MEDS: VANCOMYCIN HCL 750 MG, VIAL MATE ADAPTER 1 EACH in D5W 250 ML IV SCH ×4 (05:03→18:44)
[2023-02-21 06:19] LABS: HEMATOCRIT 31.7 % (36.0-47.0); HEMOGLOBIN 9.9 g/dl (12.0-15.5); MEAN CORPUSCULAR HEMOGLOBIN 27.2 pg (27.0-33.0); MEAN CORPUSCULAR HGB CONC 31.2 g/dl (32.0-36.5); MEAN CORPUSCULAR VOLUME 87.1 fl (80.0-96.0); PLATELET COUNT, AUTOMATED 368 10^3/uL (150-450); RED BLOOD COUNT 3.64 10^6/uL (4.00-5.40)
[2023-02-21 06:51] LABS: ALKALINE PHOSPHATASE 152 U/L (46-116); ALT/SGPT 22 U/L (7.0-40); AST/SGOT 57 U/L (<34); BILIRUBIN,TOTAL 0.4 MG/DL (0.3-1.2); BLOOD UREA NITROGEN 7 MG/DL (9-23); CALCIUM LEVEL 8.7 MG/DL (8.5-10.1); CARBON DIOXIDE LEVEL 28 MMOL/L (20-31); CHLORIDE LEVEL 103 MMOL/L (98-107); CREATININE FOR GFR 0.82 MG/DL (0.55-1.30); GLOMERULAR FILTRATION RATE > 60.0 (>51); GLUCOSE, FASTING 121 MG/DL (60-100); MAGNESIUM LEVEL 1.6 MG/DL (1.8-2.4); POTASSIUM SERUM 3.7 MMOL/L (3.5-5.1); SODIUM LEVEL 138 MMOL/L (136-145); TOTAL PROTEIN 5.8 G/DL (5.7-8.2)
[2023-02-21] MEDS: POTASSIUM CHLORIDE 10MEQ SR TABLET PO SCH (08:59)
[2023-02-21] MEDS: PARoxetine 20MG TABLET PO SCH (09:00)
[2023-02-21] MEDS: LACTOBACILLUS ACIDOPHILUS CAP (BACID) PO SCH (09:00)
[2023-02-21] MEDS: MAGNESIUM OXIDE 400MG TAB (MAG-OX) PO SCH ×2 (09:00→21:17)
[2023-02-21] MEDS: LORATADINE 10 MG TAB PO SCH (09:00)
[2023-02-21] MEDS: ATORVASTATIN 20 MG TAB PO SCH (09:00)
[2023-02-21] MEDS: CEFEPIME HCL 1 GM in D5W MINI-BAG PLUS 50 ML IV SCH ×2 (09:01→21:15)
[2023-02-21] MEDS: amLODIPine 5 MG TAB PO SCH (09:02)
[2023-02-21] MEDS: ACETAMINOPHEN TAB 650MG DOSE (2X325MG) PO PRN (13:48)
[2023-02-21] MEDS ORDERED: BUPIVACAINE HCL 0.5% 30ML VIAL As Ordered ONE (19:09)
[2023-02-21] MEDS ORDERED: LIDOCAINE 1% SDV 30ML VIAL As Ordered ONE (19:09)
[2023-02-21] MEDS: MORPHINE 2 MG/ML 1ML VIAL IV PRN (19:26)
[2023-02-21] MEDS ORDERED: fentaNYL 100 MCG/2 ML INJECTION As Ordered ONE (19:56)
[2023-02-21] MEDS ORDERED: LIDOCAINE 2% 100MG/5ML SDV (FOR ANES.) As Ordered ONE (19:56)
[2023-02-21] MEDS ORDERED: MIDAZOLAM INJ 2MG/2ML VIAL As Ordered ONE (19:56)
[2023-02-21] MEDS ORDERED: propofoL 200 MG/20 ML VIAL As Ordered ONE (19:56)
[2023-02-21] MEDS ORDERED: ONDANSETRON 4MG 2ML VIAL IV PRN (20:25)
[2023-02-21] MEDS ORDERED: oxyCODONE 5MG TAB PO PRN (20:25)
[2023-02-21] MEDS ORDERED: HYDROMORPHONE HCL 0.5 MG/ 0.5 ML SYRINGE IV PRN (20:25)
[2023-02-22] VITALS (7 sets, daily range): BP systolic 112–142; BP diastolic 57–73
[2023-02-22] MEDS: oxyCODONE 5MG TAB PO PRN ×3 (01:08→09:31)
[2023-02-22] MEDS: ALPRAZolam 0.5 MG TAB PO PRN ×4 (01:10→22:10)
[2023-02-22] MEDS: MORPHINE 2 MG/ML 1ML VIAL IV PRN (04:29)
[2023-02-22] MEDS: VANCOMYCIN HCL 750 MG, VIAL MATE ADAPTER 1 EACH in D5W 250 ML IV SCH ×3 (04:30→18:44)
[2023-02-22] MEDS ORDERED: HYDROMORPHONE HCL 0.5 MG/ 0.5 ML SYRINGE IV ONE (06:00)
[2023-02-22 06:04] LABS: VANCOMYCIN LEVEL TROUGH 31.6 UG/ML (10.0-20.0)
[2023-02-22 07:54] LABS: BASO # 0.1 10^3/uL (0.0-0.2); BASO % 0.7 % (0.0-1.0); EOS # 0.3 10^3/uL (0.0-0.5); EOS % 3.8 % (0.0-3.0); HEMATOCRIT 34.1 % (36.0-47.0); HEMOGLOBIN 10.4 g/dl (12.0-15.5); LYMPH # 2.6 10^3/uL (1.5-5.0); LYMPH % 35.5 % (24.0-44.0); MEAN CORPUSCULAR HGB CONC 30.5 g/dl (32.0-36.5); MEAN CORPUSCULAR VOLUME 88.6 fl (80.0-96.0); MONO # 0.4 10^3/uL (0.0-0.8); MONO % 5.9 % (2.0-8.0); PLATELET COUNT, AUTOMATED 405 10^3/uL (150-450); RED BLOOD COUNT 3.85 10^6/uL (4.00-5.40); WHITE BLOOD COUNT 7.4 10^3/uL (4.0-10.0)
[2023-02-22 08:01] LABS: ALBUMIN 3.1 G/DL (3.2-5.2); ALKALINE PHOSPHATASE 144 U/L (46-116); ALT/SGPT 19 U/L (7.0-40); AST/SGOT 21 U/L (<34); BILIRUBIN,TOTAL 0.2 MG/DL (0.3-1.2); BLOOD UREA NITROGEN 9 MG/DL (9-23); CARBON DIOXIDE LEVEL 27 MMOL/L (20-31); CHLORIDE LEVEL 103 MMOL/L (98-107); CREATININE FOR GFR 0.89 MG/DL (0.55-1.30); GLOMERULAR FILTRATION RATE > 60.0 (>51); GLUCOSE, FASTING 135 MG/DL (60-100); MAGNESIUM LEVEL 1.8 MG/DL (1.8-2.4); POTASSIUM SERUM 4.1 MMOL/L (3.5-5.1); SODIUM LEVEL 138 MMOL/L (136-145)
[2023-02-22] MEDS: GABAPENTIN 400MG CAP PO SCH ×2 (08:42→20:16)
[2023-02-22] MEDS: OMEPRAZOLE 20MG CAP PO SCH ×2 (08:42→20:16)
[2023-02-22] MEDS: ATORVASTATIN 20 MG TAB PO SCH (08:43)
[2023-02-22] MEDS: POTASSIUM CHLORIDE 10MEQ SR TABLET PO SCH (08:43)
[2023-02-22] MEDS: MAGNESIUM OXIDE 400MG TAB (MAG-OX) PO SCH ×2 (08:43→20:16)
[2023-02-22] MEDS: LORATADINE 10 MG TAB PO SCH (08:43)
[2023-02-22] MEDS: CEFEPIME HCL 1 GM in D5W MINI-BAG PLUS 50 ML IV SCH ×2 (08:43→20:17)
[2023-02-22] MEDS: PARoxetine 20MG TABLET PO SCH (08:43)
[2023-02-22] MEDS: ONDANSETRON 4MG ORAL DISINTEGRATING TAB SL SCH ×2 (08:43→20:16)
[2023-02-22] MEDS: LACTOBACILLUS ACIDOPHILUS CAP (BACID) PO SCH (08:43)
[2023-02-22] MEDS: amLODIPine 5 MG TAB PO SCH (08:47)
[2023-02-22] MEDS ORDERED: ANEXSIA, NORCO 7.5MG/325MG TABLET(HYDROCODONE/APAP) PO PRN (10:40)
[2023-02-22] MEDS: APIXABAN 5 MG TAB (ELIQUIS) PO SCH ×2 (11:01→20:16)
[2023-02-22] MEDS: ASPIRIN 81MG ENTERIC TABLET PO SCH (11:01)
[2023-02-22] MEDS: HYDROMORPHONE HCL 0.5 MG/ 0.5 ML SYRINGE IV PRN ×3 (11:55→23:23)
[2023-02-22] MEDS: PERCOCET 5MG/325MG TAB PO PRN ×2 (15:57→22:09)
[2023-02-22] MEDS ORDERED: VANCOMYCIN HCL 750 MG, VIAL MATE ADAPTER 1 EACH in D5W 250 ML IV SCH ×2 (19:00→20:00)
[2023-02-22] MEDS: rOPINIRole 1MG TAB PO SCH (20:15)
[2023-02-22] MEDS: VANCOMYCIN HCL 500 MG in D5W MINI-BAG PLUS 100 ML IV SCH (20:17)
[2023-02-23 06:00] VITALS: BP 144/69
[2023-02-23] MEDS: VANCOMYCIN HCL 750 MG, VIAL MATE ADAPTER 1 EACH in D5W 250 ML IV SCH ×2 (07:00→19:49)
[2023-02-23] MEDS: VANCOMYCIN HCL 500 MG in D5W MINI-BAG PLUS 100 ML IV SCH ×2 (08:45→20:25)
[2023-02-23] MEDS: MAGNESIUM OXIDE 400MG TAB (MAG-OX) PO SCH ×2 (08:47→20:26)
[2023-02-23] MEDS: PARoxetine 20MG TABLET PO SCH (08:47)
[2023-02-23] MEDS: OMEPRAZOLE 20MG CAP PO SCH ×2 (08:47→20:26)
[2023-02-23] MEDS: ASPIRIN 81MG ENTERIC TABLET PO SCH (08:48)
[2023-02-23] MEDS: ATORVASTATIN 20 MG TAB PO SCH (08:48)
[2023-02-23] MEDS: ONDANSETRON 4MG ORAL DISINTEGRATING TAB SL SCH ×2 (08:48→20:27)
[2023-02-23] MEDS: LORATADINE 10 MG TAB PO SCH (08:48)
[2023-02-23] MEDS: LACTOBACILLUS ACIDOPHILUS CAP (BACID) PO SCH (08:48)
[2023-02-23] MEDS: POTASSIUM CHLORIDE 10MEQ SR TABLET PO SCH (08:48)
[2023-02-23] MEDS: amLODIPine 5 MG TAB PO SCH (08:48)
[2023-02-23] MEDS: APIXABAN 5 MG TAB (ELIQUIS) PO SCH ×2 (08:49→20:27)
[2023-02-23] MEDS: GABAPENTIN 400MG CAP PO SCH ×2 (08:49→20:26)
[2023-02-23] MEDS: PERCOCET 5MG/325MG TAB PO PRN ×2 (08:53→18:16)
[2023-02-23] MEDS: ALPRAZolam 0.5 MG TAB PO PRN ×2 (08:56→18:10)
[2023-02-23] MEDS: CEFEPIME HCL 1 GM in D5W MINI-BAG PLUS 50 ML IV SCH ×2 (10:14→22:42)
[2023-02-23] MEDS: HYDROMORPHONE HCL 0.5 MG/ 0.5 ML SYRINGE IV PRN (10:15)
[2023-02-23 12:36] LABS: CREATININE FOR GFR 0.71 MG/DL (0.55-1.30); GLOMERULAR FILTRATION RATE > 60.0 (>51)
[2023-02-23] MEDS ORDERED: FLUCONAZOLE 50MG TABLET PO ONE (13:00)
[2023-02-23 14:00] VITALS: BP 125/67
[2023-02-23] MEDS ORDERED: CLIN150C17 PO (16:55)
[2023-02-23] MEDS ORDERED: OXYC7.5T3 PO (17:28)
[2023-02-23] MEDS ORDERED: oxyCODONE 5MG TAB PO PRN (18:45)
[2023-02-23] MEDS: rOPINIRole 1MG TAB PO SCH (20:26)
[2023-02-24] MEDS: ALPRAZolam 0.5 MG TAB PO PRN ×2 (00:32→06:43)
[2023-02-24] MEDS: PERCOCET 5MG/325MG TAB PO PRN ×2 (00:35→06:44)
[2023-02-24 00:36] VITALS: BP 132/86
[2023-02-24 04:50] LABS: CREATININE FOR GFR 0.69 MG/DL (0.55-1.30); GLOMERULAR FILTRATION RATE > 60.0 (>51)
[2023-02-24 05:06] VITALS: BP 100/71
[2023-02-24] MEDS: VANCOMYCIN HCL 750 MG, VIAL MATE ADAPTER 1 EACH in D5W 250 ML IV SCH (06:05)
[2023-02-24 06:42] VITALS: BP 122/68
[2023-02-24 06:44] VITALS: BP 122/68
[2023-02-24] MEDS ORDERED: ANEXSIA, NORCO 7.5MG/325MG TABLET(HYDROCODONE/APAP) PO PRN (07:35)
[2023-02-24 09:00] VITALS: BP 122/68
[2023-02-24] MEDS: amLODIPine 5 MG TAB PO SCH (09:00)
[2023-02-24] MEDS: OMEPRAZOLE 20MG CAP PO SCH (09:10)
[2023-02-24] MEDS: PARoxetine 20MG TABLET PO SCH (09:10)
[2023-02-24] MEDS: VANCOMYCIN HCL 500 MG in D5W MINI-BAG PLUS 100 ML IV SCH (09:10)
[2023-02-24] MEDS: GABAPENTIN 400MG CAP PO SCH (09:11)
[2023-02-24] MEDS: ONDANSETRON 4MG ORAL DISINTEGRATING TAB SL SCH (09:11)
[2023-02-24] MEDS: ATORVASTATIN 20 MG TAB PO SCH (09:11)
[2023-02-24] MEDS: ASPIRIN 81MG ENTERIC TABLET PO SCH (09:11)
[2023-02-24] MEDS: LACTOBACILLUS ACIDOPHILUS CAP (BACID) PO SCH (09:11)
[2023-02-24] MEDS: MAGNESIUM OXIDE 400MG TAB (MAG-OX) PO SCH (09:11)
[2023-02-24] MEDS: POTASSIUM CHLORIDE 10MEQ SR TABLET PO SCH (09:11)
[2023-02-24] MEDS: APIXABAN 5 MG TAB (ELIQUIS) PO SCH (09:11)
[2023-02-24] MEDS: LORATADINE 10 MG TAB PO SCH (09:12)
[2023-02-24] MEDS: CEFEPIME HCL 1 GM in D5W MINI-BAG PLUS 50 ML IV SCH (10:41)
== END 2023-02-24 13:33 | disposition left against medical advice (07) | DRG 305 ==
LOC: M ED 15:21 → M ED INP 17:25 → M MSPAV 22:17
PROVIDERS: ADMIT Family Medicine; ATTEND Family Medicine
PROC: 0Y6M0Z9 Detachment at Right Foot, Partial 1st Ray, Open Approach (ICD-10-PCS; principal; 2023-02-21 16:30)
DX: I96 Gangrene, not elsewhere classified (principal); I74.10 Embolism and thrombosis of unspecified parts of aorta; I10 Essential (primary) hypertension; F32.A Depression, unspecified; F41.9 Anxiety disorder, unspecified; M54.2 Cervicalgia; M54.59 Other low back pain; Z79.899 Other long term (current) drug therapy; Z79.82 Long term (current) use of aspirin; Z88.5 Allergy status to narcotic agent; Z88.8 Allergy status to other drugs, medicaments and biological substances; K21.9 Gastro-esophageal reflux disease without esophagitis; E66.9 Obesity, unspecified

== ENCOUNTER → 2023-03-07 | Outpatient (REF) | payer OTHER ==
[~2023-03-07] MED LIST changes: +ASPI81TA26 PO; +CLIN150C17 PO; +OXYC7.5T3 PO
== END ==
LOC: M LAB REF 16:25
PROVIDERS: ATTEND Physician Assistant
DX: Z79.899 Other long term (current) drug therapy (principal)

== ENCOUNTER → 2024-08-27 | Outpatient (REF) | payer OTHER ==
[~2024-08-27] MED LIST changes: -GABA-283 PO; +GABA-284 PO; +LORA-1041 PO; -LORA-674 PO; +ONDA-282 SL; -ONDA4TAB6 SL; -ROPI2TAB3 PO; +ROPI2TAB46 PO; -ROPI4TAB3 PO; +ROPI4TAB36 PO
[2024-08-27 19:18] LABS: HEMOGLOBIN 9.7 g/dl (12.0-15.5); MEAN CORPUSCULAR HEMOGLOBIN 22.4 pg (27.0-33.0); MEAN CORPUSCULAR HGB CONC 29.4 g/dl (32.0-36.5); PLATELET COUNT, AUTOMATED 544 10^3/uL (150-450); RED BLOOD COUNT 4.34 10^6/uL (4.00-5.40); WHITE BLOOD COUNT 9.6 10^3/uL (4.0-10.0)
[2024-08-27 19:43] LABS: CHOLESTEROL LEVEL 241 MG/DL (<200); CHOLESTEROL RISK RATIO 6.11 (<5); HDL CHOLESTEROL 39.4 MG/DL (>40); LDL CHOLESTEROL 170.4 MG/DL (<100); MAGNESIUM LEVEL 1.9 MG/DL (1.8-2.4); NON-HDL-C 201.6 MG/DL; THYROID STIMULATING HORMONE 1.619 uIU/ML (0.55-4.78); TRIGLYCERIDES LEVEL 156 MG/DL (<150)
[2024-08-31 14:43] LABS: IRON (FE) 29 UG/DL (50-170)
[2024-08-31 14:44] LABS: ALBUMIN 3.8 G/DL (3.2-5.2); ALKALINE PHOSPHATASE 133 U/L (35-104); ALT/SGPT 13 U/L (7.0-40); AST/SGOT 9 U/L (<34); BILIRUBIN,TOTAL 0.3 MG/DL (0.3-1.2); BLOOD UREA NITROGEN 13 MG/DL (9-23); CALCIUM LEVEL 9.4 MG/DL (8.5-10.1); CARBON DIOXIDE LEVEL 26 MMOL/L (20-31); CHLORIDE LEVEL 105 MMOL/L (98-107); CREATININE FOR GFR 0.64 MG/DL (0.55-1.30); GLOMERULAR FILTRATION RATE > 60.0 (>51); GLUCOSE, FASTING 96 MG/DL (60-100); PERCENT SATURATION 5.8 % (13.2-45.0); POTASSIUM SERUM 5.7 MMOL/L (3.5-5.1); SODIUM LEVEL 135 MMOL/L (136-145); TOTAL IRON BINDING CAPACITY 497 UG/DL (250-425); TOTAL PROTEIN 7.3 G/DL (5.7-8.2)
[2024-08-31 14:46] LABS: FERRITIN 4.5 NG/ML (7.3-270.7)
== END ==
LOC: M LAB REF 16:22
PROVIDERS: ATTEND Physician Assistant
DX: I10 Essential (primary) hypertension (principal); Z79.891 Long term (current) use of opiate analgesic; E83.42 Hypomagnesemia; D64.9 Anemia, unspecified

== ENCOUNTER → 2025-02-25 | Outpatient (REF) | payer OTHER ==
[~2025-02-25] MED LIST changes: -AMBI10TA PO; +CARI-555 PO; -CARI1TAB7 PO; +ZOLP-533 PO
[2025-02-25 14:18] LABS: BASO # 0.1 10^3/uL (0.0-0.2); BASO % 0.8 % (0.0-1.0); EOS # 0.3 10^3/uL (0.0-0.5); EOS % 2.9 % (0.0-3.0); HEMATOCRIT 43.5 % (36.0-47.0); HEMOGLOBIN 13.7 g/dl (12.0-15.5); LYMPH % 46.3 % (24.0-44.0); MEAN CORPUSCULAR HEMOGLOBIN 29.3 pg (27.0-33.0); MEAN CORPUSCULAR HGB CONC 31.5 g/dl (32.0-36.5); MEAN CORPUSCULAR VOLUME 93.1 fl (80.0-96.0); MONO # 0.5 10^3/uL (0.0-0.8); MONO % 5.8 % (2.0-8.0); NEUTROPHILS # 3.8 10^3/uL (1.5-8.5); NEUTROPHILS % 44.1 % (36.0-66.0); PLATELET COUNT, AUTOMATED 329 10^3/uL (150-450); RED BLOOD COUNT 4.67 10^6/uL (4.00-5.40); WHITE BLOOD COUNT 8.6 10^3/uL (4.0-10.0)
[2025-02-25 14:47] LABS: POTASSIUM SERUM 4.7 MMOL/L (3.5-5.1)
[2025-02-25 14:52] LABS: FERRITIN 18.5 NG/ML (7.3-270.7)
[2025-02-25 14:54] LABS: PERCENT SATURATION 15.8 % (13.2-45.0)
== END ==
LOC: M LABDRWAD 13:27
PROVIDERS: ATTEND Physician Assistant
DX: D50.9 Iron deficiency anemia, unspecified (principal); E87.5 Hyperkalemia